=== PATIENT | male | born 1930 | race Caucasian/White ===

== ENCOUNTER 2016-07-04 20:00 | Inpatient (IN) | payer MEDICARE ==
[~2016-07-04] VITALS: Ht 172.7 cm; Wt 66.0 kg
[~2016-07-04 20:00] MED LIST: ACET325T9 PO; ACET500T68 PO; CHOL10003 PO; CHOL20004 PO; CYAN10005 PO; CYCL10TA2 PO; CYCL5TAB PO; DIVA125C PO; GABA-586 PO; LISI-338 PO; MAG355OR12 PO; MAGN2400 PO; MEDR2.5T PO; MELA1TAB13 PO; MELA3TAB12 PO; MENT113G6 TP; MULT-480 PO; OXYB5TAB7 PO; TRAZ50TA15 PO
[2016-07-04 20:50] LABS: BASO % 0 % (0-3); EOS # 0.2 x10^3/uL (0.0-0.7); EOS % 2 % (0-3); HEMATOCRIT 32.8 % (39.0-53.0); HEMOGLOBIN 10.6 g/dL (13.0-17.5); LYMPH # 1.8 x10^3/uL (1.0-4.8); LYMPH % 19 % (24-48); MEAN CORPUSCULAR HEMOGLOBIN 32 pg (25-35); MEAN CORPUSCULAR HGB CONC 32 g/dL (31-37); MEAN CORPUSCULAR VOLUME 98 fL (79-100); MONO # 0.6 x10^3/uL (0.0-1.1); MONO % 7 % (0-9); NEUT # 6.8 x10^3uL (1.8-7.7); NEUT % 72 % (31-73); PLATELET COUNT 198 x10^3/uL (140-400); RED BLOOD COUNT 3.36 x10^6/uL (4.30-5.70); RED CELL DISTRIBUTION WIDTH 14.4 % (11.5-14.5); WHITE BLOOD COUNT 9.4 x10^3/uL (4.0-11.0)
[2016-07-04 21:01] LABS: ALBUMIN 2.9 g/dL (3.4-5.0); ALBUMIN/GLOBULIN RATIO 0.9 (1.0-1.7); ALK PHOS 74 U/L (46-116); ALT (SGPT) 10 U/L (16-63); ANION GAP 5 (6-14); AST (SGOT) 6 U/L (15-37); BLOOD UREA NITROGEN 30 mg/dL (8-26); BUN/CREATININE RATIO 27 (6-20); CALCIUM 8.6 mg/dL (8.5-10.1); CARBON DIOXIDE 31 mmol/L (21-32); CHLORIDE 105 mmol/L (98-107); CREATININE 1.1 mg/dL (0.7-1.3); GFR 63.3; GLUCOSE 106 mg/dL (70-99); POTASSIUM 4.2 mmol/L (3.5-5.1); SODIUM 141 mmol/L (136-145); TOTAL BILIRUBIN 0.2 mg/dL (0.2-1.0); TOTAL PROTEIN 6.3 g/dL (6.4-8.2)
--- NOTE | 2016-07-04 21:01 | RAD ---
PROCEDURE CT head without contrast HISTORY Altered level consciousness TECHNIQUE Axial images are obtained of the head from the skull base through the vertex without IV contrast FINDINGS There is moderate diffuse atrophy. No obvious intracranial mass, mass-effect, midline shift, hemorrhage or obvious acute infarction is identified.Basilar cisterns are patent. Bone windows demonstrate no acute calvarial abnormality.The visualized paranasal sinuses appear clear. IMPRESSION No acute intracranial process. PQRS Statement: One or more of the following individualized dose reduction techniques were utilized for this study: 1. Automated exposure control. 2. Adjustment of the mA and/or kV according to patient size. 3. Use of iterative reconstruction technique. Electronically signed by: Henry Vega MD (Jul 04, 2016 21:00:37)
[2016-07-04 21:02] LABS: BARBITURATES NEG (NEG); BENZODIAZEPINES NEG (NEG); CANNABINOIDS NEG (NEG); COCAINE NEG (NEG); METHADONE NEG (NEG); OPIATES NEG (NEG); PHENCYCLIDINE NEG (NEG)
[2016-07-04 21:02] LABS: VAL ACID 41 mcg/mL (50-100)
[2016-07-04 21:04] LABS: ACETAMIN < 2.0 mcg/mL (10-30); SALIC 0.4 mg/dL (2.8-20.0)
[2016-07-04 21:05] LABS: ETHANOL < 10 mg/dL (0-10)
[2016-07-04 21:07] LABS: AMPHETAMINE/METHAMPHETAMINE NEG (NEG)
[2016-07-04 21:28] LABS: BILIRUBIN,URINE NEG (NEG); CLARITY,URINE CLOUDY; COLOR,URINE YELLOW; GLUCOSE,URINE NEG (NEG)
[2016-07-04 21:29] LABS: BACTERIA,URINE MOD /HPF (0-FEW); NITRITE,URINE NEG (NEG); RBC,URINE 0 /HPF (0-2); SQUAMOUS EPITHELIAL CELL,UR FEW /LPF; UROBILINOGEN,URINE 1 mg/dL (0.2 mg/dL); WBC,URINE 20-40 /HPF (0-4)
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
--- NOTE | 2016-07-04 22:30 | EKG ---
[address] [address] Test Date: 2016-07-04 Test Time: 20:32:49 Pat Name: RIOS ACUNA Department: Room: Gender: M Project Manager/Design Manager: Brenda : 1930 Requested By: ANTHONY HARGROVE Order Number: [id number] Reading MD: Measurements Intervals [place] Rate: 72 P: 43 MN: 148 QRS: 5 QRSD: 80 T: 62 QT: 374 QTc: 411 Interpretive Statements SINUS RHYTHM QRS(T) CONTOUR ABNORMALITY CONSIDER ANTEROSEPTAL MYOCARDIAL DAMAGE POSSIBLY ABNORMAL ECG RI6.01 Unconfirmed report No previous ECG available for comparison
[2016-07-04] MEDS ORDERED: MAGNESIUM HYDROXIDE 2,400 MG/30 ML ORAL.SUSP. PO PRN (23:00)
[2016-07-04] MEDS ORDERED: METHYL SALICYLATE/MENTHOL TOPICAL OINTMENT 29GM TUBE. TP PRN (23:00)
[2016-07-04] MEDS ORDERED: ACETAMINOPHEN 325 MG TABLET PO PRN (23:00)
[2016-07-04] MEDS ORDERED: MAG HYDROX/AL HYDROX/SIMETH 30 ML ORAL.SUSP PO PRN (23:00)
[2016-07-05] MEDS ORDERED: DONE5TAB7 PO (00:25)
[2016-07-05] MEDS ORDERED: GUAI100L27 PO (00:25)
[2016-07-05] MEDS ORDERED: QUET100T PO (00:25)
[2016-07-05] MEDS ORDERED: TRAZ50TA15 PO (00:25)
[2016-07-05] MEDS ORDERED: DOCU-27 PO (00:25)
[2016-07-05] MEDS ORDERED: CEPH-264 PO (00:25)
[2016-07-05] MEDS ORDERED: RIVA1.5C4 PO (00:25)
[2016-07-05] MEDS ORDERED: HALO1TAB PO (00:25)
[2016-07-05] MEDS ORDERED: CYCL5TAB PO (00:25)
[2016-07-05] MEDS ORDERED: LATA2.5D3 OU (00:25)
[2016-07-05] MEDS ORDERED: HALOPERIDOL 1 MG TABLET PO PRN (00:30)
[2016-07-05 01:01] VITALS: BP 139/97
[2016-07-05 05:52] VITALS: BP 157/79
[2016-07-05] MEDS ORDERED: GUAIFENESIN 300 MG/15 ML LIQUID. PO PRN (07:15)
[2016-07-05] MEDS ORDERED: OXYBUTYNIN CHLORIDE 5 MG TABLET PO PRN (07:15)
[2016-07-05] MEDS ORDERED: CYCLOBENZAPRINE 10 MG TABLET. PO PRN (07:30)
--- NOTE | 2016-07-05 08:13 | PDOC ---
Exam Scar Demential Exam: Scar Note: Please also refer to the addendum to this progress note~for this date of service dictated separately.~Patient seen individually. Discussed the patient with Nursing staff reviewed the chart.~Reviewed interim history and current functioning. Reviewed vital signs,~Labs/ Radiology~and current medications noted below. Continue current treatment with the changes noted in the dictated addendum note Assessment: Vital Signs: Vital Signs Date Time Temp Pulse Resp B/P Pulse Ox O2 Delivery O2 Flow Rate FiO2 07/05/16 05:52 97.5 86 17 157/79 96 07/04/16 20:00 Room Air Labs: Laboratory Tests Test 07/04/16 20:20 07/04/16 20:25 White Blood Count 9.4x10^3/uL (4.0-11.0) Red Blood Count 3.36x10^6/uL (4.30-5.70) L Hemoglobin 10.6g/dL (13.0-17.5) L Hematocrit 32.8% (39.0-53.0) L Mean Corpuscular Volume 98fL (79-100) Mean Corpuscular Hemoglobin 32pg (25-35) Mean Corpuscular Hemoglobin Concent 32g/dL (31-37) Red Cell Distribution Width 14.4% (11.5-14.5) Platelet Count 198x10^3/uL (140-400) Neutrophils (%) (Auto) 72% (31-73) Lymphocytes (%) (Auto) 19% (24-48) L Monocytes (%) (Auto) 7% (0-9) Eosinophils (%) (Auto) 2% (0-3) Basophils (%) (Auto) 0% (0-3) Neutrophils # (Auto) 6.8x10^3uL (1.8-7.7) Lymphocytes # (Auto) 1.8x10^3/uL (1.0-4.8) Monocytes # (Auto) 0.6x10^3/uL (0.0-1.1) Eosinophils # (Auto) 0.2x10^3/uL (0.0-0.7) Basophils # (Auto) 0.0x10^3/uL (0.0-0.2) Sodium Level 141mmol/L (136-145) Potassium Level 4.2mmol/L (3.5-5.1) Chloride Level 105mmol/L (98-107) Carbon Dioxide Level 31mmol/L (21-32) Anion Gap 5 (6-14) L Blood Urea Nitrogen 30mg/dL (8-26) H Creatinine 1.1mg/dL (0.7-1.3) Estimated GFR (Cockcroft-Gault) 63.3 BUN/Creatinine Ratio 27 (6-20) H Glucose Level 106mg/dL (70-99) H Calcium Level 8.6mg/dL (8.5-10.1) Magnesium Level 1.6mg/dL (1.8-2.4) L Total Bilirubin 0.2mg/dL (0.2-1.0) Aspartate Amino Transferase (AST) 6U/L (15-37) L Alanine Aminotransferase (ALT) 10U/L (16-63) L Alkaline Phosphatase 74U/L (46-116) Ammonia 27mcmol/L (11-34) Total Protein 6.3g/dL (6.4-8.2) L Albumin 2.9g/dL (3.4-5.0) L Albumin/Globulin Ratio 0.9 (1.0-1.7) L Salicylates Level 0.4mg/dL (2.8-20.0) L Salicylate Last Dose Date Unknown Salicylate Last Dose Time Unknown Acetaminophen Level < 2.0mcg/mL (10-30) L Acetaminophen Last Dose Date Unknown Acetaminophen Last Dose Time Unknown Valproic Acid Level 41mcg/mL (50-100) L Valproic Acid Last Dose Date Unknown Valproic Acid Last Dose Time Unknown Ethyl Alcohol Level < 10mg/dL (0-10) Acetone Level Neg (NEG) Urine Collection Type Unknown Urine Color Yellow Urine Clarity Cloudy Urine pH 7.0 Urine Specific [place] 1.020 Urine Protein 30 mg/dl (NEG-TRACE) Urine Glucose (UA) Negmg/dL (NEG) Urine Ketones (Stick) Negmg/dL (NEG) Urine Blood Neg (NEG) Urine Nitrite Neg (NEG) Urine Bilirubin Neg (NEG) Urine Urobilinogen Dipstick 1mg/dL (0.2 mg/dL) Urine Leukocyte Esterase Trace (NEG) Urine RBC 0/HPF (0-2) Urine WBC 20-40/HPF (0-4) Urine Squamous Epithelial Cells Few/LPF Urine Bacteria Mod/HPF (0-FEW) Urine Opiates Screen Neg (NEG) Urine Methadone Screen Neg (NEG) Urine Barbiturates Neg (NEG) Urine Phencyclidine Screen Neg (NEG) Urine Amphetamine/Methamphetamine Neg (NEG) Urine Benzodiazepines Screen Neg (NEG) Urine Cocaine Screen Neg (NEG) Urine Cannabinoids Screen Neg (NEG) Urine Ethyl Alcohol Neg (NEG) Current Medications: Meds: Current Medications Acetaminophen (Tylenol) 650 mg PRN Q6HRS PRN PO PAIN / TEMP; Start 07/04/16 at 23:00; Stop 07/05/16 at 07:21; Status DC Multi-Ingredient Ointment (Analgesic Mutual) 1 martir PRN QID PRN TP MUSCLE PAIN; Start 07/04/16 at 23:00 Al Hydroxide/Mg Hydroxide (Mylanta Plus Xs) 15 ml PRN AFTMEALHC PRN PO DYSPEPSIA; Start 07/04/16 at 23:00 Magnesium Hydroxide (Milk Of Magnesia) 2,400 mg PRN QHS PRN PO CONSTIPATION; Start 07/04/16 at 23:00 Divalproex Sodium (Depakote Sprinkles) 125 mg QID PO ; Start 07/05/16 at 09:00 Donepezil HCl (Aricept) 5 mg DAILY PO ; Start 07/05/16 at 09:00 Haloperidol (Haldol) 1 mg PRN Q4HRS PRN PO AGITATION; Start 07/05/16 at 00:30 Medroxyprogesterone Acetate (Provera) 5 mg DAILY PO ; Start 07/05/16 at 09:00 Quetiapine Fumarate (SEROquel) 100 mg BID PO ; Start 07/05/16 at 09:00 Rivastigmine Tartrate (Exelon) 1.5 mg BID PO ; Start 07/05/16 at 09:00 Trazodone HCl (Desyrel) 25 mg QHS PO ; Start 07/05/16 at 21:00 Acetaminophen (Tylenol) 650 mg PRN TID PRN PO PAIN / TEMP; Start 07/05/16 at 07 :15 Cephalexin HCl (Keflex) 500 mg TID PO ; Start 07/05/16 at 09:00 Vitamin D (Vitamin D3) 1,000 unit DAILY PO ; Start 07/05/16 at 09:00 Docusate Sodium (Colace) 100 mg DAILY PO ; Start 07/05/16 at 09:00 Guaifenesin (Robitussin) 200 mg PRN Q8HRS PRN PO COUGH; Start 07/05/16 at 07:15 Latanoprost (Xalatan) 1 drop QHS OU ; Start 07/05/16 at 21:00 Oxybutynin Chloride (Ditropan) 2.5 mg PRN BID PRN PO BLADDER SPASM; Start 07/05 at 07:15 Cyclobenzaprine HCl (Flexeril) 5 mg PRN TID PRN PO MUSCLE SPASMS; Start at 07:30 Active Scripts Active Reported Keflex (Cephalexin) 500 Mg Capsule 500 Mg PO TID Cyclobenzaprine Hcl 5 Mg Tablet 5 Mg PO PRN TID PRN Haloperidol 1 Mg Tablet 1 Mg PO PRN Q4HRS PRN Robafen (Guaifenesin) 100 Mg/5 Ml Liquid 10 Ml PO PRN Q8HRS PRN Trazodone Hcl 50 Mg Tablet 25 Mg PO QHS Latanoprost 2.5 Ml Drops 1 Drop OU QHS Donepezil Hcl 5 Mg Tablet 5 Mg PO DAILY Quetiapine Fumarate 100 Mg Tablet 100 Mg PO BID Rivastigmine (Rivastigmine Tartrate) 1.5 Mg Capsule 1.5 Mg PO BID Colace (Docusate Sodium) 100 Mg Capsule 100 Mg PO DAILY Depakote Sprinkle (Divalproex Sodium) 125 Mg Cap.sprink 125 Mg PO QID Give with food. Do Not Crush or chew lpellets. Hazardous Medication: Dispose of unused medication and packaging in proper container. Provera (Medroxyprogesterone Acetate) 2.5 Mg Tablet 5 Mg PO DAILY Tylenol (Acetaminophen) 325 Mg Tablet 650 Mg PO PRN TID PRN Not to exceed 3 grams per day Vitamin D3 (Cholecalciferol (Vitamin D3)) 1,000 Unit Tablet 1,000 Unit PO DAILY Oxybutynin Chloride 5 Mg Tablet 2.5 Mg PO PRN BID PRN Diagnosis: Problems: (1) Dementia SAPPHIRE MATTHEW MD Jul 05, 2016 08:13
--- NOTE | 2016-07-05 08:19 | RAD ---
EXAM: Chest one view. HISTORY: Cough, altered mental status. COMPARISON: None. FINDINGS: A frontal view of the chest is obtained. There are no confluent infiltrates. There is no pneumothorax or pleural effusion. The heart is not enlarged. There are atherosclerotic calcifications of the aorta. There is a chronic healed left proximal humeral fracture deformity. Changes of rotator cuff arthropathy and moderate glenohumeral osteoarthritis are noted bilaterally. IMPRESSION: 1. No confluent infiltrates.
[2016-07-05] MEDS: DOCUSATE SODIUM 100 MG CAPSULE PO SCH (08:46)
[2016-07-05] MEDS: QUEtiapine 100 MG TABLET. PO SCH ×2 (08:47→19:22)
[2016-07-05] MEDS: CHOLECALCIFEROL (VITAMIN D3) 1,000 UNIT TABLET PO SCH (08:47)
[2016-07-05] MEDS: RIVASTIGMINE. 1.5 MG CAPSULE. PO SCH ×2 (08:47→19:22)
[2016-07-05] MEDS: MEDROXYPROGESTERONE 2.5 MG PO SCH (08:47)
[2016-07-05] MEDS: CEPHALEXIN 500 MG CAPSULE PO SCH ×3 (08:47→19:22)
[2016-07-05] MEDS: DIVALPROEX 125 MG CAP.SPRINK PO SCH ×4 (08:47→19:22)
[2016-07-05] MEDS: DONEPEZIL HCL 5 MG TABLET. PO SCH (08:47)
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
[2016-07-05] MEDS: MAGNESIUM OXIDE 400 MG TABLET PO SCH (12:07)
[2016-07-05 13:45] LABS: IRON,SERUM 21 ug/dL (65-175)
[2016-07-05 15:51] VITALS: BP 125/79
[2016-07-05 19:10] LABS: THYROXINE 3.6 ug/dL (4.5-12.0)
[2016-07-05] MEDS: traZODone 50 MG TABLET. PO SCH (21:29)
[2016-07-05] MEDS: LATANOPROST 0.005% OPHTH SOLUTION 2.5ML BOTTLE. OU SCH (21:29)
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
--- NOTE | 2016-07-05 23:52 | ACF ---
Admission Criteria Forms PSYCHIATRIC DISORDERS Clinical Indications for Inpatient Care (Place 'X' for any and all applicable criteria): Ongoing inpatient care may be needed for ANY ONE of the following(1)(2)(3)(4)(6) (7)(8): [ ]I. Danger to self or others not manageable at lower level of care. [ ]II. Grave disability (eg, inability to perform self care necessary at lower level of care) [X]III. Agitation or inappropriate behavior interfering with care for primary condition (eg, attempting to discontinue lines or drains prematurely, unable to cooperate with respiratory care) [ ]IV. Severe disability or disorder indicated by ALL of the following: [ ]a) Severe behavioral health disorder-related symptoms or condition indicated by ANY ONE of the following: [ ]i) Severe problem with cognition, memory, judgment, or impulse control [ ]ii) Severe clinical manifestations (eg, hallucinations, delusions, other acute psychotic symptoms, phoebe, extreme agitation or anxiety) [ ]b) Patient management at lower level of care is not feasible until acute intervention or modification is initiated. Extended stay beyond goal length of stay for the primary condition may be indicated when ANY ONE of the following is present: (1)(2)(3)(4): [ ]a) Patient is a danger to self or others and not manageable at lower level of care. [ ]b) Behavior crisis management, including physical or chemical restraints, is required and is not available at a lower level of care. [ ]c) Behavioral symptoms (e.g., agitation, somnolence, inappropriate behavior) are present, and are not manageable at a lower level of care. [ ]d) Patient cannot understand follow-up treatment and crisis plan. [ ]e) Provider and supports are not sufficiently available at lower level of care. [ ]f) Patient cannot participate (e.g., verify absence of plan for harm) and is in needed of monitoring. The original [employer] content created by [employer] has been revised. The portions of the content which have been revised are identified through the use of italic text or in bold, and [facility] has neither reviewed nor approved the modified material. All other unmodified content is copyright [facility] [employer]. Please see references footnoted in the original [facility] edition 2016 Admission Criteria Met?: Yes NEO ANDERSON Jul 05, 2016 23:52
[2016-07-06 04:09] LABS: HEMOGLOBIN A1C 5.1 % (4.8-5.6); VITAMIN D25(OH)TOTAL 34.9 ng/mL (30.0-100.0)
[2016-07-06 05:37] VITALS: BP 147/72
--- NOTE | 2016-07-06 08:21 | PDOC ---
Exam Scar Demential Exam: Scar Note: Please also refer to the separate dictated note~for this date of service dictated separately.~Patient seen individually. Discussed the patient with Nursing staff reviewed the chart.~Reviewed interim history and current functioning. Reviewed vital signs,~Labs/ Radiology~and current medications noted below. Continue current treatment with the changes noted in the dictated addendum note Assessment: Vital Signs: Vital Signs Date Time Temp Pulse Resp B/P Pulse Ox O2 Delivery O2 Flow Rate FiO2 07/06/16 05:37 98.4 64 18 147/72 97 07/04/16 20:00 Room Air I&O Intake and Output 07/06/16 07:00 Intake Total 1200 ml Balance 1200 ml Intake Oral 1200 ml Current Medications: Meds: Current Medications Acetaminophen (Tylenol) 650 mg PRN Q6HRS PRN PO PAIN / TEMP; Start 07/04/16 at 23:00; Stop 07/05/16 at 07:21; Status DC Multi-Ingredient Ointment (Analgesic [place]) 1 martir PRN QID PRN TP MUSCLE PAIN; Start 07/04/16 at 23:00 Al Hydroxide/Mg Hydroxide (Mylanta Plus Xs) 15 ml PRN AFTMEALHC PRN PO DYSPEPSIA; Start 07/04/16 at 23:00 Magnesium Hydroxide (Milk Of Magnesia) 2,400 mg PRN QHS PRN PO CONSTIPATION; Start 07/04/16 at 23:00 Divalproex Sodium (Depakote Sprinkles) 125 mg QID PO Last administered on 19:22; Start 07/05/16 at 09:00 Donepezil HCl (Aricept) 5 mg DAILY PO Last administered on 07/05/16 08:47; Start 07/05/16 at 09:00 Haloperidol (Haldol) 1 mg PRN Q4HRS PRN PO AGITATION; Start 07/05/16 at 00:30 Medroxyprogesterone Acetate (Provera) 5 mg DAILY PO Last administered on 08:47; Start 07/05/16 at 09:00 Quetiapine Fumarate (SEROquel) 100 mg BID PO Last administered on 07/05/16 19: 22; Start 07/05/16 at 09:00 Rivastigmine Tartrate (Exelon) 1.5 mg BID PO Last administered on 07/05/16 19: 22; Start 07/05/16 at 09:00 Trazodone HCl (Desyrel) 25 mg QHS PO Last administered on 07/05/16 21:29; Start 07/05/16 at 21:00 Acetaminophen (Tylenol) 650 mg PRN TID PRN PO PAIN / TEMP; Start 07/05/16 at 07 :15 Cephalexin HCl (Keflex) 500 mg TID PO Last administered on 07/05/16 19:22; Start 07/05/16 at 09:00 Vitamin D (Vitamin D3) 1,000 unit DAILY PO Last administered on 07/05/16 08:47 ; Start 07/05/16 at 09:00 Docusate Sodium (Colace) 100 mg DAILY PO Last administered on 07/05/16 08:46; Start 07/05/16 at 09:00 Guaifenesin (Robitussin) 200 mg PRN Q8HRS PRN PO COUGH; Start 07/05/16 at 07:15 Latanoprost (Xalatan) 1 drop QHS OU Last administered on 07/05/16 21:29; Start 07/05/16 at 21:00 Oxybutynin Chloride (Ditropan) 2.5 mg PRN BID PRN PO BLADDER SPASM; Start 07/05 at 07:15 Cyclobenzaprine HCl (Flexeril) 5 mg PRN TID PRN PO MUSCLE SPASMS; Start at 07:30 Magnesium Oxide (Magnesium Oxide) 400 mg DAILY PO Last administered on 12:07; Start 07/05/16 at 11:00 Active Scripts Active Reported Keflex (Cephalexin) 500 Mg Capsule 500 Mg PO TID Cyclobenzaprine Hcl 5 Mg Tablet 5 Mg PO PRN TID PRN Haloperidol 1 Mg Tablet 1 Mg PO PRN Q4HRS PRN Robafen (Guaifenesin) 100 Mg/5 Ml Liquid 10 Ml PO PRN Q8HRS PRN Trazodone Hcl 50 Mg Tablet 25 Mg PO QHS Latanoprost 2.5 Ml Drops 1 Drop OU QHS Donepezil Hcl 5 Mg Tablet 5 Mg PO DAILY Quetiapine Fumarate 100 Mg Tablet 100 Mg PO BID Rivastigmine (Rivastigmine Tartrate) 1.5 Mg Capsule 1.5 Mg PO BID Colace (Docusate Sodium) 100 Mg Capsule 100 Mg PO DAILY Depakote Sprinkle (Divalproex Sodium) 125 Mg Cap.sprink 125 Mg PO QID Give with food. Do Not Crush or chew lpellets. Hazardous Medication: Dispose of unused medication and packaging in proper container. Provera (Medroxyprogesterone Acetate) 2.5 Mg Tablet 5 Mg PO DAILY Tylenol (Acetaminophen) 325 Mg Tablet 650 Mg PO PRN TID PRN Not to exceed 3 grams per day Vitamin D3 (Cholecalciferol (Vitamin D3)) 1,000 Unit Tablet 1,000 Unit PO DAILY Oxybutynin Chloride 5 Mg Tablet 2.5 Mg PO PRN BID PRN Diagnosis: Problems: (1) Dementia SAPPHIRE MATTHEW MD Jul 06, 2016 08:21
[2016-07-06] MEDS: CHOLECALCIFEROL (VITAMIN D3) 1,000 UNIT TABLET PO SCH (09:04)
[2016-07-06] MEDS: DOCUSATE SODIUM 100 MG CAPSULE PO SCH (09:04)
[2016-07-06] MEDS: QUEtiapine 100 MG TABLET. PO SCH ×2 (09:04→19:47)
[2016-07-06] MEDS: DONEPEZIL HCL 5 MG TABLET. PO SCH (09:04)
[2016-07-06] MEDS: MAGNESIUM OXIDE 400 MG TABLET PO SCH (09:04)
[2016-07-06] MEDS: DIVALPROEX 125 MG CAP.SPRINK PO SCH ×4 (09:04→19:46)
[2016-07-06] MEDS: CEPHALEXIN 500 MG CAPSULE PO SCH ×3 (09:04→19:46)
[2016-07-06] MEDS: MEDROXYPROGESTERONE 2.5 MG PO SCH (09:05)
[2016-07-06] MEDS: RIVASTIGMINE. 1.5 MG CAPSULE. PO SCH ×2 (09:05→19:47)
[2016-07-06] MEDS: PRENATAL MULTIVITAMIN TABLET. PO SCH (11:15)
[2016-07-06 15:31] VITALS: BP 125/78
[2016-07-06] MEDS: traZODone 50 MG TABLET. PO SCH (19:47)
[2016-07-06] MEDS: LATANOPROST 0.005% OPHTH SOLUTION 2.5ML BOTTLE. OU SCH (19:53)
[2016-07-06] MEDS: ACETAMINOPHEN 325 MG TABLET PO PRN (21:34)
[2016-07-07 06:27] VITALS: BP 148/80
--- NOTE | 2016-07-07 08:19 | PDOC ---
Exam Scar Demential Exam: Scar Note: Please also refer to the separate dictated note~for this date of service dictated separately.~Patient seen individually. Discussed the patient with Nursing staff reviewed the chart.~Reviewed interim history and current functioning. Reviewed vital signs,~Labs/ Radiology~and current medications noted below. Continue current treatment with the changes noted in the dictated addendum note Assessment: Vital Signs: Vital Signs Date Time Temp Pulse Resp B/P Pulse Ox O2 Delivery O2 Flow Rate FiO2 07/07/16 06:27 98.1 62 16 148/80 97 07/04/16 20:00 Room Air I&O Intake and Output 07/07/16 07:00 Intake Total 600 ml Balance 600 ml Intake Oral 600 ml # Voids 2 Current Medications: Meds: Current Medications Acetaminophen (Tylenol) 650 mg PRN Q6HRS PRN PO PAIN / TEMP; Start 07/04/16 at 23:00; Stop 07/05/16 at 07:21; Status DC Multi-Ingredient Ointment (Analgesic [place]) 1 martir PRN QID PRN TP MUSCLE PAIN; Start 07/04/16 at 23:00 Al Hydroxide/Mg Hydroxide (Mylanta Plus Xs) 15 ml PRN AFTMEALHC PRN PO DYSPEPSIA; Start 07/04/16 at 23:00 Magnesium Hydroxide (Milk Of Magnesia) 2,400 mg PRN QHS PRN PO CONSTIPATION; Start 07/04/16 at 23:00 Divalproex Sodium (Depakote Sprinkles) 125 mg QID PO Last administered on 19:46; Start 07/05/16 at 09:00 Donepezil HCl (Aricept) 5 mg DAILY PO Last administered on 07/06/16 09:04; Start 07/05/16 at 09:00 Haloperidol (Haldol) 1 mg PRN Q4HRS PRN PO AGITATION; Start 07/05/16 at 00:30 Medroxyprogesterone Acetate (Provera) 5 mg DAILY PO Last administered on 09:05; Start 07/05/16 at 09:00 Quetiapine Fumarate (SEROquel) 100 mg BID PO Last administered on 07/06/16 19: 47; Start 07/05/16 at 09:00 Rivastigmine Tartrate (Exelon) 1.5 mg BID PO Last administered on 07/06/16 19: 47; Start 07/05/16 at 09:00 Trazodone HCl (Desyrel) 25 mg QHS PO Last administered on 07/06/16 19:47; Start 07/05/16 at 21:00 Acetaminophen (Tylenol) 650 mg PRN TID PRN PO PAIN / TEMP Last administered on 07/06/16 21:34; Start 07/05/16 at 07:15 Cephalexin HCl (Keflex) 500 mg TID PO Last administered on 07/06/16 19:46; Start 07/05/16 at 09:00 Vitamin D (Vitamin D3) 1,000 unit DAILY PO Last administered on 07/06/16 09:04 ; Start 07/05/16 at 09:00 Docusate Sodium (Colace) 100 mg DAILY PO Last administered on 07/06/16 09:04; Start 07/05/16 at 09:00 Guaifenesin (Robitussin) 200 mg PRN Q8HRS PRN PO COUGH; Start 07/05/16 at 07:15 Latanoprost (Xalatan) 1 drop QHS OU Last administered on 07/06/16 19:53; Start 07/05/16 at 21:00 Oxybutynin Chloride (Ditropan) 2.5 mg PRN BID PRN PO BLADDER SPASM; Start 07/05 at 07:15 Cyclobenzaprine HCl (Flexeril) 5 mg PRN TID PRN PO MUSCLE SPASMS; Start at 07:30 Magnesium Oxide (Magnesium Oxide) 400 mg DAILY PO Last administered on 09:04; Start 07/05/16 at 11:00 Prenat Multivit/ [employer] Director/Iron/Folic Ac (Multivitamin ) 1 tab DAILYBFRLUN PO Last administered on 07/06/16 11:15; Start 07/06/16 at 11:30 Active Scripts Active Reported Keflex (Cephalexin) 500 Mg Capsule 500 Mg PO TID Cyclobenzaprine Hcl 5 Mg Tablet 5 Mg PO PRN TID PRN Haloperidol 1 Mg Tablet 1 Mg PO PRN Q4HRS PRN Robafen (Guaifenesin) 100 Mg/5 Ml Liquid 10 Ml PO PRN Q8HRS PRN Trazodone Hcl 50 Mg Tablet 25 Mg PO QHS Latanoprost 2.5 Ml Drops 1 Drop OU QHS Donepezil Hcl 5 Mg Tablet 5 Mg PO DAILY Quetiapine Fumarate 100 Mg Tablet 100 Mg PO BID Rivastigmine (Rivastigmine Tartrate) 1.5 Mg Capsule 1.5 Mg PO BID Colace (Docusate Sodium) 100 Mg Capsule 100 Mg PO DAILY Depakote Sprinkle (Divalproex Sodium) 125 Mg Cap.sprink 125 Mg PO QID Give with food. Do Not Crush or chew lpellets. Hazardous Medication: Dispose of unused medication and packaging in proper container. Provera (Medroxyprogesterone Acetate) 2.5 Mg Tablet 5 Mg PO DAILY Tylenol (Acetaminophen) 325 Mg Tablet 650 Mg PO PRN TID PRN Not to exceed 3 grams per day Vitamin D3 (Cholecalciferol (Vitamin D3)) 1,000 Unit Tablet 1,000 Unit PO DAILY Oxybutynin Chloride 5 Mg Tablet 2.5 Mg PO PRN BID PRN Diagnosis: Problems: (1) Dementia SAPPHIRE MATTHEW MD Jul 07, 2016 08:19
[2016-07-07] MEDS: DONEPEZIL HCL 5 MG TABLET. PO SCH (08:46)
[2016-07-07] MEDS: DIVALPROEX 125 MG CAP.SPRINK PO SCH ×4 (08:46→19:24)
[2016-07-07] MEDS: DOCUSATE SODIUM 100 MG CAPSULE PO SCH (08:46)
[2016-07-07] MEDS: RIVASTIGMINE. 1.5 MG CAPSULE. PO SCH ×2 (08:47→19:24)
[2016-07-07] MEDS: MAGNESIUM OXIDE 400 MG TABLET PO SCH (08:47)
[2016-07-07] MEDS: CEPHALEXIN 500 MG CAPSULE PO SCH (08:47)
[2016-07-07] MEDS: QUEtiapine 100 MG TABLET. PO SCH ×2 (08:48→19:24)
[2016-07-07] MEDS: MEDROXYPROGESTERONE 2.5 MG PO SCH (08:48)
[2016-07-07] MEDS: CHOLECALCIFEROL (VITAMIN D3) 1,000 UNIT TABLET PO SCH (08:48)
[2016-07-07] MEDS: PRENATAL MULTIVITAMIN TABLET. PO SCH (13:22)
[2016-07-07 16:09] VITALS: BP 162/51
[2016-07-07] MEDS: LATANOPROST 0.005% OPHTH SOLUTION 2.5ML BOTTLE. OU SCH (19:23)
[2016-07-07] MEDS: traZODone 50 MG TABLET. PO SCH (19:24)
[2016-07-08 06:36] VITALS: BP 135/76
--- NOTE | 2016-07-08 08:22 | PDOC ---
Exam Scar Demential Exam: Scar Note: Please also refer to the separate dictated note~for this date of service dictated separately.~Patient seen individually. Discussed the patient with Nursing staff reviewed the chart.~Reviewed interim history and current functioning. Reviewed vital signs,~Labs/ Radiology~and current medications noted below. Continue current treatment with the changes noted in the dictated addendum note Assessment: Vital Signs: Vital Signs Date Time Temp Pulse Resp B/P Pulse Ox O2 Delivery O2 Flow Rate FiO2 07/08/16 06:36 98.1 67 16 135/76 97 Room Air I&O Intake and Output 07/08/16 07:00 Intake Total 960 ml Balance 960 ml Intake Oral 960 ml Current Medications: Meds: Current Medications Acetaminophen (Tylenol) 650 mg PRN Q6HRS PRN PO PAIN / TEMP; Start 07/04/16 at 23:00; Stop 07/05/16 at 07:21; Status DC Multi-Ingredient Ointment (Analgesic [place]) 1 martir PRN QID PRN TP MUSCLE PAIN; Start 07/04/16 at 23:00 Al Hydroxide/Mg Hydroxide (Mylanta Plus Xs) 15 ml PRN AFTMEALHC PRN PO DYSPEPSIA; Start 07/04/16 at 23:00 Magnesium Hydroxide (Milk Of Magnesia) 2,400 mg PRN QHS PRN PO CONSTIPATION; Start 07/04/16 at 23:00 Divalproex Sodium (Depakote Sprinkles) 125 mg QID PO Last administered on 19:24; Start 07/05/16 at 09:00 Donepezil HCl (Aricept) 5 mg DAILY PO Last administered on 07/07/16 08:46; Start 07/05/16 at 09:00 Haloperidol (Haldol) 1 mg PRN Q4HRS PRN PO AGITATION; Start 07/05/16 at 00:30 Medroxyprogesterone Acetate (Provera) 5 mg DAILY PO Last administered on 08:48; Start 07/05/16 at 09:00 Quetiapine Fumarate (SEROquel) 100 mg BID PO Last administered on 07/07/16 19: 24; Start 07/05/16 at 09:00 Rivastigmine Tartrate (Exelon) 1.5 mg BID PO Last administered on 07/07/16 19: 24; Start 07/05/16 at 09:00 Trazodone HCl (Desyrel) 25 mg QHS PO Last administered on 07/07/16 19:24; Start 07/05/16 at 21:00 Acetaminophen (Tylenol) 650 mg PRN TID PRN PO PAIN / TEMP Last administered on 07/06/16 21:34; Start 07/05/16 at 07:15 Cephalexin HCl (Keflex) 500 mg TID PO Last administered on 07/07/16 08:47; Start 07/05/16 at 09:00; Stop 07/07/16 at 12:32; Status DC Vitamin D (Vitamin D3) 1,000 unit DAILY PO Last administered on 07/07/16 08:48 ; Start 07/05/16 at 09:00 Docusate Sodium (Colace) 100 mg DAILY PO Last administered on 07/07/16 08:46; Start 07/05/16 at 09:00 Guaifenesin (Robitussin) 200 mg PRN Q8HRS PRN PO COUGH; Start 07/05/16 at 07:15 Latanoprost (Xalatan) 1 drop QHS OU Last administered on 07/07/16 19:23; Start 07/05/16 at 21:00 Oxybutynin Chloride (Ditropan) 2.5 mg PRN BID PRN PO BLADDER SPASM; Start 07/05 at 07:15 Cyclobenzaprine HCl (Flexeril) 5 mg PRN TID PRN PO MUSCLE SPASMS; Start at 07:30 Magnesium Oxide (Magnesium Oxide) 400 mg DAILY PO Last administered on 08:47; Start 07/05/16 at 11:00 Prenat Multivit/ Garment [employer]oper/Iron/Folic Ac (Multivitamin ) 1 tab DAILYBFRLUN PO Last administered on 07/07/16 13:22; Start 07/06/16 at 11:30 Active Scripts Active Reported Keflex (Cephalexin) 500 Mg Capsule 500 Mg PO TID Cyclobenzaprine Hcl 5 Mg Tablet 5 Mg PO PRN TID PRN Haloperidol 1 Mg Tablet 1 Mg PO PRN Q4HRS PRN Robafen (Guaifenesin) 100 Mg/5 Ml Liquid 10 Ml PO PRN Q8HRS PRN Trazodone Hcl 50 Mg Tablet 25 Mg PO QHS Latanoprost 2.5 Ml Drops 1 Drop OU QHS Donepezil Hcl 5 Mg Tablet 5 Mg PO DAILY Quetiapine Fumarate 100 Mg Tablet 100 Mg PO BID Rivastigmine (Rivastigmine Tartrate) 1.5 Mg Capsule 1.5 Mg PO BID Colace (Docusate Sodium) 100 Mg Capsule 100 Mg PO DAILY Depakote Sprinkle (Divalproex Sodium) 125 Mg Cap.sprink 125 Mg PO QID Give with food. Do Not Crush or chew lpellets. Hazardous Medication: Dispose of unused medication and packaging in proper container. Provera (Medroxyprogesterone Acetate) 2.5 Mg Tablet 5 Mg PO DAILY Tylenol (Acetaminophen) 325 Mg Tablet 650 Mg PO PRN TID PRN Not to exceed 3 grams per day Vitamin D3 (Cholecalciferol (Vitamin D3)) 1,000 Unit Tablet 1,000 Unit PO DAILY Oxybutynin Chloride 5 Mg Tablet 2.5 Mg PO PRN BID PRN Diagnosis: Problems: (1) Dementia SAPPHIRE MATTHEW MD Jul 08, 2016 08:22
[2016-07-08] MEDS: RIVASTIGMINE. 1.5 MG CAPSULE. PO SCH (09:00)
[2016-07-08] MEDS: MEDROXYPROGESTERONE 2.5 MG PO SCH (09:06)
[2016-07-08] MEDS: DIVALPROEX 125 MG CAP.SPRINK PO SCH ×4 (09:06→19:34)
[2016-07-08] MEDS: QUEtiapine 100 MG TABLET. PO SCH ×2 (09:06→19:35)
[2016-07-08] MEDS: DOCUSATE SODIUM 100 MG CAPSULE PO SCH (09:14)
[2016-07-08] MEDS: DONEPEZIL HCL 5 MG TABLET. PO SCH (09:14)
[2016-07-08] MEDS: MAGNESIUM OXIDE 400 MG TABLET PO SCH (09:15)
[2016-07-08] MEDS: CHOLECALCIFEROL (VITAMIN D3) 1,000 UNIT TABLET PO SCH (09:15)
[2016-07-08] MEDS: PRENATAL MULTIVITAMIN TABLET. PO SCH (13:00)
--- NOTE | 2016-07-08 14:57 | PN ---
DATE: 07/06/2016 This is a late entry 07/06/2016, covers elements not covered in my initial note. SUBJECTIVE: The patient remains somewhat forgetful; otherwise, pleasant, did not want things placed in his closet per nursing report, but relented. He is able to transfer himself from the wheelchair to the chair and his bed. I met with him at some length in his room. REVIEW OF SYSTEMS: No CV, , pulmonary, eye system symptoms on review. Ambulation impaired. MENTAL STATUS EXAM: Reasonably oriented. Speech has some latency, coherent. He is pleasant. We discussed circumstances prompting admission and ways to prevent this happening again. Abstraction fair, computation impaired, language function intact, attention span short, mood and affect appears calmer. LABORATORY DATA: Reviewed. 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 PLAN: Maintain trazodone 25 mg at bedtime, Exelon is 1.5 mg b.i.d. We may increase to 3 mg b.i.d. in due course. Continue Seroquel 100 b.i.d., Provera 5 mg a day, Aricept is 5 mg a day, may need to increase this. Depakote is 125 mg 4 times a day, since there is no aggression, I will not increase it; Haldol is p.r.n. We may also need to add an SSRI agent for his mood and anxiety symptoms. We will reassess in 24 hours. MAN Tory MATTHEW MD DR: AR/becky JOB#: [id number] / [id number]
--- NOTE | 2016-07-08 15:01 | PN ---
DATE: 07/07/2016 This is a late entry for 07/07/2016, covers elements not covered in my initial note. SUBJECTIVE: The patient's UA is negative, Keflex was discontinued. He has had a good day on 07/07/2016 per nursing report, not agitated, aggressive, able to transfer himself for certain things. I met with him individually at some length in his room. REVIEW OF SYSTEMS: Ambulation impaired. No CV, , pulmonary, eye, ENT system symptoms on review. MENTAL STATUS EXAM: Oriented to himself and situation. Speech has some latency, coherent. Abstraction fair, computation impaired, language function intact, attention span short, mood and affect still somewhat dysphoric, anxious. LABORATORY DATA: Reviewed. IMPRESSION: Major depressive disorder, recurrent; anxiety disorder, unspecified; major neurocognitive disorder, Alzheimer, vascular with depression, history of delusions. PLAN: Start Zoloft 25 mg a day, continue trazodone, Exelon is 1.5 mg b.i.d., we will increase to 1.5 mg in the morning and 3 mg at night; discontinue the Aricept since he is on the Exelon. Continue Haldol p.r.n., Depakote at current dosage, Provera 5 mg a day, Seroquel 100 b.i.d. Adjust further as clinically indicated. MAN Tory MATTHEW MD DR: AR/becky JOB#: [id number] / [id number]
[2016-07-08 15:39] VITALS: BP 144/83
[2016-07-08] MEDS: traZODone 50 MG TABLET. PO SCH (19:35)
[2016-07-08] MEDS: RIVASTIGMINE 3 MG CAPSULE. PO SCH (19:43)
[2016-07-08] MEDS: LATANOPROST 0.005% OPHTH SOLUTION 2.5ML BOTTLE. OU SCH (19:44)
[2016-07-09] MEDS: ACETAMINOPHEN 325 MG TABLET PO PRN (05:01)
[2016-07-09 05:52] VITALS: BP 142/69
[2016-07-09] MEDS: DONEPEZIL HCL 5 MG TABLET. PO SCH (08:14)
[2016-07-09] MEDS: DIVALPROEX 125 MG CAP.SPRINK PO SCH ×4 (08:14→21:18)
[2016-07-09] MEDS: MEDROXYPROGESTERONE 2.5 MG PO SCH (08:14)
[2016-07-09] MEDS: MAGNESIUM OXIDE 400 MG TABLET PO SCH (08:14)
[2016-07-09] MEDS: DOCUSATE SODIUM 100 MG CAPSULE PO SCH (08:14)
[2016-07-09] MEDS: QUEtiapine 100 MG TABLET. PO SCH (08:14)
[2016-07-09] MEDS: CHOLECALCIFEROL (VITAMIN D3) 1,000 UNIT TABLET PO SCH (08:14)
[2016-07-09] MEDS: DULOXETINE HCL 20 MG CAPSULE.DR PO SCH (08:16)
[2016-07-09] MEDS: RIVASTIGMINE. 1.5 MG CAPSULE. PO SCH (08:16)
--- NOTE | 2016-07-09 09:06 | PDOC ---
Exam Scar Demential Exam: Scar Note: Please also refer to the separate dictated note~for this date of service dictated separately.~Patient seen individually. Discussed the patient with Nursing staff reviewed the chart.~Reviewed interim history and current functioning. Reviewed vital signs,~Labs/ Radiology~and current medications noted below. Continue current treatment with the changes noted in the dictated addendum note Assessment: Vital Signs: Vital Signs Date Time Temp Pulse Resp B/P Pulse Ox O2 Delivery O2 Flow Rate FiO2 07/09/16 05:52 98.6 71 18 142/69 96 07/08/16 06:36 Room Air I&O Intake and Output 07/09/16 07:00 Intake Total 1320 ml Balance 1320 ml Intake Oral 1320 ml # Voids 2 Current Medications: Meds: Current Medications Acetaminophen (Tylenol) 650 mg PRN Q6HRS PRN PO PAIN / TEMP; Start 07/04/16 at 23:00; Stop 07/05/16 at 07:21; Status DC Multi-Ingredient Ointment (Analgesic [place]) 1 martir PRN QID PRN TP MUSCLE PAIN; Start 07/04/16 at 23:00 Al Hydroxide/Mg Hydroxide (Mylanta Plus Xs) 15 ml PRN AFTMEALHC PRN PO DYSPEPSIA; Start 07/04/16 at 23:00 Magnesium Hydroxide (Milk Of Magnesia) 2,400 mg PRN QHS PRN PO CONSTIPATION; Start 07/04/16 at 23:00 Divalproex Sodium (Depakote Sprinkles) 125 mg QID PO Last administered on 08:14; Start 07/05/16 at 09:00 Donepezil HCl (Aricept) 5 mg DAILY PO Last administered on 07/09/16 08:14; Start 07/05/16 at 09:00 Haloperidol (Haldol) 1 mg PRN Q4HRS PRN PO AGITATION Last administered on 11:40; Start 07/05/16 at 00:30 Medroxyprogesterone Acetate (Provera) 5 mg DAILY PO Last administered on 08:14; Start 07/05/16 at 09:00 Quetiapine Fumarate (SEROquel) 100 mg BID PO Last administered on 07/09/16 08: 14; Start 07/05/16 at 09:00 Rivastigmine Tartrate (Exelon) 1.5 mg BID PO Last administered on 07/07/16 19: 24; Start 07/05/16 at 09:00; Stop 07/08/16 at 11:41; Status DC Trazodone HCl (Desyrel) 25 mg QHS PO Last administered on 07/08/16 19:35; Start 07/05/16 at 21:00 Acetaminophen (Tylenol) 650 mg PRN TID PRN PO PAIN / TEMP Last administered on 07/09/16 05:01; Start 07/05/16 at 07:15 Cephalexin HCl (Keflex) 500 mg TID PO Last administered on 07/07/16 08:47; Start 07/05/16 at 09:00; Stop 07/07/16 at 12:32; Status DC Vitamin D (Vitamin D3) 1,000 unit DAILY PO Last administered on 07/09/16 08:14 ; Start 07/05/16 at 09:00 Docusate Sodium (Colace) 100 mg DAILY PO Last administered on 07/09/16 08:14; Start 07/05/16 at 09:00 Guaifenesin (Robitussin) 200 mg PRN Q8HRS PRN PO COUGH; Start 07/05/16 at 07:15 Latanoprost (Xalatan) 1 drop QHS OU Last administered on 07/08/16 19:44; Start 07/05/16 at 21:00 Oxybutynin Chloride (Ditropan) 2.5 mg PRN BID PRN PO BLADDER SPASM; Start 07/05 at 07:15 Cyclobenzaprine HCl (Flexeril) 5 mg PRN TID PRN PO MUSCLE SPASMS; Start at 07:30 Magnesium Oxide (Magnesium Oxide) 400 mg DAILY PO Last administered on 08:14; Start 07/05/16 at 11:00 Prenat Multivit/ [employer]eter/Iron/Folic Ac (Multivitamin ) 1 tab DAILYBFRLUN PO Last administered on 07/08/16 13:00; Start 07/06/16 at 11:30 Rivastigmine Tartrate (Exelon) 1.5 mg DAILY08 PO Last administered on 08:16; Start 07/09/16 at 08:00 Rivastigmine Tartrate (Exelon) 3 mg HS PO Last administered on 07/08/16 19:43 ; Start 07/08/16 at 21:00 Duloxetine HCl (Cymbalta) 20 mg DAILY PO Last administered on 07/09/16 08:16; Start 07/09/16 at 09:00 Active Scripts Active Reported Keflex (Cephalexin) 500 Mg Capsule 500 Mg PO TID Cyclobenzaprine Hcl 5 Mg Tablet 5 Mg PO PRN TID PRN Haloperidol 1 Mg Tablet 1 Mg PO PRN Q4HRS PRN Robafen (Guaifenesin) 100 Mg/5 Ml Liquid 10 Ml PO PRN Q8HRS PRN Trazodone Hcl 50 Mg Tablet 25 Mg PO QHS Latanoprost 2.5 Ml Drops 1 Drop OU QHS Donepezil Hcl 5 Mg Tablet 5 Mg PO DAILY Quetiapine Fumarate 100 Mg Tablet 100 Mg PO BID Rivastigmine (Rivastigmine Tartrate) 1.5 Mg Capsule 1.5 Mg PO BID Colace (Docusate Sodium) 100 Mg Capsule 100 Mg PO DAILY Depakote Sprinkle (Divalproex Sodium) 125 Mg Cap.sprink 125 Mg PO QID Give with food. Do Not Crush or chew lpellets. Hazardous Medication: Dispose of unused medication and packaging in proper container. Provera (Medroxyprogesterone Acetate) 2.5 Mg Tablet 5 Mg PO DAILY Tylenol (Acetaminophen) 325 Mg Tablet 650 Mg PO PRN TID PRN Not to exceed 3 grams per day Vitamin D3 (Cholecalciferol (Vitamin D3)) 1,000 Unit Tablet 1,000 Unit PO DAILY Oxybutynin Chloride 5 Mg Tablet 2.5 Mg PO PRN BID PRN Diagnosis: Problems: (1) Dementia SAPPHIRE MATTHEW MD Jul 09, 2016 09:06
[2016-07-09] MEDS: PRENATAL MULTIVITAMIN TABLET. PO SCH (11:30)
[2016-07-09 15:36] VITALS: BP 132/80
[2016-07-09] MEDS: QUEtiapine 50 MG TABLET. PO SCH ×2 (16:52→21:24)
[2016-07-09] MEDS: traZODone 50 MG TABLET. PO SCH (21:18)
[2016-07-09] MEDS: RIVASTIGMINE 3 MG CAPSULE. PO SCH (21:18)
[2016-07-09] MEDS: LATANOPROST 0.005% OPHTH SOLUTION 2.5ML BOTTLE. OU SCH (21:19)
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
[2016-07-10 06:06] VITALS: BP 137/70
[2016-07-10] MEDS: DOCUSATE SODIUM 100 MG CAPSULE PO SCH (08:24)
[2016-07-10] MEDS: PRENATAL MULTIVITAMIN TABLET. PO SCH (08:24)
[2016-07-10] MEDS: CHOLECALCIFEROL (VITAMIN D3) 1,000 UNIT TABLET PO SCH (08:24)
[2016-07-10] MEDS: DONEPEZIL HCL 5 MG TABLET. PO SCH (08:24)
[2016-07-10] MEDS: MEDROXYPROGESTERONE 2.5 MG PO SCH (08:24)
[2016-07-10] MEDS: DULOXETINE HCL 20 MG CAPSULE.DR PO SCH (08:25)
[2016-07-10] MEDS: MAGNESIUM OXIDE 400 MG TABLET PO SCH (08:25)
[2016-07-10] MEDS: DIVALPROEX 125 MG CAP.SPRINK PO SCH ×4 (08:25→19:33)
[2016-07-10] MEDS: QUEtiapine 50 MG TABLET. PO SCH ×4 (08:25→19:33)
[2016-07-10] MEDS: RIVASTIGMINE. 1.5 MG CAPSULE. PO SCH (08:25)
--- NOTE | 2016-07-10 09:46 | PDOC ---
Exam Scar Demential Exam: Scar Note: Please also refer to the separate dictated note~for this date of service dictated separately.~Patient seen individually. Discussed the patient with Nursing staff reviewed the chart.~Reviewed interim history and current functioning. Reviewed vital signs,~Labs/ Radiology~and current medications noted below. Continue current treatment with the changes noted in the dictated addendum note Assessment: Vital Signs: Vital Signs Date Time Temp Pulse Resp B/P Pulse Ox O2 Delivery O2 Flow Rate FiO2 07/10/16 06:06 97.6 69 16 137/70 97 07/08/16 06:36 Room Air I&O Intake and Output 07/10/16 07:00 Intake Total 1080 ml Balance 1080 ml Intake Oral 1080 ml # Voids 1 # Bowel Movements 1 Current Medications: Meds: Current Medications Acetaminophen (Tylenol) 650 mg PRN Q6HRS PRN PO PAIN / TEMP; Start 07/04/16 at 23:00; Stop 07/05/16 at 07:21; Status DC Multi-Ingredient Ointment (Analgesic [place]) 1 martir PRN QID PRN TP MUSCLE PAIN; Start 07/04/16 at 23:00 Al Hydroxide/Mg Hydroxide (Mylanta Plus Xs) 15 ml PRN AFTMEALHC PRN PO DYSPEPSIA; Start 07/04/16 at 23:00 Magnesium Hydroxide (Milk Of Magnesia) 2,400 mg PRN QHS PRN PO CONSTIPATION; Start 07/04/16 at 23:00 Divalproex Sodium (Depakote Sprinkles) 125 mg QID PO Last administered on 08:25; Start 07/05/16 at 09:00 Donepezil HCl (Aricept) 5 mg DAILY PO Last administered on 07/10/16 08:24; Start 07/05/16 at 09:00 Haloperidol (Haldol) 1 mg PRN Q4HRS PRN PO AGITATION Last administered on 11:40; Start 07/05/16 at 00:30 Medroxyprogesterone Acetate (Provera) 5 mg DAILY PO Last administered on 08:24; Start 07/05/16 at 09:00 Quetiapine Fumarate (SEROquel) 100 mg BID PO Last administered on 07/09/16 08: 14; Start 07/05/16 at 09:00; Stop 07/09/16 at 15:41; Status DC Rivastigmine Tartrate (Exelon) 1.5 mg BID PO Last administered on 07/07/16 19: 24; Start 07/05/16 at 09:00; Stop 07/08/16 at 11:41; Status DC Trazodone HCl (Desyrel) 25 mg QHS PO Last administered on 07/09/16 21:18; Start 07/05/16 at 21:00 Acetaminophen (Tylenol) 650 mg PRN TID PRN PO PAIN / TEMP Last administered on 07/09/16 05:01; Start 07/05/16 at 07:15 Cephalexin HCl (Keflex) 500 mg TID PO Last administered on 07/07/16 08:47; Start 07/05/16 at 09:00; Stop 07/07/16 at 12:32; Status DC Vitamin D (Vitamin D3) 1,000 unit DAILY PO Last administered on 07/10/16 08:24 ; Start 07/05/16 at 09:00 Docusate Sodium (Colace) 100 mg DAILY PO Last administered on 07/10/16 08:24; Start 07/05/16 at 09:00 Guaifenesin (Robitussin) 200 mg PRN Q8HRS PRN PO COUGH; Start 07/05/16 at 07:15 Latanoprost (Xalatan) 1 drop QHS OU Last administered on 07/09/16 21:19; Start 07/05/16 at 21:00 Oxybutynin Chloride (Ditropan) 2.5 mg PRN BID PRN PO BLADDER SPASM; Start 07/05 at 07:15 Cyclobenzaprine HCl (Flexeril) 5 mg PRN TID PRN PO MUSCLE SPASMS; Start at 07:30 Magnesium Oxide (Magnesium Oxide) 400 mg DAILY PO Last administered on 08:25; Start 07/05/16 at 11:00 Prenat Multivit/ [place]/Iron/Folic Ac (Multivitamin ) 1 tab DAILYBFRLUN PO Last administered on 07/10/16 08:24; Start 07/06/16 at 11:30 Rivastigmine Tartrate (Exelon) 1.5 mg DAILY08 PO Last administered on 08:25; Start 07/09/16 at 08:00 Rivastigmine Tartrate (Exelon) 3 mg HS PO Last administered on 07/09/16 21:18 ; Start 07/08/16 at 21:00 Duloxetine HCl (Cymbalta) 20 mg DAILY PO Last administered on 07/10/16 08:25; Start 07/09/16 at 09:00 Quetiapine Fumarate (SEROquel) 50 mg QID PO Last administered on 07/10/16 08: 25; Start 07/09/16 at 17:00 Active Scripts Active Reported Keflex (Cephalexin) 500 Mg Capsule 500 Mg PO TID Cyclobenzaprine Hcl 5 Mg Tablet 5 Mg PO PRN TID PRN Haloperidol 1 Mg Tablet 1 Mg PO PRN Q4HRS PRN Robafen (Guaifenesin) 100 Mg/5 Ml Liquid 10 Ml PO PRN Q8HRS PRN Trazodone Hcl 50 Mg Tablet 25 Mg PO QHS Latanoprost 2.5 Ml Drops 1 Drop OU QHS Donepezil Hcl 5 Mg Tablet 5 Mg PO DAILY Quetiapine Fumarate 100 Mg Tablet 100 Mg PO BID Rivastigmine (Rivastigmine Tartrate) 1.5 Mg Capsule 1.5 Mg PO BID Colace (Docusate Sodium) 100 Mg Capsule 100 Mg PO DAILY Depakote Sprinkle (Divalproex Sodium) 125 Mg Cap.sprink 125 Mg PO QID Give with food. Do Not Crush or chew lpellets. Hazardous Medication: Dispose of unused medication and packaging in proper container. Provera (Medroxyprogesterone Acetate) 2.5 Mg Tablet 5 Mg PO DAILY Tylenol (Acetaminophen) 325 Mg Tablet 650 Mg PO PRN TID PRN Not to exceed 3 grams per day Vitamin D3 (Cholecalciferol (Vitamin D3)) 1,000 Unit Tablet 1,000 Unit PO DAILY Oxybutynin Chloride 5 Mg Tablet 2.5 Mg PO PRN BID PRN Diagnosis: Problems: (1) Dementia SAPPHIRE MATTHEW MD Jul 10, 2016 09:46
[2016-07-10 15:41] VITALS: BP 113/62
[2016-07-10] MEDS: traZODone 50 MG TABLET. PO SCH (19:30)
[2016-07-10] MEDS: RIVASTIGMINE 3 MG CAPSULE. PO SCH (19:31)
[2016-07-10] MEDS: LATANOPROST 0.005% OPHTH SOLUTION 2.5ML BOTTLE. OU SCH (19:33)
[2016-07-10] MEDS: ACETAMINOPHEN 325 MG TABLET PO PRN (19:51)
--- NOTE | 2016-07-11 03:05 | PN ---
DATE: 07/09/2016 This late entry for 07/09/2016 covers elements not covered in my initial note. SUBJECTIVE: Per nursing report, the patient was extremely angry, labile in the morning, beating on the window, agitated, difficult to redirect. He is compliant with his medications, received PRN then did better. REVIEW OF SYSTEMS: Ambulation impaired, in his wheelchair. No CV. , pulmonary, eye, ENT system symptoms on review. Reliability poor. I met with him in his room. MENTAL STATUS EXAM: Oriented to himself, situation, speech has some latency, coherent, abstraction fair, computation impaired, language function intact. Attention span short. Mood and affect, intermittently labile. LABORATORY DATA: Reviewed. IMPRESSION: Unchanged from initial note. PLAN: Continue Provera, Seroquel, Aricept, trazodone, Exelon, Depakote, is currently 125 mg 4 times a day and we will increase it to 250 mg 3 times a day. Follow labs level, adjust as indicated. MAN Tory MATTHEW MD DR: AR/becky JOB#: [id number] / [id number]
[2016-07-11 06:00] VITALS: BP 149/72
--- NOTE | 2016-07-11 08:27 | PDOC ---
Exam Scar Demential Exam: Scar Note: Please also refer to the separate dictated note~for this date of service dictated separately.~Patient seen individually. Discussed the patient with Nursing staff reviewed the chart.~Reviewed interim history and current functioning. Reviewed vital signs,~Labs/ Radiology~and current medications noted below. Continue current treatment with the changes noted in the dictated addendum note Assessment: Vital Signs: Vital Signs Date Time Temp Pulse Resp B/P Pulse Ox O2 Delivery O2 Flow Rate FiO2 07/11/16 06:00 97.7 73 20 149/72 97 Room Air I&O Intake and Output 07/11/16 07:00 Intake Total 1080 ml Balance 1080 ml Intake Oral 1080 ml Current Medications: Meds: Current Medications Acetaminophen (Tylenol) 650 mg PRN Q6HRS PRN PO PAIN / TEMP; Start 07/04/16 at 23:00; Stop 07/05/16 at 07:21; Status DC Multi-Ingredient Ointment (Analgesic [place]) 1 martir PRN QID PRN TP MUSCLE PAIN; Start 07/04/16 at 23:00 Al Hydroxide/Mg Hydroxide (Mylanta Plus Xs) 15 ml PRN AFTMEALHC PRN PO DYSPEPSIA; Start 07/04/16 at 23:00 Magnesium Hydroxide (Milk Of Magnesia) 2,400 mg PRN QHS PRN PO CONSTIPATION; Start 07/04/16 at 23:00 Divalproex Sodium (Depakote Sprinkles) 125 mg QID PO Last administered on 17:06; Start 07/05/16 at 09:00; Stop 07/10/16 at 17:21; Status DC Donepezil HCl (Aricept) 5 mg DAILY PO Last administered on 07/10/16 08:24; Start 07/05/16 at 09:00 Haloperidol (Haldol) 1 mg PRN Q4HRS PRN PO AGITATION Last administered on 11:40; Start 07/05/16 at 00:30 Medroxyprogesterone Acetate (Provera) 5 mg DAILY PO Last administered on 08:24; Start 07/05/16 at 09:00 Quetiapine Fumarate (SEROquel) 100 mg BID PO Last administered on 07/09/16 08: 14; Start 07/05/16 at 09:00; Stop 07/09/16 at 15:41; Status DC Rivastigmine Tartrate (Exelon) 1.5 mg BID PO Last administered on 07/07/16 19: 24; Start 07/05/16 at 09:00; Stop 07/08/16 at 11:41; Status DC Trazodone HCl (Desyrel) 25 mg QHS PO Last administered on 07/10/16 19:30; Start 07/05/16 at 21:00 Acetaminophen (Tylenol) 650 mg PRN TID PRN PO PAIN / TEMP Last administered on 07/10/16 19:51; Start 07/05/16 at 07:15 Cephalexin HCl (Keflex) 500 mg TID PO Last administered on 07/07/16 08:47; Start 07/05/16 at 09:00; Stop 07/07/16 at 12:32; Status DC Vitamin D (Vitamin D3) 1,000 unit DAILY PO Last administered on 07/10/16 08:24 ; Start 07/05/16 at 09:00 Docusate Sodium (Colace) 100 mg DAILY PO Last administered on 07/10/16 08:24; Start 07/05/16 at 09:00 Guaifenesin (Robitussin) 200 mg PRN Q8HRS PRN PO COUGH; Start 07/05/16 at 07:15 Latanoprost (Xalatan) 1 drop QHS OU Last administered on 07/10/16 19:33; Start 07/05/16 at 21:00 Oxybutynin Chloride (Ditropan) 2.5 mg PRN BID PRN PO BLADDER SPASM; Start 07/05 at 07:15 Cyclobenzaprine HCl (Flexeril) 5 mg PRN TID PRN PO MUSCLE SPASMS; Start at 07:30 Magnesium Oxide (Magnesium Oxide) 400 mg DAILY PO Last administered on 08:25; Start 07/05/16 at 11:00 Prenat Multivit/ [place]/Iron/Folic Ac (Multivitamin ) 1 tab DAILYBFRLUN PO Last administered on 07/10/16 08:24; Start 07/06/16 at 11:30 Rivastigmine Tartrate (Exelon) 1.5 mg DAILY08 PO Last administered on 08:25; Start 07/09/16 at 08:00 Rivastigmine Tartrate (Exelon) 3 mg HS PO Last administered on 07/10/16 19:31 ; Start 07/08/16 at 21:00 Duloxetine HCl (Cymbalta) 20 mg DAILY PO Last administered on 07/10/16 08:25; Start 07/09/16 at 09:00 Quetiapine Fumarate (SEROquel) 50 mg QID PO Last administered on 07/10/16 19: 33; Start 07/09/16 at 17:00 Divalproex Sodium (Depakote Sprinkles) 250 mg TID PO Last administered on 19:33; Start 07/10/16 at 21:00 Active Scripts Active Reported Keflex (Cephalexin) 500 Mg Capsule 500 Mg PO TID Cyclobenzaprine Hcl 5 Mg Tablet 5 Mg PO PRN TID PRN Haloperidol 1 Mg Tablet 1 Mg PO PRN Q4HRS PRN Robafen (Guaifenesin) 100 Mg/5 Ml Liquid 10 Ml PO PRN Q8HRS PRN Trazodone Hcl 50 Mg Tablet 25 Mg PO QHS Latanoprost 2.5 Ml Drops 1 Drop OU QHS Donepezil Hcl 5 Mg Tablet 5 Mg PO DAILY Quetiapine Fumarate 100 Mg Tablet 100 Mg PO BID Rivastigmine (Rivastigmine Tartrate) 1.5 Mg Capsule 1.5 Mg PO BID Colace (Docusate Sodium) 100 Mg Capsule 100 Mg PO DAILY Depakote Sprinkle (Divalproex Sodium) 125 Mg Cap.sprink 125 Mg PO QID Give with food. Do Not Crush or chew lpellets. Hazardous Medication: Dispose of unused medication and packaging in proper container. Provera (Medroxyprogesterone Acetate) 2.5 Mg Tablet 5 Mg PO DAILY Tylenol (Acetaminophen) 325 Mg Tablet 650 Mg PO PRN TID PRN Not to exceed 3 grams per day Vitamin D3 (Cholecalciferol (Vitamin D3)) 1,000 Unit Tablet 1,000 Unit PO DAILY Oxybutynin Chloride 5 Mg Tablet 2.5 Mg PO PRN BID PRN Diagnosis: Problems: (1) Dementia SAPPHIRE MATTHEW MD Jul 11, 2016 08:27
[2016-07-11] MEDS: RIVASTIGMINE. 1.5 MG CAPSULE. PO SCH (08:39)
[2016-07-11] MEDS: DULOXETINE HCL 20 MG CAPSULE.DR PO SCH (08:39)
[2016-07-11] MEDS: DOCUSATE SODIUM 100 MG CAPSULE PO SCH (08:39)
[2016-07-11] MEDS: MEDROXYPROGESTERONE 2.5 MG PO SCH (08:39)
[2016-07-11] MEDS: DONEPEZIL HCL 5 MG TABLET. PO SCH (08:39)
[2016-07-11] MEDS: CHOLECALCIFEROL (VITAMIN D3) 1,000 UNIT TABLET PO SCH (08:39)
[2016-07-11] MEDS: DIVALPROEX 125 MG CAP.SPRINK PO SCH ×3 (08:40→20:44)
[2016-07-11] MEDS: MAGNESIUM OXIDE 400 MG TABLET PO SCH (08:40)
[2016-07-11] MEDS: QUEtiapine 50 MG TABLET. PO SCH ×4 (08:40→20:44)
[2016-07-11] MEDS: PRENATAL MULTIVITAMIN TABLET. PO SCH (12:12)
[2016-07-11] MEDS: OLANZAPINE ZYDIS 5 MG TAB.RAPDIS PO PRN (14:55)
[2016-07-11 15:49] VITALS: BP 143/79
[2016-07-11] MEDS: traZODone 50 MG TABLET. PO SCH (20:44)
[2016-07-11] MEDS: RIVASTIGMINE 3 MG CAPSULE. PO SCH (20:44)
[2016-07-11] MEDS: LATANOPROST 0.005% OPHTH SOLUTION 2.5ML BOTTLE. OU SCH (20:45)
--- NOTE | 2016-07-12 01:30 | PN ---
DATE: 07/10/2016 PSYCHIATRIC PROGRESS NOTE This is a late entry of 07/10/2016 covers elements not covered in my initial note. SUBJECTIVE: Per nursing report, the patient has been grabbing at staff and takes his medication ____ gets irritable and labile at times and seems to be over the honeymoon phase and we are seeing what was evident at the [facility]. I met with him in his room. REVIEW OF SYSTEMS: Ambulation impaired. No CV, , pulmonary, eye, ENT system symptoms on review. MENTAL STATUS EXAM: Oriented to himself and situation. Speech has some latency, coherent. Abstraction fair, computation impaired, language function intact. Mood and affect, intermittently labile. LABORATORY DATA: Reviewed. IMPRESSION: Major neurocognitive disorder, Alzheimer, vascular with depression, delusion and behavioral disturbance; anxiety disorder, unspecified; impulse control disorder, unspecified. PLAN: Increase Depakote to 250 mg 3 times a day. Follow labs level. Continue trazodone, Exelon, Seroquel, Aricept, Provera, Cymbalta along with Haldol p.r.n. If needed, we may need to change the Haldol p.r.n. to Zyprexa p.r.n. SAPPHIRE MATTHEW MD DR: AR/becky JOB#: [id number] / [id number]
[2016-07-12 06:08] VITALS: BP 142/84
[2016-07-12] MEDS: MAGNESIUM OXIDE 400 MG TABLET PO SCH (08:18)
[2016-07-12] MEDS: DOCUSATE SODIUM 100 MG CAPSULE PO SCH (08:18)
[2016-07-12] MEDS: CHOLECALCIFEROL (VITAMIN D3) 1,000 UNIT TABLET PO SCH (08:18)
[2016-07-12] MEDS: QUEtiapine 50 MG TABLET. PO SCH ×4 (08:18→20:11)
[2016-07-12] MEDS: DULOXETINE HCL 20 MG CAPSULE.DR PO SCH (08:18)
[2016-07-12] MEDS: MEDROXYPROGESTERONE 2.5 MG PO SCH (08:18)
[2016-07-12] MEDS: DONEPEZIL HCL 5 MG TABLET. PO SCH (08:18)
[2016-07-12] MEDS: RIVASTIGMINE. 1.5 MG CAPSULE. PO SCH (08:18)
[2016-07-12] MEDS: DIVALPROEX 125 MG CAP.SPRINK PO SCH ×3 (08:18→20:11)
--- NOTE | 2016-07-12 08:30 | PDOC ---
Exam Scar Demential Exam: Scar Note: Please also refer to the separate dictated note~for this date of service dictated separately.~Patient seen individually. Discussed the patient with Nursing staff reviewed the chart.~Reviewed interim history and current functioning. Reviewed vital signs,~Labs/ Radiology~and current medications noted below. Continue current treatment with the changes noted in the dictated addendum note Assessment: Vital Signs: Vital Signs Date Time Temp Pulse Resp B/P Pulse Ox O2 Delivery O2 Flow Rate FiO2 07/12/16 06:08 97.8 74 20 142/84 94 07/11/16 06:00 Room Air I&O Intake and Output 07/12/16 07:00 Intake Total 680 ml Balance 680 ml Intake Oral 680 ml Current Medications: Meds: Current Medications Acetaminophen (Tylenol) 650 mg PRN Q6HRS PRN PO PAIN / TEMP; Start 07/04/16 at 23:00; Stop 07/05/16 at 07:21; Status DC Multi-Ingredient Ointment (Analgesic [place]) 1 martir PRN QID PRN TP MUSCLE PAIN; Start 07/04/16 at 23:00 Al Hydroxide/Mg Hydroxide (Mylanta Plus Xs) 15 ml PRN AFTMEALHC PRN PO DYSPEPSIA; Start 07/04/16 at 23:00 Magnesium Hydroxide (Milk Of Magnesia) 2,400 mg PRN QHS PRN PO CONSTIPATION; Start 07/04/16 at 23:00 Divalproex Sodium (Depakote Sprinkles) 125 mg QID PO Last administered on 17:06; Start 07/05/16 at 09:00; Stop 07/10/16 at 17:21; Status DC Donepezil HCl (Aricept) 5 mg DAILY PO Last administered on 07/12/16 08:18; Start 07/05/16 at 09:00 Haloperidol (Haldol) 1 mg PRN Q4HRS PRN PO AGITATION Last administered on 11:40; Start 07/05/16 at 00:30; Stop 07/11/16 at 14:51; Status DC Medroxyprogesterone Acetate (Provera) 5 mg DAILY PO Last administered on 08:18; Start 07/05/16 at 09:00 Quetiapine Fumarate (SEROquel) 100 mg BID PO Last administered on 07/09/16 08: 14; Start 07/05/16 at 09:00; Stop 07/09/16 at 15:41; Status DC Rivastigmine Tartrate (Exelon) 1.5 mg BID PO Last administered on 07/07/16 19: 24; Start 07/05/16 at 09:00; Stop 07/08/16 at 11:41; Status DC Trazodone HCl (Desyrel) 25 mg QHS PO Last administered on 07/11/16 20:44; Start 07/05/16 at 21:00 Acetaminophen (Tylenol) 650 mg PRN TID PRN PO PAIN / TEMP Last administered on 07/10/16 19:51; Start 07/05/16 at 07:15 Cephalexin HCl (Keflex) 500 mg TID PO Last administered on 07/07/16 08:47; Start 07/05/16 at 09:00; Stop 07/07/16 at 12:32; Status DC Vitamin D (Vitamin D3) 1,000 unit DAILY PO Last administered on 07/12/16 08:18 ; Start 07/05/16 at 09:00 Docusate Sodium (Colace) 100 mg DAILY PO Last administered on 07/12/16 08:18; Start 07/05/16 at 09:00 Guaifenesin (Robitussin) 200 mg PRN Q8HRS PRN PO COUGH; Start 07/05/16 at 07:15 Latanoprost (Xalatan) 1 drop QHS OU Last administered on 07/11/16 20:45; Start 07/05/16 at 21:00 Oxybutynin Chloride (Ditropan) 2.5 mg PRN BID PRN PO BLADDER SPASM; Start 07/05 at 07:15 Cyclobenzaprine HCl (Flexeril) 5 mg PRN TID PRN PO MUSCLE SPASMS; Start at 07:30 Magnesium Oxide (Magnesium Oxide) 400 mg DAILY PO Last administered on 08:18; Start 07/05/16 at 11:00 Prenat Multivit/ [place]/Iron/Folic Ac (Multivitamin ) 1 tab DAILYBFRLUN PO Last administered on 07/11/16 12:12; Start 07/06/16 at 11:30 Rivastigmine Tartrate (Exelon) 1.5 mg DAILY08 PO Last administered on 07/12/16 08:18; Start 07/09/16 at 08:00 Rivastigmine Tartrate (Exelon) 3 mg HS PO Last administered on 07/11/16 20:44; Start 07/08/16 at 21:00 Duloxetine HCl (Cymbalta) 20 mg DAILY PO Last administered on 07/12/16 08:18; Start 07/09/16 at 09:00 Quetiapine Fumarate (SEROquel) 50 mg QID PO Last administered on 07/12/16 08:18 ; Start 07/09/16 at 17:00 Divalproex Sodium (Depakote Sprinkles) 250 mg TID PO Last administered on 08:18; Start 07/10/16 at 21:00 Olanzapine (Zyprexa Zydis) 2.5 mg PRN Q2HR PRN PO ANXIETY / AGITATION Last administered on 07/11/16 14:55; Start 07/11/16 at 15:00 Active Scripts Active Reported Keflex (Cephalexin) 500 Mg Capsule 500 Mg PO TID Cyclobenzaprine Hcl 5 Mg Tablet 5 Mg PO PRN TID PRN Haloperidol 1 Mg Tablet 1 Mg PO PRN Q4HRS PRN Robafen (Guaifenesin) 100 Mg/5 Ml Liquid 10 Ml PO PRN Q8HRS PRN Trazodone Hcl 50 Mg Tablet 25 Mg PO QHS Latanoprost 2.5 Ml Drops 1 Drop OU QHS Donepezil Hcl 5 Mg Tablet 5 Mg PO DAILY Quetiapine Fumarate 100 Mg Tablet 100 Mg PO BID Rivastigmine (Rivastigmine Tartrate) 1.5 Mg Capsule 1.5 Mg PO BID Colace (Docusate Sodium) 100 Mg Capsule 100 Mg PO DAILY Depakote Sprinkle (Divalproex Sodium) 125 Mg Cap.sprink 125 Mg PO QID Give with food. Do Not Crush or chew lpellets. Hazardous Medication: Dispose of unused medication and packaging in proper container. Provera (Medroxyprogesterone Acetate) 2.5 Mg Tablet 5 Mg PO DAILY Tylenol (Acetaminophen) 325 Mg Tablet 650 Mg PO PRN TID PRN Not to exceed 3 grams per day Vitamin D3 (Cholecalciferol (Vitamin D3)) 1,000 Unit Tablet 1,000 Unit PO DAILY Oxybutynin Chloride 5 Mg Tablet 2.5 Mg PO PRN BID PRN Diagnosis: Problems: (1) Dementia SAPPHIRE MATTHEW MD Jul 12, 2016 08:30
[2016-07-12] MEDS: PRENATAL MULTIVITAMIN TABLET. PO SCH (11:51)
[2016-07-12 15:19] VITALS: BP 134/73
[2016-07-12] MEDS: RIVASTIGMINE 3 MG CAPSULE. PO SCH (20:11)
[2016-07-12] MEDS: LATANOPROST 0.005% OPHTH SOLUTION 2.5ML BOTTLE. OU SCH (20:11)
[2016-07-12] MEDS: traZODone 50 MG TABLET. PO SCH (20:12)
[2016-07-13 06:08] VITALS: BP 157/75
[2016-07-13 07:12] LABS: BASO % 1 % (0-3); EOS # 0.2 x10^3/uL (0.0-0.7); EOS % 3 % (0-3); HEMATOCRIT 34.6 % (39.0-53.0); HEMOGLOBIN 11.4 g/dL (13.0-17.5); LYMPH # 1.9 x10^3/uL (1.0-4.8); LYMPH % 34 % (24-48); MEAN CORPUSCULAR HEMOGLOBIN 32 pg (25-35); MEAN CORPUSCULAR HGB CONC 33 g/dL (31-37); MEAN CORPUSCULAR VOLUME 97 fL (79-100); MONO # 0.6 x10^3/uL (0.0-1.1); MONO % 11 % (0-9); NEUT % 52 % (31-73); PLATELET COUNT 207 x10^3/uL (140-400); RED BLOOD COUNT 3.58 x10^6/uL (4.30-5.70); WHITE BLOOD COUNT 5.7 x10^3/uL (4.0-11.0)
[2016-07-13 07:25] LABS: ALBUMIN 2.9 g/dL (3.4-5.0); ALBUMIN/GLOBULIN RATIO 0.8 (1.0-1.7); ALK PHOS 71 U/L (46-116); ALT (SGPT) 11 U/L (16-63); ANION GAP 2 (6-14); AST (SGOT) 11 U/L (15-37); BLOOD UREA NITROGEN 23 mg/dL (8-26); BUN/CREATININE RATIO 23 (6-20); CALCIUM 8.7 mg/dL (8.5-10.1); CARBON DIOXIDE 34 mmol/L (21-32); CHLORIDE 105 mmol/L (98-107); GFR 70.7; GLUCOSE 82 mg/dL (70-99); POTASSIUM 4.3 mmol/L (3.5-5.1); SODIUM 141 mmol/L (136-145); TOTAL BILIRUBIN 0.2 mg/dL (0.2-1.0); TOTAL PROTEIN 6.6 g/dL (6.4-8.2)
[2016-07-13 07:27] LABS: VAL ACID 46 mcg/mL (50-100)
[2016-07-13] MEDS: RIVASTIGMINE. 1.5 MG CAPSULE. PO SCH (09:48)
[2016-07-13] MEDS: DIVALPROEX 125 MG CAP.SPRINK PO SCH ×3 (09:48→20:18)
[2016-07-13] MEDS: MEDROXYPROGESTERONE 2.5 MG PO SCH (09:48)
[2016-07-13] MEDS: DULOXETINE HCL 20 MG CAPSULE.DR PO SCH (09:48)
[2016-07-13] MEDS: QUEtiapine 50 MG TABLET. PO SCH ×4 (09:48→20:18)
[2016-07-13] MEDS: DOCUSATE SODIUM 100 MG CAPSULE PO SCH (09:49)
[2016-07-13] MEDS: CHOLECALCIFEROL (VITAMIN D3) 1,000 UNIT TABLET PO SCH (09:49)
[2016-07-13] MEDS: MAGNESIUM OXIDE 400 MG TABLET PO SCH (09:49)
[2016-07-13] MEDS: DONEPEZIL HCL 5 MG TABLET. PO SCH (09:49)
--- NOTE | 2016-07-13 12:01 | PN ---
DATE: 07/12/2016 PSYCHIATRIC PROGRESS NOTE This is a late entry for 07/12/2016, covers elements not covered in my initial note of 07/12/2016. SUBJECTIVE: The patient seen individually evening of 07/12/2016. Discussed with nursing staff, reviewed the chart and the patient was staffed at a treatment team meeting with the entire team morning of 07/12/2016. The patient was quite agitated the day before hitting at the window in the afternoon, did better in the morning. Daughter remarked that the patient does well on Ativan. REVIEW OF SYSTEMS: Ambulation impaired. No CV, , pulmonary, eye, ENT system symptoms on review. MENTAL STATUS EXAM: Oriented to himself and situation. Speech has some latency, low in volume. Abstraction fair, computation impaired, language function intact, attention span short. Mood and affect are somewhat withdrawn. LABORATORY DATA: Reviewed. IMPRESSION: Major neurocognitive disorder, Alzheimer, vascular with depression, delusion, behavioral disturbance. Rest diagnosis unchanged. PLAN: Continue Exelon, trazodone, Seroquel, Provera, Aricept, Depakote, Zyprexa p.r.n., Cymbalta 20 mg a day. Valproic acid level is 41, we are adjusting the Depakote to reach a therapeutic level if necessary for impulse control problems. SAPPHIRE MATTHEW MD DR: AR/becky JOB#: [id number] / [id number]
[2016-07-13] MEDS: PRENATAL MULTIVITAMIN TABLET. PO SCH (12:30)
--- NOTE | 2016-07-13 14:17 | PN ---
DATE: 07/11/2016 PSYCHIATRIC PROGRESS NOTE This is a late entry 07/11/2016, covers elements not covered in my initial note. SUBJECTIVE: Per nursing report, the patient has been restless, agitated, grabbing at people. He grabbed at the dog, who was in the unit as part of pet therapy. At one point, he became agitated, took a broom, and hit the window with it. Zyprexa seemed to help. REVIEW OF SYSTEMS: Ambulation impaired, in his wheelchair. No CV, , pulmonary, eye system symptoms on review. I met with him in his room at some length the evening of 07/11/2016. MENTAL STATUS EXAM: Oriented to himself and situation. Speech coherent, has some latency, abstraction fair, computation impaired, language function intact, Attention span short. Mood and affect remain somewhat labile. LABORATORY DATA: Reviewed. IMPRESSION: Impulse control disorder, unspecified; major neurocognitive disorder, Alzheimer, vascular with depression, delusion, behavioral disturbance. Rest diagnoses unchanged. PLAN: Maintain current psychotropics as mentioned in my initial note. Depending on his agitation, aggression, we may need to increase the Seroquel further. SAPPHIRE MATTHEW MD DR: AR/becky JOB#: [id number] / [id number]
[2016-07-13 15:58] VITALS: BP 122/61
--- NOTE | 2016-07-13 20:04 | PDOC ---
Exam Scar Demential Exam: Scar Note: Please also refer to the separate dictated note~for this date of service dictated separately.~Patient seen individually. Discussed the patient with Nursing staff reviewed the chart.~Reviewed interim history and current functioning. Reviewed vital signs,~Labs/ Radiology~and current medications noted below. Continue current treatment with the changes noted in the dictated addendum note Assessment: Vital Signs: Vital Signs Date Time Temp Pulse Resp B/P Pulse Ox O2 Delivery O2 Flow Rate FiO2 07/13/16 15:58 97.3 72 16 122/61 96 07/11/16 06:00 Room Air I&O Intake and Output 07/13/16 07:00 Intake Total 720 ml Balance 720 ml Intake Oral 720 ml Labs: Laboratory Tests Test 07/13/16 06:42 White Blood Count 5.7x10^3/uL (4.0-11.0) Red Blood Count 3.58x10^6/uL (4.30-5.70) L Hemoglobin 11.4g/dL (13.0-17.5) L Hematocrit 34.6% (39.0-53.0) L Mean Corpuscular Volume 97fL (79-100) Mean Corpuscular Hemoglobin 32pg (25-35) Mean Corpuscular Hemoglobin Concent 33g/dL (31-37) Red Cell Distribution Width 14.0% (11.5-14.5) Platelet Count 207x10^3/uL (140-400) Neutrophils (%) (Auto) 52% (31-73) Lymphocytes (%) (Auto) 34% (24-48) Monocytes (%) (Auto) 11% (0-9) H Eosinophils (%) (Auto) 3% (0-3) Basophils (%) (Auto) 1% (0-3) Neutrophils # (Auto) 3.0x10^3uL (1.8-7.7) Lymphocytes # (Auto) 1.9x10^3/uL (1.0-4.8) Monocytes # (Auto) 0.6x10^3/uL (0.0-1.1) Eosinophils # (Auto) 0.2x10^3/uL (0.0-0.7) Basophils # (Auto) 0.0x10^3/uL (0.0-0.2) Sodium Level 141mmol/L (136-145) Potassium Level 4.3mmol/L (3.5-5.1) Chloride Level 105mmol/L (98-107) Carbon Dioxide Level 34mmol/L (21-32) H Anion Gap 2 (6-14) L Blood Urea Nitrogen 23mg/dL (8-26) Creatinine 1.0mg/dL (0.7-1.3) Estimated GFR (Cockcroft-Gault) 70.7 BUN/Creatinine Ratio 23 (6-20) H Glucose Level 82mg/dL (70-99) Calcium Level 8.7mg/dL (8.5-10.1) Total Bilirubin 0.2mg/dL (0.2-1.0) Aspartate Amino Transferase (AST) 11U/L (15-37) L Alanine Aminotransferase (ALT) 11U/L (16-63) L Alkaline Phosphatase 71U/L (46-116) Total Protein 6.6g/dL (6.4-8.2) Albumin 2.9g/dL (3.4-5.0) L Albumin/Globulin Ratio 0.8 (1.0-1.7) L Valproic Acid Level 46mcg/mL (50-100) L Valproic Acid Last Dose Date 07/12/2016 Valproic Acid Last Dose Time 2100 Current Medications: Meds: Current Medications Acetaminophen (Tylenol) 650 mg PRN Q6HRS PRN PO PAIN / TEMP; Start 07/04/16 at 23:00; Stop 07/05/16 at 07:21; Status DC Multi-Ingredient Ointment (Analgesic [place]) 1 martir PRN QID PRN TP MUSCLE PAIN; Start 07/04/16 at 23:00 Al Hydroxide/Mg Hydroxide (Mylanta Plus Xs) 15 ml PRN AFTMEALHC PRN PO DYSPEPSIA; Start 07/04/16 at 23:00 Magnesium Hydroxide (Milk Of Magnesia) 2,400 mg PRN QHS PRN PO CONSTIPATION; Start 07/04/16 at 23:00 Divalproex Sodium (Depakote Sprinkles) 125 mg QID PO Last administered on t 17:06; Start 07/05/16 at 09:00; Stop 07/10/16 at 17:21; Status DC Donepezil HCl (Aricept) 5 mg DAILY PO Last administered on 07/13/16 09:49; Start 07/05/16 at 09:00 Haloperidol (Haldol) 1 mg PRN Q4HRS PRN PO AGITATION Last administered on 11:40; Start 07/05/16 at 00:30; Stop 07/11/16 at 14:51; Status DC Medroxyprogesterone Acetate (Provera) 5 mg DAILY PO Last administered on 09:48; Start 07/05/16 at 09:00 Quetiapine Fumarate (SEROquel) 100 mg BID PO Last administered on 07/09/16 08: 14; Start 07/05/16 at 09:00; Stop 07/09/16 at 15:41; Status DC Rivastigmine Tartrate (Exelon) 1.5 mg BID PO Last administered on 07/07/16 19: 24; Start 07/05/16 at 09:00; Stop 07/08/16 at 11:41; Status DC Trazodone HCl (Desyrel) 25 mg QHS PO Last administered on 07/12/16 20:12; Start 07/05/16 at 21:00 Acetaminophen (Tylenol) 650 mg PRN TID PRN PO PAIN / TEMP Last administered on 07/10/16 19:51; Start 07/05/16 at 07:15 Cephalexin HCl (Keflex) 500 mg TID PO Last administered on 07/07/16 08:47; Start 07/05/16 at 09:00; Stop 07/07/16 at 12:32; Status DC Vitamin D (Vitamin D3) 1,000 unit DAILY PO Last administered on 07/13/16 09:49 ; Start 07/05/16 at 09:00 Docusate Sodium (Colace) 100 mg DAILY PO Last administered on 07/13/16 09:49; Start 07/05/16 at 09:00 Guaifenesin (Robitussin) 200 mg PRN Q8HRS PRN PO COUGH; Start 07/05/16 at 07:15 Latanoprost (Xalatan) 1 drop QHS OU Last administered on 07/12/16 20:11; Start 07/05/16 at 21:00 Oxybutynin Chloride (Ditropan) 2.5 mg PRN BID PRN PO BLADDER SPASM; Start 07/05 at 07:15 Cyclobenzaprine HCl (Flexeril) 5 mg PRN TID PRN PO MUSCLE SPASMS; Start at 07:30 Magnesium Oxide (Magnesium Oxide) 400 mg DAILY PO Last administered on 09:49; Start 07/05/16 at 11:00 Prenat Multivit/ [place]/Iron/Folic Ac (Multivitamin ) 1 tab DAILYBFRLUN PO Last administered on 07/13/16 12:30; Start 07/06/16 at 11:30 Rivastigmine Tartrate (Exelon) 1.5 mg DAILY08 PO Last administered on 07/13/16 09:48; Start 07/09/16 at 08:00 Rivastigmine Tartrate (Exelon) 3 mg HS PO Last administered on 07/12/16 20:11; Start 07/08/16 at 21:00 Duloxetine HCl (Cymbalta) 20 mg DAILY PO Last administered on 07/13/16 09:48; Start 07/09/16 at 09:00 Quetiapine Fumarate (SEROquel) 50 mg QID PO Last administered on 07/13/16 17:14 ; Start 07/09/16 at 17:00 Divalproex Sodium (Depakote Sprinkles) 250 mg TID PO Last administered on 12:30; Start 07/10/16 at 21:00 Olanzapine (Zyprexa Zydis) 2.5 mg PRN Q2HR PRN PO ANXIETY / AGITATION Last administered on 07/11/16 14:55; Start 07/11/16 at 15:00 Active Scripts Active Reported Keflex (Cephalexin) 500 Mg Capsule 500 Mg PO TID Cyclobenzaprine Hcl 5 Mg Tablet 5 Mg PO PRN TID PRN Haloperidol 1 Mg Tablet 1 Mg PO PRN Q4HRS PRN Robafen (Guaifenesin) 100 Mg/5 Ml Liquid 10 Ml PO PRN Q8HRS PRN Trazodone Hcl 50 Mg Tablet 25 Mg PO QHS Latanoprost 2.5 Ml Drops 1 Drop OU QHS Donepezil Hcl 5 Mg Tablet 5 Mg PO DAILY Quetiapine Fumarate 100 Mg Tablet 100 Mg PO BID Rivastigmine (Rivastigmine Tartrate) 1.5 Mg Capsule 1.5 Mg PO BID Colace (Docusate Sodium) 100 Mg Capsule 100 Mg PO DAILY Depakote Sprinkle (Divalproex Sodium) 125 Mg Cap.sprink 125 Mg PO QID Give with food. Do Not Crush or chew lpellets. Hazardous Medication: Dispose of unused medication and packaging in proper container. Provera (Medroxyprogesterone Acetate) 2.5 Mg Tablet 5 Mg PO DAILY Tylenol (Acetaminophen) 325 Mg Tablet 650 Mg PO PRN TID PRN Not to exceed 3 grams per day Vitamin D3 (Cholecalciferol (Vitamin D3)) 1,000 Unit Tablet 1,000 Unit PO DAILY Oxybutynin Chloride 5 Mg Tablet 2.5 Mg PO PRN BID PRN Diagnosis: Problems: (1) Dementia SAPPHIRE MATTHEW MD Jul 13, 2016 20:04
[2016-07-13] MEDS: RIVASTIGMINE 3 MG CAPSULE. PO SCH (20:19)
[2016-07-13] MEDS: LATANOPROST 0.005% OPHTH SOLUTION 2.5ML BOTTLE. OU SCH (20:19)
[2016-07-13] MEDS: traZODone 50 MG TABLET. PO SCH (20:19)
[2016-07-14 06:14] VITALS: BP 141/73
--- NOTE | 2016-07-14 08:01 | PDOC ---
Exam Scar Demential Exam: Scar Note: Please also refer to the separate dictated note~for this date of service dictated separately.~Patient seen individually. Discussed the patient with Nursing staff reviewed the chart.~Reviewed interim history and current functioning. Reviewed vital signs,~Labs/ Radiology~and current medications noted below. Continue current treatment with the changes noted in the dictated addendum note Assessment: Vital Signs: Vital Signs Date Time Temp Pulse Resp B/P Pulse Ox O2 Delivery O2 Flow Rate FiO2 07/14/16 06:14 97.0 66 18 141/73 95 07/11/16 06:00 Room Air I&O Intake and Output 07/14/16 07:00 Intake Total 960 ml Balance 960 ml Intake Oral 960 ml Current Medications: Meds: Current Medications Acetaminophen (Tylenol) 650 mg PRN Q6HRS PRN PO PAIN / TEMP; Start 07/04/16 at 23:00; Stop 07/05/16 at 07:21; Status DC Multi-Ingredient Ointment (Analgesic [place]) 1 martir PRN QID PRN TP MUSCLE PAIN; Start 07/04/16 at 23:00 Al Hydroxide/Mg Hydroxide (Mylanta Plus Xs) 15 ml PRN AFTMEALHC PRN PO DYSPEPSIA; Start 07/04/16 at 23:00 Magnesium Hydroxide (Milk Of Magnesia) 2,400 mg PRN QHS PRN PO CONSTIPATION; Start 07/04/16 at 23:00 Divalproex Sodium (Depakote Sprinkles) 125 mg QID PO Last administered on 17:06; Start 07/05/16 at 09:00; Stop 07/10/16 at 17:21; Status DC Donepezil HCl (Aricept) 5 mg DAILY PO Last administered on 07/13/16 09:49; Start 07/05/16 at 09:00 Haloperidol (Haldol) 1 mg PRN Q4HRS PRN PO AGITATION Last administered on 11:40; Start 07/05/16 at 00:30; Stop 07/11/16 at 14:51; Status DC Medroxyprogesterone Acetate (Provera) 5 mg DAILY PO Last administered on 09:48; Start 07/05/16 at 09:00 Quetiapine Fumarate (SEROquel) 100 mg BID PO Last administered on 07/09/16 08: 14; Start 07/05/16 at 09:00; Stop 07/09/16 at 15:41; Status DC Rivastigmine Tartrate (Exelon) 1.5 mg BID PO Last administered on 07/07/16 19: 24; Start 07/05/16 at 09:00; Stop 07/08/16 at 11:41; Status DC Trazodone HCl (Desyrel) 25 mg QHS PO Last administered on 07/13/16 20:19; Start 07/05/16 at 21:00 Acetaminophen (Tylenol) 650 mg PRN TID PRN PO PAIN / TEMP Last administered on 07/10/16 19:51; Start 07/05/16 at 07:15 Cephalexin HCl (Keflex) 500 mg TID PO Last administered on 07/07/16 08:47; Start 07/05/16 at 09:00; Stop 07/07/16 at 12:32; Status DC Vitamin D (Vitamin D3) 1,000 unit DAILY PO Last administered on 07/13/16 09:49 ; Start 07/05/16 at 09:00 Docusate Sodium (Colace) 100 mg DAILY PO Last administered on 07/13/16 09:49; Start 07/05/16 at 09:00 Guaifenesin (Robitussin) 200 mg PRN Q8HRS PRN PO COUGH; Start 07/05/16 at 07:15 Latanoprost (Xalatan) 1 drop QHS OU Last administered on 07/13/16 20:19; Start 07/05/16 at 21:00 Oxybutynin Chloride (Ditropan) 2.5 mg PRN BID PRN PO BLADDER SPASM; Start 07/05 at 07:15 Cyclobenzaprine HCl (Flexeril) 5 mg PRN TID PRN PO MUSCLE SPASMS; Start at 07:30 Magnesium Oxide (Magnesium Oxide) 400 mg DAILY PO Last administered on 09:49; Start 07/05/16 at 11:00 Prenat Multivit/ [place]/Iron/Folic Ac (Multivitamin ) 1 tab DAILYBFRLUN PO Last administered on 07/13/16 12:30; Start 07/06/16 at 11:30 Rivastigmine Tartrate (Exelon) 1.5 mg DAILY08 PO Last administered on 07/13/16 09:48; Start 07/09/16 at 08:00 Rivastigmine Tartrate (Exelon) 3 mg HS PO Last administered on 07/13/16 20:19; Start 07/08/16 at 21:00 Duloxetine HCl (Cymbalta) 20 mg DAILY PO Last administered on 07/13/16 09:48; Start 07/09/16 at 09:00 Quetiapine Fumarate (SEROquel) 50 mg QID PO Last administered on 07/13/16 20:18 ; Start 07/09/16 at 17:00 Divalproex Sodium (Depakote Sprinkles) 250 mg TID PO Last administered on 20:18; Start 07/10/16 at 21:00 Olanzapine (Zyprexa Zydis) 2.5 mg PRN Q2HR PRN PO ANXIETY / AGITATION Last administered on 07/11/16 14:55; Start 07/11/16 at 15:00 Active Scripts Active Reported Keflex (Cephalexin) 500 Mg Capsule 500 Mg PO TID Cyclobenzaprine Hcl 5 Mg Tablet 5 Mg PO PRN TID PRN Haloperidol 1 Mg Tablet 1 Mg PO PRN Q4HRS PRN Robafen (Guaifenesin) 100 Mg/5 Ml Liquid 10 Ml PO PRN Q8HRS PRN Trazodone Hcl 50 Mg Tablet 25 Mg PO QHS Latanoprost 2.5 Ml Drops 1 Drop OU QHS Donepezil Hcl 5 Mg Tablet 5 Mg PO DAILY Quetiapine Fumarate 100 Mg Tablet 100 Mg PO BID Rivastigmine (Rivastigmine Tartrate) 1.5 Mg Capsule 1.5 Mg PO BID Colace (Docusate Sodium) 100 Mg Capsule 100 Mg PO DAILY Depakote Sprinkle (Divalproex Sodium) 125 Mg Cap.sprink 125 Mg PO QID Give with food. Do Not Crush or chew lpellets. Hazardous Medication: Dispose of unused medication and packaging in proper container. Provera (Medroxyprogesterone Acetate) 2.5 Mg Tablet 5 Mg PO DAILY Tylenol (Acetaminophen) 325 Mg Tablet 650 Mg PO PRN TID PRN Not to exceed 3 grams per day Vitamin D3 (Cholecalciferol (Vitamin D3)) 1,000 Unit Tablet 1,000 Unit PO DAILY Oxybutynin Chloride 5 Mg Tablet 2.5 Mg PO PRN BID PRN Diagnosis: Problems: (1) Dementia SAPPHIRE MATTHEW MD Jul 14, 2016 08:01
[2016-07-14] MEDS: DOCUSATE SODIUM 100 MG CAPSULE PO SCH (08:17)
[2016-07-14] MEDS: RIVASTIGMINE. 1.5 MG CAPSULE. PO SCH (08:17)
[2016-07-14] MEDS: DONEPEZIL HCL 5 MG TABLET. PO SCH (08:17)
[2016-07-14] MEDS: MAGNESIUM OXIDE 400 MG TABLET PO SCH (08:17)
[2016-07-14] MEDS: DIVALPROEX 125 MG CAP.SPRINK PO SCH ×3 (08:17→20:41)
[2016-07-14] MEDS: DULOXETINE HCL 20 MG CAPSULE.DR PO SCH (08:17)
[2016-07-14] MEDS: QUEtiapine 50 MG TABLET. PO SCH ×4 (08:18→20:41)
[2016-07-14] MEDS: CHOLECALCIFEROL (VITAMIN D3) 1,000 UNIT TABLET PO SCH (08:18)
[2016-07-14] MEDS: MEDROXYPROGESTERONE 2.5 MG PO SCH (08:18)
[2016-07-14] MEDS: PRENATAL MULTIVITAMIN TABLET. PO SCH (12:06)
[2016-07-14 15:35] VITALS: BP 133/54
[2016-07-14] MEDS: RIVASTIGMINE 3 MG CAPSULE. PO SCH (20:41)
[2016-07-14] MEDS: traZODone 50 MG TABLET. PO SCH (20:42)
[2016-07-14] MEDS: LATANOPROST 0.005% OPHTH SOLUTION 2.5ML BOTTLE. OU SCH (20:42)
--- NOTE | 2016-07-14 22:30 | PN ---
DATE: 07/13/2016 PSYCHIATRIC PROGRESS NOTE This is a late entry of 07/13/2016 covers elements not covered in my initial note. SUBJECTIVE: Per nursing report, the patient did attend the craft group and was appropriate. He has been out in the day room. Reportedly took the drink of another patient, but was redirected. I met with him in his room. REVIEW OF SYSTEMS: Ambulation impaired. He is in bed, but otherwise in a wheelchair. No CV, , pulmonary, eye, ENT system symptoms on review. MENTAL STATUS EXAM: Oriented to self and situation. Speech has some latency, coherent. Abstraction fair, computation impaired, language function intact, attention span short, mood and affect somewhat withdrawn, but less labile. LABORATORY DATA: Reviewed. IMPRESSION: Unchanged from initial note. PLAN: Continue psychotropics mentioned in my initial note. Follow labs level on the Depakote. Adjust further as clinically indicated. MAN Tory MATTHEW MD DR: AR/becky JOB#: [id number] / [id number]
[2016-07-15 06:11] VITALS: BP 153/71
[2016-07-15] MEDS: DULOXETINE HCL 20 MG CAPSULE.DR PO SCH (08:03)
[2016-07-15] MEDS: DONEPEZIL HCL 5 MG TABLET. PO SCH (08:03)
[2016-07-15] MEDS: DIVALPROEX 125 MG CAP.SPRINK PO SCH ×2 (08:03→13:10)
[2016-07-15] MEDS: MAGNESIUM OXIDE 400 MG TABLET PO SCH (08:03)
[2016-07-15] MEDS: DOCUSATE SODIUM 100 MG CAPSULE PO SCH (08:03)
[2016-07-15] MEDS: RIVASTIGMINE. 1.5 MG CAPSULE. PO SCH (08:03)
[2016-07-15] MEDS: QUEtiapine 50 MG TABLET. PO SCH ×4 (08:05→19:51)
[2016-07-15] MEDS: MEDROXYPROGESTERONE 2.5 MG PO SCH (08:05)
[2016-07-15] MEDS: CHOLECALCIFEROL (VITAMIN D3) 1,000 UNIT TABLET PO SCH (08:06)
--- NOTE | 2016-07-15 08:33 | PDOC ---
Exam Scar Demential Exam: Scar Note: Please also refer to the separate dictated note~for this date of service dictated separately.~Patient seen individually. Discussed the patient with Nursing staff reviewed the chart.~Reviewed interim history and current functioning. Reviewed vital signs,~Labs/ Radiology~and current medications noted below. Continue current treatment with the changes noted in the dictated addendum note Assessment: Vital Signs: Vital Signs Date Time Temp Pulse Resp B/P Pulse Ox O2 Delivery O2 Flow Rate FiO2 07/15/16 06:11 98.2 73 18 153/71 98 07/11/16 06:00 Room Air I&O Intake and Output 07/15/16 07:00 Intake Total 960 ml Balance 960 ml Intake Oral 960 ml # Bowel Movements 1 Current Medications: Meds: Current Medications Acetaminophen (Tylenol) 650 mg PRN Q6HRS PRN PO PAIN / TEMP; Start 07/04/16 at 23:00; Stop 07/05/16 at 07:21; Status DC Multi-Ingredient Ointment (Analgesic [place]) 1 martir PRN QID PRN TP MUSCLE PAIN; Start 07/04/16 at 23:00 Al Hydroxide/Mg Hydroxide (Mylanta Plus Xs) 15 ml PRN AFTMEALHC PRN PO DYSPEPSIA; Start 07/04/16 at 23:00 Magnesium Hydroxide (Milk Of Magnesia) 2,400 mg PRN QHS PRN PO CONSTIPATION; Start 07/04/16 at 23:00 Divalproex Sodium (Depakote Sprinkles) 125 mg QID PO Last administered on 17:06; Start 07/05/16 at 09:00; Stop 07/10/16 at 17:21; Status DC Donepezil HCl (Aricept) 5 mg DAILY PO Last administered on 07/15/16 08:03; Start 07/05/16 at 09:00 Haloperidol (Haldol) 1 mg PRN Q4HRS PRN PO AGITATION Last administered on 11:40; Start 07/05/16 at 00:30; Stop 07/11/16 at 14:51; Status DC Medroxyprogesterone Acetate (Provera) 5 mg DAILY PO Last administered on 08:05; Start 07/05/16 at 09:00 Quetiapine Fumarate (SEROquel) 100 mg BID PO Last administered on 07/09/16 08: 14; Start 07/05/16 at 09:00; Stop 07/09/16 at 15:41; Status DC Rivastigmine Tartrate (Exelon) 1.5 mg BID PO Last administered on 07/07/16 19: 24; Start 07/05/16 at 09:00; Stop 07/08/16 at 11:41; Status DC Trazodone HCl (Desyrel) 25 mg QHS PO Last administered on 07/14/16 20:42; Start 07/05/16 at 21:00 Acetaminophen (Tylenol) 650 mg PRN TID PRN PO PAIN / TEMP Last administered on 07/10/16 19:51; Start 07/05/16 at 07:15 Cephalexin HCl (Keflex) 500 mg TID PO Last administered on 07/07/16 08:47; Start 07/05/16 at 09:00; Stop 07/07/16 at 12:32; Status DC Vitamin D (Vitamin D3) 1,000 unit DAILY PO Last administered on 07/15/16 08:06 ; Start 07/05/16 at 09:00 Docusate Sodium (Colace) 100 mg DAILY PO Last administered on 07/15/16 08:03; Start 07/05/16 at 09:00 Guaifenesin (Robitussin) 200 mg PRN Q8HRS PRN PO COUGH; Start 07/05/16 at 07:15 Latanoprost (Xalatan) 1 drop QHS OU Last administered on 07/14/16 20:42; Start 07/05/16 at 21:00 Oxybutynin Chloride (Ditropan) 2.5 mg PRN BID PRN PO BLADDER SPASM; Start 07/05 at 07:15 Cyclobenzaprine HCl (Flexeril) 5 mg PRN TID PRN PO MUSCLE SPASMS; Start at 07:30 Magnesium Oxide (Magnesium Oxide) 400 mg DAILY PO Last administered on 08:03; Start 07/05/16 at 11:00 Prenat Multivit/ Sustainability Specialist/Iron/Folic Ac (Multivitamin ) 1 tab DAILYBFRLUN PO Last administered on 07/14/16 12:06; Start 07/06/16 at 11:30 Rivastigmine Tartrate (Exelon) 1.5 mg DAILY08 PO Last administered on 07/15/16 08:03; Start 07/09/16 at 08:00 Rivastigmine Tartrate (Exelon) 3 mg HS PO Last administered on 07/14/16 20:41; Start 07/08/16 at 21:00 Duloxetine HCl (Cymbalta) 20 mg DAILY PO Last administered on 07/15/16 08:03; Start 07/09/16 at 09:00 Quetiapine Fumarate (SEROquel) 50 mg QID PO Last administered on 07/15/16 08:05 ; Start 07/09/16 at 17:00 Divalproex Sodium (Depakote Sprinkles) 250 mg TID PO Last administered on 08:03; Start 07/10/16 at 21:00 Olanzapine (Zyprexa Zydis) 2.5 mg PRN Q2HR PRN PO ANXIETY / AGITATION Last administered on 07/11/16 14:55; Start 07/11/16 at 15:00 Active Scripts Active Reported Keflex (Cephalexin) 500 Mg Capsule 500 Mg PO TID Cyclobenzaprine Hcl 5 Mg Tablet 5 Mg PO PRN TID PRN Haloperidol 1 Mg Tablet 1 Mg PO PRN Q4HRS PRN Robafen (Guaifenesin) 100 Mg/5 Ml Liquid 10 Ml PO PRN Q8HRS PRN Trazodone Hcl 50 Mg Tablet 25 Mg PO QHS Latanoprost 2.5 Ml Drops 1 Drop OU QHS Donepezil Hcl 5 Mg Tablet 5 Mg PO DAILY Quetiapine Fumarate 100 Mg Tablet 100 Mg PO BID Rivastigmine (Rivastigmine Tartrate) 1.5 Mg Capsule 1.5 Mg PO BID Colace (Docusate Sodium) 100 Mg Capsule 100 Mg PO DAILY Depakote Sprinkle (Divalproex Sodium) 125 Mg Cap.sprink 125 Mg PO QID Give with food. Do Not Crush or chew lpellets. Hazardous Medication: Dispose of unused medication and packaging in proper container. Provera (Medroxyprogesterone Acetate) 2.5 Mg Tablet 5 Mg PO DAILY Tylenol (Acetaminophen) 325 Mg Tablet 650 Mg PO PRN TID PRN Not to exceed 3 grams per day Vitamin D3 (Cholecalciferol (Vitamin D3)) 1,000 Unit Tablet 1,000 Unit PO DAILY Oxybutynin Chloride 5 Mg Tablet 2.5 Mg PO PRN BID PRN Diagnosis: Problems: (1) Dementia SAPPHIRE MATTHEW MD Jul 15, 2016 08:33
[2016-07-15] MEDS: OLANZAPINE ZYDIS 5 MG TAB.RAPDIS PO PRN (10:35)
[2016-07-15] MEDS: PRENATAL MULTIVITAMIN TABLET. PO SCH (13:10)
[2016-07-15 15:32] VITALS: BP 137/65
[2016-07-15] MEDS: traZODone 50 MG TABLET. PO SCH (19:51)
[2016-07-15] MEDS: RIVASTIGMINE 3 MG CAPSULE. PO SCH (19:51)
[2016-07-15] MEDS: LATANOPROST 0.005% OPHTH SOLUTION 2.5ML BOTTLE. OU SCH (19:53)
[2016-07-16 06:18] VITALS: BP 161/76
[2016-07-16] MEDS: DONEPEZIL HCL 5 MG TABLET. PO SCH (08:17)
[2016-07-16] MEDS: DOCUSATE SODIUM 100 MG CAPSULE PO SCH (08:17)
[2016-07-16] MEDS: DULOXETINE HCL 20 MG CAPSULE.DR PO SCH (08:17)
[2016-07-16] MEDS: RIVASTIGMINE. 1.5 MG CAPSULE. PO SCH (08:17)
[2016-07-16] MEDS: MAGNESIUM OXIDE 400 MG TABLET PO SCH (08:18)
[2016-07-16] MEDS: DIVALPROEX 125 MG CAP.SPRINK PO SCH ×2 (08:18→17:04)
[2016-07-16] MEDS: MEDROXYPROGESTERONE 2.5 MG PO SCH (08:18)
[2016-07-16] MEDS: CHOLECALCIFEROL (VITAMIN D3) 1,000 UNIT TABLET PO SCH (08:19)
[2016-07-16] MEDS: QUEtiapine 50 MG TABLET. PO SCH ×4 (08:19→20:18)
[2016-07-16] MEDS: PRENATAL MULTIVITAMIN TABLET. PO SCH (12:53)
[2016-07-16 16:19] VITALS: BP 154/84
--- NOTE | 2016-07-16 20:00 | PDOC ---
Exam Scar Demential Exam: Scar Note: Please also refer to the separate dictated note~for this date of service dictated separately.~Patient seen individually. Discussed the patient with Nursing staff reviewed the chart.~Reviewed interim history and current functioning. Reviewed vital signs,~Labs/ Radiology~and current medications noted below. Continue current treatment with the changes noted in the dictated addendum note Assessment: Vital Signs: Vital Signs Date Time Temp Pulse Resp B/P Pulse Ox O2 Delivery O2 Flow Rate FiO2 07/16/16 16:19 97.5 64 16 154/84 95 07/11/16 06:00 Room Air I&O Intake and Output 07/16/16 07:00 Intake Total 720 ml Balance 720 ml Intake Oral 720 ml Current Medications: Meds: Current Medications Acetaminophen (Tylenol) 650 mg PRN Q6HRS PRN PO PAIN / TEMP; Start 07/04/16 at 23:00; Stop 07/05/16 at 07:21; Status DC Multi-Ingredient Ointment (Analgesic [place]) 1 martir PRN QID PRN TP MUSCLE PAIN; Start 07/04/16 at 23:00 Al Hydroxide/Mg Hydroxide (Mylanta Plus Xs) 15 ml PRN AFTMEALHC PRN PO DYSPEPSIA; Start 07/04/16 at 23:00 Magnesium Hydroxide (Milk Of Magnesia) 2,400 mg PRN QHS PRN PO CONSTIPATION; Start 07/04/16 at 23:00 Divalproex Sodium (Depakote Sprinkles) 125 mg QID PO Last administered on 17:06; Start 07/05/16 at 09:00; Stop 07/10/16 at 17:21; Status DC Donepezil HCl (Aricept) 5 mg DAILY PO Last administered on 07/16/16 08:17; Start 07/05/16 at 09:00 Haloperidol (Haldol) 1 mg PRN Q4HRS PRN PO AGITATION Last administered on 11:40; Start 07/05/16 at 00:30; Stop 07/11/16 at 14:51; Status DC Medroxyprogesterone Acetate (Provera) 5 mg DAILY PO Last administered on 08:18; Start 07/05/16 at 09:00 Quetiapine Fumarate (SEROquel) 100 mg BID PO Last administered on 07/09/16 08: 14; Start 07/05/16 at 09:00; Stop 07/09/16 at 15:41; Status DC Rivastigmine Tartrate (Exelon) 1.5 mg BID PO Last administered on 07/07/16 19: 24; Start 07/05/16 at 09:00; Stop 07/08/16 at 11:41; Status DC Trazodone HCl (Desyrel) 25 mg QHS PO Last administered on 07/15/16 19:51; Start 07/05/16 at 21:00 Acetaminophen (Tylenol) 650 mg PRN TID PRN PO PAIN / TEMP Last administered on 07/10/16 19:51; Start 07/05/16 at 07:15 Cephalexin HCl (Keflex) 500 mg TID PO Last administered on 07/07/16 08:47; Start 07/05/16 at 09:00; Stop 07/07/16 at 12:32; Status DC Vitamin D (Vitamin D3) 1,000 unit DAILY PO Last administered on 07/16/16 08:19 ; Start 07/05/16 at 09:00 Docusate Sodium (Colace) 100 mg DAILY PO Last administered on 07/16/16 08:17; Start 07/05/16 at 09:00 Guaifenesin (Robitussin) 200 mg PRN Q8HRS PRN PO COUGH; Start 07/05/16 at 07:15 Latanoprost (Xalatan) 1 drop QHS OU Last administered on 07/15/16 19:53; Start 07/05/16 at 21:00 Oxybutynin Chloride (Ditropan) 2.5 mg PRN BID PRN PO BLADDER SPASM; Start 07/05 at 07:15 Cyclobenzaprine HCl (Flexeril) 5 mg PRN TID PRN PO MUSCLE SPASMS; Start at 07:30 Magnesium Oxide (Magnesium Oxide) 400 mg DAILY PO Last administered on 08:18; Start 07/05/16 at 11:00 Prenat Multivit/ [place]/Iron/Folic Ac (Multivitamin ) 1 tab DAILYBFRLUN PO Last administered on 07/16/16 12:53; Start 07/06/16 at 11:30 Rivastigmine Tartrate (Exelon) 1.5 mg DAILY08 PO Last administered on 07/16/16 08:17; Start 07/09/16 at 08:00 Rivastigmine Tartrate (Exelon) 3 mg HS PO Last administered on 07/15/16 19:51; Start 07/08/16 at 21:00 Duloxetine HCl (Cymbalta) 20 mg DAILY PO Last administered on 07/16/16 08:17; Start 07/09/16 at 09:00 Quetiapine Fumarate (SEROquel) 50 mg QID PO Last administered on 07/16/16 17:04 ; Start 07/09/16 at 17:00 Divalproex Sodium (Depakote Sprinkles) 250 mg TID PO Last administered on 13:10; Start 07/10/16 at 21:00; Stop 07/15/16 at 18:32; Status DC Olanzapine (Zyprexa Zydis) 2.5 mg PRN Q2HR PRN PO ANXIETY / AGITATION Last administered on 07/15/16 10:35; Start 07/11/16 at 15:00 Divalproex Sodium (Depakote Sprinkles) 375 mg DAILY PO Last administered on 07/16 08:18; Start 07/16/16 at 09:00 Divalproex Sodium (Depakote Sprinkles) 500 mg DAILY16 PO Last administered on 17:04; Start 07/16/16 at 16:00 Active Scripts Active Reported Keflex (Cephalexin) 500 Mg Capsule 500 Mg PO TID Cyclobenzaprine Hcl 5 Mg Tablet 5 Mg PO PRN TID PRN Haloperidol 1 Mg Tablet 1 Mg PO PRN Q4HRS PRN Robafen (Guaifenesin) 100 Mg/5 Ml Liquid 10 Ml PO PRN Q8HRS PRN Trazodone Hcl 50 Mg Tablet 25 Mg PO QHS Latanoprost 2.5 Ml Drops 1 Drop OU QHS Donepezil Hcl 5 Mg Tablet 5 Mg PO DAILY Quetiapine Fumarate 100 Mg Tablet 100 Mg PO BID Rivastigmine (Rivastigmine Tartrate) 1.5 Mg Capsule 1.5 Mg PO BID Colace (Docusate Sodium) 100 Mg Capsule 100 Mg PO DAILY Depakote Sprinkle (Divalproex Sodium) 125 Mg Cap.sprink 125 Mg PO QID Give with food. Do Not Crush or chew lpellets. Hazardous Medication: Dispose of unused medication and packaging in proper container. Provera (Medroxyprogesterone Acetate) 2.5 Mg Tablet 5 Mg PO DAILY Tylenol (Acetaminophen) 325 Mg Tablet 650 Mg PO PRN TID PRN Not to exceed 3 grams per day Vitamin D3 (Cholecalciferol (Vitamin D3)) 1,000 Unit Tablet 1,000 Unit PO DAILY Oxybutynin Chloride 5 Mg Tablet 2.5 Mg PO PRN BID PRN Diagnosis: Problems: (1) Dementia SAPPHIRE MATTHEW MD Jul 16, 2016 20:00
[2016-07-16] MEDS: RIVASTIGMINE 3 MG CAPSULE. PO SCH (20:18)
[2016-07-16] MEDS: traZODone 50 MG TABLET. PO SCH (20:20)
[2016-07-16] MEDS: LATANOPROST 0.005% OPHTH SOLUTION 2.5ML BOTTLE. OU SCH (20:22)
--- NOTE | 2016-07-17 03:28 | PN ---
DATE: 07/14/2016 PSYCHIATRIC PROGRESS NOTE This is a late entry for 07/14/2016, covers elements not covered in my initial note. SUBJECTIVE: Per nursing report, the patient remains withdrawn, spends much time in his room, but has not been aggressive. He gets a little anxious at times, but redirects. REVIEW OF SYSTEMS: Ambulation impaired. I met with him in his room. He is lying in bed. No CV, , pulmonary, eye system symptoms on review. MENTAL STATUS EXAM: Oriented to himself and situation. Speech coherent, has some latency, low in volume. Abstraction fair, computation impaired, language function intact, attention span short. Mood and affect somewhat withdrawn. LABORATORY DATA: Reviewed. IMPRESSION: Unchanged from initial note. PLAN: Continue current psychotropics. Adjust further as clinically indicated. MAN Tory MATTHEW MD DR: AR/becky JOB#: [id number] / [id number]
--- NOTE | 2016-07-17 03:46 | PN ---
DATE: 07/15/2016 PSYCHIATRIC PROGRESS NOTE This is a late entry for 07/15/2016, covers elements not covered in my initial note. SUBJECTIVE: The patient was agitated with another demented patient entering his room. When staff intervened he was kicking at the [employer], agitated. REVIEW OF SYSTEMS: No CV, , pulmonary, eye system symptoms on review. Ambulation impaired, in his wheelchair, met with him in his room. MENTAL STATUS EXAM: Oriented to himself and situation. Speech has some latency, low in volume, coherent, abstraction fair, computation impaired, language function intact, attention span short. Mood and affect somewhat withdrawn at times. Other times, labile. LABORATORY DATA: Reviewed. Valproic acid level subtherapeutic at 46. IMPRESSION: Unchanged from initial note. PLAN: Increase Depakote from 250 mg t.i.d. to 375 mg in the morning and 500 mg at night. Check labs level in 3 days to reach a therapeutic level. Continue trazodone, Exelon, Seroquel, Provera, Aricept along with Cymbalta 20 mg a day, Zyprexa p.r.n. Adjust further as clinically indicated. SAPPHIRE MATTHEW MD DR: AR/becky JOB#: [id number] / [id number]
[2016-07-17 05:50] VITALS: BP 165/87
[2016-07-17] MEDS: MAGNESIUM OXIDE 400 MG TABLET PO SCH (08:57)
[2016-07-17] MEDS: QUEtiapine 50 MG TABLET. PO SCH ×4 (08:57→19:10)
[2016-07-17] MEDS: MEDROXYPROGESTERONE 2.5 MG PO SCH (08:57)
[2016-07-17] MEDS: CHOLECALCIFEROL (VITAMIN D3) 1,000 UNIT TABLET PO SCH (08:58)
[2016-07-17] MEDS: DIVALPROEX 125 MG CAP.SPRINK PO SCH ×2 (08:58→17:26)
[2016-07-17] MEDS: DONEPEZIL HCL 5 MG TABLET. PO SCH (08:58)
[2016-07-17] MEDS: DOCUSATE SODIUM 100 MG CAPSULE PO SCH (08:58)
[2016-07-17] MEDS: DULOXETINE HCL 20 MG CAPSULE.DR PO SCH (08:58)
[2016-07-17] MEDS: RIVASTIGMINE. 1.5 MG CAPSULE. PO SCH (08:58)
[2016-07-17] MEDS: PRENATAL MULTIVITAMIN TABLET. PO SCH (12:17)
[2016-07-17 15:46] VITALS: BP 131/74
[2016-07-17] MEDS: traZODone 50 MG TABLET. PO SCH (19:10)
[2016-07-17] MEDS: RIVASTIGMINE 3 MG CAPSULE. PO SCH (19:10)
[2016-07-17] MEDS: LATANOPROST 0.005% OPHTH SOLUTION 2.5ML BOTTLE. OU SCH (19:13)
--- NOTE | 2016-07-17 20:03 | PDOC ---
Exam Scar Demential Exam: Scar Note: Please also refer to the separate dictated note~for this date of service dictated separately.~Patient seen individually. Discussed the patient with Nursing staff reviewed the chart.~Reviewed interim history and current functioning. Reviewed vital signs,~Labs/ Radiology~and current medications noted below. Continue current treatment with the changes noted in the dictated addendum note Assessment: Vital Signs: Vital Signs Date Time Temp Pulse Resp B/P Pulse Ox O2 Delivery O2 Flow Rate FiO2 07/17/16 15:46 97.8 75 20 131/74 96 I&O Intake and Output 07/17/16 07:00 Intake Total 960 ml Balance 960 ml Intake Oral 960 ml Current Medications: Meds: Current Medications Acetaminophen (Tylenol) 650 mg PRN Q6HRS PRN PO PAIN / TEMP; Start 07/04/16 at 23:00; Stop 07/05/16 at 07:21; Status DC Multi-Ingredient Ointment (Analgesic [place]) 1 martir PRN QID PRN TP MUSCLE PAIN; Start 07/04/16 at 23:00 Al Hydroxide/Mg Hydroxide (Mylanta Plus Xs) 15 ml PRN AFTMEALHC PRN PO DYSPEPSIA; Start 07/04/16 at 23:00 Magnesium Hydroxide (Milk Of Magnesia) 2,400 mg PRN QHS PRN PO CONSTIPATION; Start 07/04/16 at 23:00 Divalproex Sodium (Depakote Sprinkles) 125 mg QID PO Last administered on 17:06; Start 07/05/16 at 09:00; Stop 07/10/16 at 17:21; Status DC Donepezil HCl (Aricept) 5 mg DAILY PO Last administered on 07/17/16 08:58; Start 07/05/16 at 09:00 Haloperidol (Haldol) 1 mg PRN Q4HRS PRN PO AGITATION Last administered on 11:40; Start 07/05/16 at 00:30; Stop 07/11/16 at 14:51; Status DC Medroxyprogesterone Acetate (Provera) 5 mg DAILY PO Last administered on 08:57; Start 07/05/16 at 09:00 Quetiapine Fumarate (SEROquel) 100 mg BID PO Last administered on 07/09/16 08: 14; Start 07/05/16 at 09:00; Stop 07/09/16 at 15:41; Status DC Rivastigmine Tartrate (Exelon) 1.5 mg BID PO Last administered on 07/07/16 19: 24; Start 07/05/16 at 09:00; Stop 07/08/16 at 11:41; Status DC Trazodone HCl (Desyrel) 25 mg QHS PO Last administered on 07/17/16 19:10; Start 07/05/16 at 21:00 Acetaminophen (Tylenol) 650 mg PRN TID PRN PO PAIN / TEMP Last administered on 07/10/16 19:51; Start 07/05/16 at 07:15 Cephalexin HCl (Keflex) 500 mg TID PO Last administered on 07/07/16 08:47; Start 07/05/16 at 09:00; Stop 07/07/16 at 12:32; Status DC Vitamin D (Vitamin D3) 1,000 unit DAILY PO Last administered on 07/17/16 08:58 ; Start 07/05/16 at 09:00 Docusate Sodium (Colace) 100 mg DAILY PO Last administered on 07/17/16 08:58; Start 07/05/16 at 09:00 Guaifenesin (Robitussin) 200 mg PRN Q8HRS PRN PO COUGH; Start 07/05/16 at 07:15 Latanoprost (Xalatan) 1 drop QHS OU Last administered on 07/17/16 19:13; Start 07/05/16 at 21:00 Oxybutynin Chloride (Ditropan) 2.5 mg PRN BID PRN PO BLADDER SPASM; Start 07/05 at 07:15 Cyclobenzaprine HCl (Flexeril) 5 mg PRN TID PRN PO MUSCLE SPASMS; Start at 07:30 Magnesium Oxide (Magnesium Oxide) 400 mg DAILY PO Last administered on 08:57; Start 07/05/16 at 11:00 Prenat Multivit/ [place]/Iron/Folic Ac (Multivitamin ) 1 tab DAILYBFRLUN PO Last administered on 07/17/16 12:17; Start 07/06/16 at 11:30 Rivastigmine Tartrate (Exelon) 1.5 mg DAILY08 PO Last administered on 07/17/16 08:58; Start 07/09/16 at 08:00 Rivastigmine Tartrate (Exelon) 3 mg HS PO Last administered on 07/17/16 19:10; Start 07/08/16 at 21:00 Duloxetine HCl (Cymbalta) 20 mg DAILY PO Last administered on 07/17/16 08:58; Start 07/09/16 at 09:00 Quetiapine Fumarate (SEROquel) 50 mg QID PO Last administered on 07/17/16 19:10 ; Start 07/09/16 at 17:00 Divalproex Sodium (Depakote Sprinkles) 250 mg TID PO Last administered on 13:10; Start 07/10/16 at 21:00; Stop 07/15/16 at 18:32; Status DC Olanzapine (Zyprexa Zydis) 2.5 mg PRN Q2HR PRN PO ANXIETY / AGITATION Last administered on 07/15/16 10:35; Start 07/11/16 at 15:00 Divalproex Sodium (Depakote Sprinkles) 375 mg DAILY PO Last administered on 07/17 08:58; Start 07/16/16 at 09:00 Divalproex Sodium (Depakote Sprinkles) 500 mg DAILY16 PO Last administered on 17:26; Start 07/16/16 at 16:00 Active Scripts Active Reported Keflex (Cephalexin) 500 Mg Capsule 500 Mg PO TID Cyclobenzaprine Hcl 5 Mg Tablet 5 Mg PO PRN TID PRN Haloperidol 1 Mg Tablet 1 Mg PO PRN Q4HRS PRN Robafen (Guaifenesin) 100 Mg/5 Ml Liquid 10 Ml PO PRN Q8HRS PRN Trazodone Hcl 50 Mg Tablet 25 Mg PO QHS Latanoprost 2.5 Ml Drops 1 Drop OU QHS Donepezil Hcl 5 Mg Tablet 5 Mg PO DAILY Quetiapine Fumarate 100 Mg Tablet 100 Mg PO BID Rivastigmine (Rivastigmine Tartrate) 1.5 Mg Capsule 1.5 Mg PO BID Colace (Docusate Sodium) 100 Mg Capsule 100 Mg PO DAILY Depakote Sprinkle (Divalproex Sodium) 125 Mg Cap.sprink 125 Mg PO QID Give with food. Do Not Crush or chew lpellets. Hazardous Medication: Dispose of unused medication and packaging in proper container. Provera (Medroxyprogesterone Acetate) 2.5 Mg Tablet 5 Mg PO DAILY Tylenol (Acetaminophen) 325 Mg Tablet 650 Mg PO PRN TID PRN Not to exceed 3 grams per day Vitamin D3 (Cholecalciferol (Vitamin D3)) 1,000 Unit Tablet 1,000 Unit PO DAILY Oxybutynin Chloride 5 Mg Tablet 2.5 Mg PO PRN BID PRN Diagnosis: Problems: (1) Dementia SAPPHIRE MATTHEW MD Jul 17, 2016 20:03
--- NOTE | 2016-07-18 02:28 | PN ---
DATE: 07/16/2016 This is a late entry for 07/16/2016, covers elements not covered in my initial note. SUBJECTIVE: Per nursing report, the patient takes his medications . He often stays in bed between meals, not aggressive on 07/16/2016 as he was for a couple of days before that. I met with him at length in his room. REVIEW OF SYSTEMS: Ambulation impaired. No CV, , pulmonary, eye, ENT system symptoms on review. MENTAL STATUS EXAM: Oriented to himself. Insight, judgment, recent memory is impaired. Language function intact. Attention span short. Mood and affect is improved. IMPRESSION: Unchanged. PLAN: Continue current psychotropics, trazodone, Exelon, Seroquel, Provera, Aricept, Depakote, Zyprexa p.r.n., Cymbalta 20 mg a day. Valproic acid level 46, follow labs level, adjust as indicated. SAPPHIRE MATTHEW MD DR: AR/becky JOB#: [id number] / [id number]
[2016-07-18 06:06] VITALS: BP 152/82
--- NOTE | 2016-07-18 08:00 | PDOC ---
Exam Scar Demential Exam: Scar Note: Please also refer to the separate dictated note~for this date of service dictated separately.~Patient seen individually. Discussed the patient with Nursing staff reviewed the chart.~Reviewed interim history and current functioning. Reviewed vital signs,~Labs/ Radiology~and current medications noted below. Continue current treatment with the changes noted in the dictated addendum note Assessment: Vital Signs: Vital Signs Date Time Temp Pulse Resp B/P Pulse Ox O2 Delivery O2 Flow Rate FiO2 07/18/16 06:06 98.2 78 20 152/82 97 I&O Intake and Output 07/18/16 07:00 Intake Total 660 ml Balance 660 ml Intake Oral 660 ml Current Medications: Meds: Current Medications Acetaminophen (Tylenol) 650 mg PRN Q6HRS PRN PO PAIN / TEMP; Start 07/04/16 at 23:00; Stop 07/05/16 at 07:21; Status DC Multi-Ingredient Ointment (Analgesic [place]) 1 martir PRN QID PRN TP MUSCLE PAIN; Start 07/04/16 at 23:00 Al Hydroxide/Mg Hydroxide (Mylanta Plus Xs) 15 ml PRN AFTMEALHC PRN PO DYSPEPSIA; Start 07/04/16 at 23:00 Magnesium Hydroxide (Milk Of Magnesia) 2,400 mg PRN QHS PRN PO CONSTIPATION; Start 07/04/16 at 23:00 Divalproex Sodium (Depakote Sprinkles) 125 mg QID PO Last administered on 17:06; Start 07/05/16 at 09:00; Stop 07/10/16 at 17:21; Status DC Donepezil HCl (Aricept) 5 mg DAILY PO Last administered on 07/17/16 08:58; Start 07/05/16 at 09:00 Haloperidol (Haldol) 1 mg PRN Q4HRS PRN PO AGITATION Last administered on 11:40; Start 07/05/16 at 00:30; Stop 07/11/16 at 14:51; Status DC Medroxyprogesterone Acetate (Provera) 5 mg DAILY PO Last administered on 08:57; Start 07/05/16 at 09:00 Quetiapine Fumarate (SEROquel) 100 mg BID PO Last administered on 07/09/16 08: 14; Start 07/05/16 at 09:00; Stop 07/09/16 at 15:41; Status DC Rivastigmine Tartrate (Exelon) 1.5 mg BID PO Last administered on 07/07/16 19: 24; Start 07/05/16 at 09:00; Stop 07/08/16 at 11:41; Status DC Trazodone HCl (Desyrel) 25 mg QHS PO Last administered on 07/17/16 19:10; Start 07/05/16 at 21:00 Acetaminophen (Tylenol) 650 mg PRN TID PRN PO PAIN / TEMP Last administered on 07/10/16 19:51; Start 07/05/16 at 07:15 Cephalexin HCl (Keflex) 500 mg TID PO Last administered on 07/07/16 08:47; Start 07/05/16 at 09:00; Stop 07/07/16 at 12:32; Status DC Vitamin D (Vitamin D3) 1,000 unit DAILY PO Last administered on 07/17/16 08:58 ; Start 07/05/16 at 09:00 Docusate Sodium (Colace) 100 mg DAILY PO Last administered on 07/17/16 08:58; Start 07/05/16 at 09:00 Guaifenesin (Robitussin) 200 mg PRN Q8HRS PRN PO COUGH; Start 07/05/16 at 07:15 Latanoprost (Xalatan) 1 drop QHS OU Last administered on 07/17/16 19:13; Start 07/05/16 at 21:00 Oxybutynin Chloride (Ditropan) 2.5 mg PRN BID PRN PO BLADDER SPASM; Start 07/05 at 07:15 Cyclobenzaprine HCl (Flexeril) 5 mg PRN TID PRN PO MUSCLE SPASMS; Start at 07:30 Magnesium Oxide (Magnesium Oxide) 400 mg DAILY PO Last administered on 08:57; Start 07/05/16 at 11:00 Prenat Multivit/ [place]/Iron/Folic Ac (Multivitamin ) 1 tab DAILYBFRLUN PO Last administered on 07/17/16 12:17; Start 07/06/16 at 11:30 Rivastigmine Tartrate (Exelon) 1.5 mg DAILY08 PO Last administered on 07/17/16 08:58; Start 07/09/16 at 08:00 Rivastigmine Tartrate (Exelon) 3 mg HS PO Last administered on 07/17/16 19:10; Start 07/08/16 at 21:00 Duloxetine HCl (Cymbalta) 20 mg DAILY PO Last administered on 07/17/16 08:58; Start 07/09/16 at 09:00 Quetiapine Fumarate (SEROquel) 50 mg QID PO Last administered on 07/17/16 19:10 ; Start 07/09/16 at 17:00 Divalproex Sodium (Depakote Sprinkles) 250 mg TID PO Last administered on 13:10; Start 07/10/16 at 21:00; Stop 07/15/16 at 18:32; Status DC Olanzapine (Zyprexa Zydis) 2.5 mg PRN Q2HR PRN PO ANXIETY / AGITATION Last administered on 07/15/16 10:35; Start 07/11/16 at 15:00 Divalproex Sodium (Depakote Sprinkles) 375 mg DAILY PO Last administered on 07/17 08:58; Start 07/16/16 at 09:00 Divalproex Sodium (Depakote Sprinkles) 500 mg DAILY16 PO Last administered on 17:26; Start 07/16/16 at 16:00 Active Scripts Active Reported Keflex (Cephalexin) 500 Mg Capsule 500 Mg PO TID Cyclobenzaprine Hcl 5 Mg Tablet 5 Mg PO PRN TID PRN Haloperidol 1 Mg Tablet 1 Mg PO PRN Q4HRS PRN Robafen (Guaifenesin) 100 Mg/5 Ml Liquid 10 Ml PO PRN Q8HRS PRN Trazodone Hcl 50 Mg Tablet 25 Mg PO QHS Latanoprost 2.5 Ml Drops 1 Drop OU QHS Donepezil Hcl 5 Mg Tablet 5 Mg PO DAILY Quetiapine Fumarate 100 Mg Tablet 100 Mg PO BID Rivastigmine (Rivastigmine Tartrate) 1.5 Mg Capsule 1.5 Mg PO BID Colace (Docusate Sodium) 100 Mg Capsule 100 Mg PO DAILY Depakote Sprinkle (Divalproex Sodium) 125 Mg Cap.sprink 125 Mg PO QID Give with food. Do Not Crush or chew lpellets. Hazardous Medication: Dispose of unused medication and packaging in proper container. Provera (Medroxyprogesterone Acetate) 2.5 Mg Tablet 5 Mg PO DAILY Tylenol (Acetaminophen) 325 Mg Tablet 650 Mg PO PRN TID PRN Not to exceed 3 grams per day Vitamin D3 (Cholecalciferol (Vitamin D3)) 1,000 Unit Tablet 1,000 Unit PO DAILY Oxybutynin Chloride 5 Mg Tablet 2.5 Mg PO PRN BID PRN Diagnosis: Problems: (1) Dementia SAPPHIRE MATTHEW MD Jul 18, 2016 08:00
[2016-07-18] MEDS: RIVASTIGMINE. 1.5 MG CAPSULE. PO SCH (08:02)
[2016-07-18] MEDS: QUEtiapine 50 MG TABLET. PO SCH ×4 (08:03→20:08)
[2016-07-18] MEDS: DIVALPROEX 125 MG CAP.SPRINK PO SCH ×2 (08:03→16:32)
[2016-07-18] MEDS: CHOLECALCIFEROL (VITAMIN D3) 1,000 UNIT TABLET PO SCH (08:03)
[2016-07-18] MEDS: MEDROXYPROGESTERONE 2.5 MG PO SCH (08:03)
[2016-07-18] MEDS: DONEPEZIL HCL 5 MG TABLET. PO SCH (08:03)
[2016-07-18] MEDS: DOCUSATE SODIUM 100 MG CAPSULE PO SCH (08:03)
[2016-07-18] MEDS: DULOXETINE HCL 20 MG CAPSULE.DR PO SCH (08:03)
[2016-07-18] MEDS: MAGNESIUM OXIDE 400 MG TABLET PO SCH (08:03)
[2016-07-18] MEDS: PRENATAL MULTIVITAMIN TABLET. PO SCH (11:48)
[2016-07-18 16:14] VITALS: BP 145/91
[2016-07-18] MEDS: traZODone 50 MG TABLET. PO SCH (20:08)
[2016-07-18] MEDS: RIVASTIGMINE 3 MG CAPSULE. PO SCH (20:08)
[2016-07-18] MEDS: LATANOPROST 0.005% OPHTH SOLUTION 2.5ML BOTTLE. OU SCH (20:09)
--- NOTE | 2016-07-18 21:31 | PN ---
DATE: 07/17/2016 This late entry for 07/17/2016 covers elements not covered in my initial note. SUBJECTIVE: Per nursing report, the patient has been calm. He took a nap after breakfast, played blackjack and did well at it during activity therapy. REVIEW OF SYSTEMS: I met with him in his room. Ambulation impaired. No CV, , pulmonary, eye system symptoms on review. MENTAL STATUS EXAM: The patient is oriented to himself and situation. Speech has some latency, low in volume, coherent, abstraction fair, computation impaired, language function intact, attention span short. Mood and affect still somewhat withdrawn. LABORATORY DATA: Reviewed. IMPRESSION: Major depressive disorder, recurrent major neurocognitive disorder, early Alzheimer, vascular with depression, behavioral disturbance; anxiety disorder, unspecified; impulse control disorder, unspecified. PLAN: Continue current psychotropics mentioned in my initial note. Adjust further as clinically indicated. Valproic acid level at last check was 46. We will repeat it. MAN Tory MATTHEW MD DR: AR/becky JOB#: [id number] / [id number]
[2016-07-19 05:54] VITALS: BP 157/82
[2016-07-19 06:16] LABS: BASO % 0 % (0-3); EOS # 0.2 x10^3/uL (0.0-0.7); EOS % 3 % (0-3); HEMATOCRIT 37.5 % (39.0-53.0); HEMOGLOBIN 12.2 g/dL (13.0-17.5); LYMPH # 2.8 x10^3/uL (1.0-4.8); LYMPH % 40 % (24-48); MEAN CORPUSCULAR HEMOGLOBIN 32 pg (25-35); MEAN CORPUSCULAR HGB CONC 33 g/dL (31-37); MEAN CORPUSCULAR VOLUME 97 fL (79-100); MONO # 0.4 x10^3/uL (0.0-1.1); MONO % 6 % (0-9); NEUT # 3.6 x10^3uL (1.8-7.7); NEUT % 50 % (31-73); PLATELET COUNT 235 x10^3/uL (140-400); RED BLOOD COUNT 3.88 x10^6/uL (4.30-5.70); RED CELL DISTRIBUTION WIDTH 13.8 % (11.5-14.5); WHITE BLOOD COUNT 7.1 x10^3/uL (4.0-11.0)
[2016-07-19 06:28] LABS: ALBUMIN 3.2 g/dL (3.4-5.0); ALBUMIN/GLOBULIN RATIO 0.8 (1.0-1.7); ALK PHOS 80 U/L (46-116); ALT (SGPT) 12 U/L (16-63); ANION GAP 4 (6-14); AST (SGOT) 10 U/L (15-37); BLOOD UREA NITROGEN 30 mg/dL (8-26); BUN/CREATININE RATIO 30 (6-20); CALCIUM 8.8 mg/dL (8.5-10.1); CARBON DIOXIDE 33 mmol/L (21-32); CHLORIDE 104 mmol/L (98-107); GFR 70.7; GLUCOSE 85 mg/dL (70-99); POTASSIUM 4.3 mmol/L (3.5-5.1); SODIUM 141 mmol/L (136-145); TOTAL BILIRUBIN 0.3 mg/dL (0.2-1.0)
[2016-07-19 06:29] LABS: VAL ACID 58 mcg/mL (50-100)
[2016-07-19] MEDS: RIVASTIGMINE. 1.5 MG CAPSULE. PO SCH (07:39)
[2016-07-19] MEDS: DULOXETINE HCL 20 MG CAPSULE.DR PO SCH (07:39)
[2016-07-19] MEDS: DONEPEZIL HCL 5 MG TABLET. PO SCH (07:40)
[2016-07-19] MEDS: DOCUSATE SODIUM 100 MG CAPSULE PO SCH (07:40)
[2016-07-19] MEDS: MEDROXYPROGESTERONE 2.5 MG PO SCH (07:40)
[2016-07-19] MEDS: DIVALPROEX 125 MG CAP.SPRINK PO SCH ×2 (07:40→16:30)
[2016-07-19] MEDS: MAGNESIUM OXIDE 400 MG TABLET PO SCH (07:40)
[2016-07-19] MEDS: CHOLECALCIFEROL (VITAMIN D3) 1,000 UNIT TABLET PO SCH (07:40)
[2016-07-19] MEDS: QUEtiapine 50 MG TABLET. PO SCH ×4 (07:40→19:39)
[2016-07-19] MEDS: OLANZAPINE ZYDIS 5 MG TAB.RAPDIS PO PRN (09:00)
[2016-07-19] MEDS: PRENATAL MULTIVITAMIN TABLET. PO SCH (12:24)
--- NOTE | 2016-07-19 13:49 | PN ---
DATE: 07/18/2016 This is a late entry for 07/18/2016, covers elements not covered in my initial note of 07/18/2016. SUBJECTIVE: Per nursing report, the patient has been fairly cooperative on the unit, gets a little irritable, labile at times, but redirects. REVIEW OF SYSTEMS: Ambulation impaired, in his wheelchair. No CV, , pulmonary, eye system symptoms on review. MENTAL STATUS EXAM: Oriented to himself and situation. Speech coherent, abstraction fair, computation impaired, language function intact. Mood and affect showing improvement, still labile, little paranoid at times. LABORATORY DATA: Reviewed. IMPRESSION: Unchanged from initial note. PLAN: Continue current psychotropics. Possible transition back to custodial after the weekend. MAN Tory MATTHEW MD DR: AR/becky JOB#: [id number] / [id number]
[2016-07-19 16:10] VITALS: BP 163/86
[2016-07-19] MEDS: traZODone 50 MG TABLET. PO SCH (19:38)
[2016-07-19] MEDS: LATANOPROST 0.005% OPHTH SOLUTION 2.5ML BOTTLE. OU SCH (19:39)
[2016-07-19] MEDS: RIVASTIGMINE 3 MG CAPSULE. PO SCH (19:39)
[2016-07-20 06:27] VITALS: BP 164/79
[2016-07-20] MEDS: DONEPEZIL HCL 5 MG TABLET. PO SCH (07:36)
[2016-07-20] MEDS: DOCUSATE SODIUM 100 MG CAPSULE PO SCH (07:36)
[2016-07-20] MEDS: CHOLECALCIFEROL (VITAMIN D3) 1,000 UNIT TABLET PO SCH (07:36)
[2016-07-20] MEDS: MAGNESIUM OXIDE 400 MG TABLET PO SCH (07:36)
[2016-07-20] MEDS: DULOXETINE HCL 20 MG CAPSULE.DR PO SCH (07:36)
[2016-07-20] MEDS: RIVASTIGMINE. 1.5 MG CAPSULE. PO SCH (07:36)
[2016-07-20] MEDS: QUEtiapine 50 MG TABLET. PO SCH ×4 (07:36→19:54)
[2016-07-20] MEDS: DIVALPROEX 125 MG CAP.SPRINK PO SCH ×2 (07:37→16:57)
[2016-07-20] MEDS: MEDROXYPROGESTERONE 2.5 MG PO SCH (07:37)
[2016-07-20] MEDS: OLANZAPINE ZYDIS 5 MG TAB.RAPDIS PO PRN ×2 (09:10→12:05)
[2016-07-20] MEDS: PRENATAL MULTIVITAMIN TABLET. PO SCH (11:59)
[2016-07-20 15:21] VITALS: BP 126/79
[2016-07-20] MEDS: traZODone 50 MG TABLET. PO SCH (19:54)
[2016-07-20] MEDS: RIVASTIGMINE 3 MG CAPSULE. PO SCH (19:54)
[2016-07-20] MEDS: LATANOPROST 0.005% OPHTH SOLUTION 2.5ML BOTTLE. OU SCH (19:55)
[2016-07-20] MEDS: busPIRone 5 MG TABLET. PO SCH (20:02)
--- NOTE | 2016-07-20 20:42 | PDOC ---
Exam Scar Demential Exam: Scar Note: Please also refer to the separate dictated note~for this date of service dictated separately.~Patient seen individually. Discussed the patient with Nursing staff reviewed the chart.~Reviewed interim history and current functioning. Reviewed vital signs,~Labs/ Radiology~and current medications noted below. Continue current treatment with the changes noted in the dictated addendum note Assessment: Vital Signs: Vital Signs Date Time Temp Pulse Resp B/P Pulse Ox O2 Delivery O2 Flow Rate FiO2 07/20/16 15:21 97.7 70 18 126/79 97 07/20/16 06:27 Room Air I&O Intake and Output 07/20/16 07:00 Intake Total 780 ml Balance 780 ml Intake Oral 780 ml # Bowel Movements 1 Current Medications: Meds: Current Medications Acetaminophen (Tylenol) 650 mg PRN Q6HRS PRN PO PAIN / TEMP; Start 07/04/16 at 23:00; Stop 07/05/16 at 07:21; Status DC Multi-Ingredient Ointment (Analgesic [place]) 1 martir PRN QID PRN TP MUSCLE PAIN; Start 07/04/16 at 23:00 Al Hydroxide/Mg Hydroxide (Mylanta Plus Xs) 15 ml PRN AFTMEALHC PRN PO DYSPEPSIA; Start 07/04/16 at 23:00 Magnesium Hydroxide (Milk Of Magnesia) 2,400 mg PRN QHS PRN PO CONSTIPATION; Start 07/04/16 at 23:00 Divalproex Sodium (Depakote Sprinkles) 125 mg QID PO Last administered on 17:06; Start 07/05/16 at 09:00; Stop 07/10/16 at 17:21; Status DC Donepezil HCl (Aricept) 5 mg DAILY PO Last administered on 07/20/16 07:36; Start 07/05/16 at 09:00 Haloperidol (Haldol) 1 mg PRN Q4HRS PRN PO AGITATION Last administered on 11:40; Start 07/05/16 at 00:30; Stop 07/11/16 at 14:51; Status DC Medroxyprogesterone Acetate (Provera) 5 mg DAILY PO Last administered on 07:37; Start 07/05/16 at 09:00 Quetiapine Fumarate (SEROquel) 100 mg BID PO Last administered on 07/09/16 08: 14; Start 07/05/16 at 09:00; Stop 07/09/16 at 15:41; Status DC Rivastigmine Tartrate (Exelon) 1.5 mg BID PO Last administered on 07/07/16 19: 24; Start 07/05/16 at 09:00; Stop 07/08/16 at 11:41; Status DC Trazodone HCl (Desyrel) 25 mg QHS PO Last administered on 07/20/16 19:54; Start 07/05/16 at 21:00 Acetaminophen (Tylenol) 650 mg PRN TID PRN PO PAIN / TEMP Last administered on 07/10/16 19:51; Start 07/05/16 at 07:15 Cephalexin HCl (Keflex) 500 mg TID PO Last administered on 07/07/16 08:47; Start 07/05/16 at 09:00; Stop 07/07/16 at 12:32; Status DC Vitamin D (Vitamin D3) 1,000 unit DAILY PO Last administered on 07/20/16 07:36 ; Start 07/05/16 at 09:00 Docusate Sodium (Colace) 100 mg DAILY PO Last administered on 07/20/16 07:36; Start 07/05/16 at 09:00 Guaifenesin (Robitussin) 200 mg PRN Q8HRS PRN PO COUGH; Start 07/05/16 at 07:15 Latanoprost (Xalatan) 1 drop QHS OU Last administered on 07/20/16 19:55; Start 07/05/16 at 21:00 Oxybutynin Chloride (Ditropan) 2.5 mg PRN BID PRN PO BLADDER SPASM; Start 07/05 at 07:15 Cyclobenzaprine HCl (Flexeril) 5 mg PRN TID PRN PO MUSCLE SPASMS; Start at 07:30 Magnesium Oxide (Magnesium Oxide) 400 mg DAILY PO Last administered on 07:36; Start 07/05/16 at 11:00 Prenat Multivit/ [place]/Iron/Folic Ac (Multivitamin ) 1 tab DAILYBFRLUN PO Last administered on 07/20/16 11:59; Start 07/06/16 at 11:30 Rivastigmine Tartrate (Exelon) 1.5 mg DAILY08 PO Last administered on 07:36; Start 07/09/16 at 08:00 Rivastigmine Tartrate (Exelon) 3 mg HS PO Last administered on 07/20/16 19:54 ; Start 07/08/16 at 21:00 Duloxetine HCl (Cymbalta) 20 mg DAILY PO Last administered on 07/20/16 07:36; Start 07/09/16 at 09:00 Quetiapine Fumarate (SEROquel) 50 mg QID PO Last administered on 07/20/16 19: 54; Start 07/09/16 at 17:00 Divalproex Sodium (Depakote Sprinkles) 250 mg TID PO Last administered on 13:10; Start 07/10/16 at 21:00; Stop 07/15/16 at 18:32; Status DC Olanzapine (Zyprexa Zydis) 2.5 mg PRN Q2HR PRN PO ANXIETY / AGITATION Last administered on 07/20/16 12:05; Start 07/11/16 at 15:00 Divalproex Sodium (Depakote Sprinkles) 375 mg DAILY PO Last administered on 07:37; Start 07/16/16 at 09:00 Divalproex Sodium (Depakote Sprinkles) 500 mg DAILY16 PO Last administered on 16:57; Start 07/16/16 at 16:00 Buspirone HCl (Buspar) 5 mg BID PO Last administered on 07/20/16 20:02; Start 07/20/16 at 21:00 Active Scripts Active Reported Keflex (Cephalexin) 500 Mg Capsule 500 Mg PO TID Cyclobenzaprine Hcl 5 Mg Tablet 5 Mg PO PRN TID PRN Haloperidol 1 Mg Tablet 1 Mg PO PRN Q4HRS PRN Robafen (Guaifenesin) 100 Mg/5 Ml Liquid 10 Ml PO PRN Q8HRS PRN Trazodone Hcl 50 Mg Tablet 25 Mg PO QHS Latanoprost 2.5 Ml Drops 1 Drop OU QHS Donepezil Hcl 5 Mg Tablet 5 Mg PO DAILY Quetiapine Fumarate 100 Mg Tablet 100 Mg PO BID Rivastigmine (Rivastigmine Tartrate) 1.5 Mg Capsule 1.5 Mg PO BID Colace (Docusate Sodium) 100 Mg Capsule 100 Mg PO DAILY Depakote Sprinkle (Divalproex Sodium) 125 Mg Cap.sprink 125 Mg PO QID Give with food. Do Not Crush or chew lpellets. Hazardous Medication: Dispose of unused medication and packaging in proper container. 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
[2016-07-21 05:38] VITALS: BP 156/77
[2016-07-21] MEDS: DONEPEZIL HCL 5 MG TABLET. PO SCH (07:59)
[2016-07-21] MEDS: MAGNESIUM OXIDE 400 MG TABLET PO SCH (07:59)
[2016-07-21] MEDS: busPIRone 5 MG TABLET. PO SCH ×2 (08:00→19:30)
[2016-07-21] MEDS: DIVALPROEX 125 MG CAP.SPRINK PO SCH ×2 (08:00→16:20)
[2016-07-21] MEDS: CHOLECALCIFEROL (VITAMIN D3) 1,000 UNIT TABLET PO SCH (08:00)
[2016-07-21] MEDS: MEDROXYPROGESTERONE 2.5 MG PO SCH (08:00)
[2016-07-21] MEDS: RIVASTIGMINE. 1.5 MG CAPSULE. PO SCH (08:00)
[2016-07-21] MEDS: DOCUSATE SODIUM 100 MG CAPSULE PO SCH (08:00)
[2016-07-21] MEDS: DULOXETINE HCL 20 MG CAPSULE.DR PO SCH (08:00)
[2016-07-21] MEDS: QUEtiapine 50 MG TABLET. PO SCH ×4 (08:13→19:30)
[2016-07-21] MEDS: PRENATAL MULTIVITAMIN TABLET. PO SCH (11:30)
[2016-07-21 15:17] VITALS: BP 114/69
--- NOTE | 2016-07-21 15:51 | PN ---
DATE: 07/19/2016 PSYCHIATRIC PROGRESS NOTE This is a late entry 07/19/2016, covers. SUBJECTIVE: The patient was seen on rounds the evening of 07/19/2016. Discussed with nursing staff, reviewed the chart. Temperature 97.5, BP 157/82, pulse 70. The patient was also staffed at a treatment team meeting with the entire team morning of 07/19/2016. The patient is sleeping about 8 hours. Appetite about 50%. Valproic acid level . The patient continues to have episodic agitation with staff. REVIEW OF SYSTEMS: Ambulation impaired. No CV, , pulmonary, eye system symptoms on review. MENTAL STATUS EXAM: Oriented to himself. Insight, judgment, recent memory is impaired. Language function intact. Attention span short. Mood and affect remain somewhat anxious, labile at times. LABORATORY DATA: Reviewed. IMPRESSION: Major depressive disorder, major neurocognitive disorder, Alzheimer, vascular with depression, delusions, impulse control disorder, unspecified; anxiety disorder, unspecified. PLAN: Continue Seroquel 50 mg 4 times a day, Exelon mg at bedtime, trazodone 25 at bedtime, Provera 5 mg a day, Aricept 5 mg a day, Depakote 375 mg a.m. and 500 at 4:00 p.m., Zyprexa p.r.n., Cymbalta 20 mg a day. Adjust further as clinically indicated. SAPPHIRE MATTHEW MD DR: AR/becky JOB#: [id number] / [id number]
--- NOTE | 2016-07-21 18:15 | PDOC ---
Exam Scar Demential Exam: Scar Note: Please also refer to the separate dictated note~for this date of service dictated separately.~Patient seen individually. Discussed the patient with Nursing staff reviewed the chart.~Reviewed interim history and current functioning. Reviewed vital signs,~Labs/ Radiology~and current medications noted below. Continue current treatment with the changes noted in the dictated addendum note Assessment: Vital Signs: Vital Signs Date Time Temp Pulse Resp B/P Pulse Ox O2 Delivery O2 Flow Rate FiO2 07/21/16 15:17 98.0 81 20 114/69 98 Room Air I&O Intake and Output 07/21/16 07:00 Intake Total 1040 ml Balance 1040 ml Intake Oral 1040 ml # Bowel Movements 1 Current Medications: Meds: Current Medications Acetaminophen (Tylenol) 650 mg PRN Q6HRS PRN PO PAIN / TEMP; Start 07/04/16 at 23:00; Stop 07/05/16 at 07:21; Status DC Multi-Ingredient Ointment (Analgesic [place]) 1 martir PRN QID PRN TP MUSCLE PAIN; Start 07/04/16 at 23:00 Al Hydroxide/Mg Hydroxide (Mylanta Plus Xs) 15 ml PRN AFTMEALHC PRN PO DYSPEPSIA; Start 07/04/16 at 23:00 Magnesium Hydroxide (Milk Of Magnesia) 2,400 mg PRN QHS PRN PO CONSTIPATION; Start 07/04/16 at 23:00 Divalproex Sodium (Depakote Sprinkles) 125 mg QID PO Last administered on 17:06; Start 07/05/16 at 09:00; Stop 07/10/16 at 17:21; Status DC Donepezil HCl (Aricept) 5 mg DAILY PO Last administered on 07/21/16 07:59; Start 07/05/16 at 09:00 Haloperidol (Haldol) 1 mg PRN Q4HRS PRN PO AGITATION Last administered on 11:40; Start 07/05/16 at 00:30; Stop 07/11/16 at 14:51; Status DC Medroxyprogesterone Acetate (Provera) 5 mg DAILY PO Last administered on 08:00; Start 07/05/16 at 09:00 Quetiapine Fumarate (SEROquel) 100 mg BID PO Last administered on 07/09/16 08: 14; Start 07/05/16 at 09:00; Stop 07/09/16 at 15:41; Status DC Rivastigmine Tartrate (Exelon) 1.5 mg BID PO Last administered on 07/07/16 19: 24; Start 07/05/16 at 09:00; Stop 07/08/16 at 11:41; Status DC Trazodone HCl (Desyrel) 25 mg QHS PO Last administered on 07/20/16 19:54; Start 07/05/16 at 21:00 Acetaminophen (Tylenol) 650 mg PRN TID PRN PO PAIN / TEMP Last administered on 07/10/16 19:51; Start 07/05/16 at 07:15 Cephalexin HCl (Keflex) 500 mg TID PO Last administered on 07/07/16 08:47; Start 07/05/16 at 09:00; Stop 07/07/16 at 12:32; Status DC Vitamin D (Vitamin D3) 1,000 unit DAILY PO Last administered on 07/21/16 08:00 ; Start 07/05/16 at 09:00 Docusate Sodium (Colace) 100 mg DAILY PO Last administered on 07/21/16 08:00; Start 07/05/16 at 09:00 Guaifenesin (Robitussin) 200 mg PRN Q8HRS PRN PO COUGH; Start 07/05/16 at 07:15 Latanoprost (Xalatan) 1 drop QHS OU Last administered on 07/20/16 19:55; Start 07/05/16 at 21:00 Oxybutynin Chloride (Ditropan) 2.5 mg PRN BID PRN PO BLADDER SPASM; Start 07/05 at 07:15 Cyclobenzaprine HCl (Flexeril) 5 mg PRN TID PRN PO MUSCLE SPASMS; Start at 07:30 Magnesium Oxide (Magnesium Oxide) 400 mg DAILY PO Last administered on 07:59; Start 07/05/16 at 11:00 Prenat Multivit/ Helicopter Engineer/Iron/Folic Ac (Multivitamin ) 1 tab DAILYBFRLUN PO Last administered on 07/21/16 11:30; Start 07/06/16 at 11:30 Rivastigmine Tartrate (Exelon) 1.5 mg DAILY08 PO Last administered on 08:00; Start 07/09/16 at 08:00 Rivastigmine Tartrate (Exelon) 3 mg HS PO Last administered on 07/20/16 19:54 ; Start 07/08/16 at 21:00 Duloxetine HCl (Cymbalta) 20 mg DAILY PO Last administered on 07/21/16 08:00; Start 07/09/16 at 09:00 Quetiapine Fumarate (SEROquel) 50 mg QID PO Last administered on 07/21/16 16: 20; Start 07/09/16 at 17:00 Divalproex Sodium (Depakote Sprinkles) 250 mg TID PO Last administered on 13:10; Start 07/10/16 at 21:00; Stop 07/15/16 at 18:32; Status DC Olanzapine (Zyprexa Zydis) 2.5 mg PRN Q2HR PRN PO ANXIETY / AGITATION Last administered on 07/20/16 12:05; Start 07/11/16 at 15:00 Divalproex Sodium (Depakote Sprinkles) 375 mg DAILY PO Last administered on 08:00; Start 07/16/16 at 09:00 Divalproex Sodium (Depakote Sprinkles) 500 mg DAILY16 PO Last administered on 16:20; Start 07/16/16 at 16:00 Buspirone HCl (Buspar) 5 mg BID PO Last administered on 07/21/16 08:00; Start 07/20/16 at 21:00 Active Scripts Active Reported Keflex (Cephalexin) 500 Mg Capsule 500 Mg PO TID Cyclobenzaprine Hcl 5 Mg Tablet 5 Mg PO PRN TID PRN Haloperidol 1 Mg Tablet 1 Mg PO PRN Q4HRS PRN Robafen (Guaifenesin) 100 Mg/5 Ml Liquid 10 Ml PO PRN Q8HRS PRN Trazodone Hcl 50 Mg Tablet 25 Mg PO QHS Latanoprost 2.5 Ml Drops 1 Drop OU QHS Donepezil Hcl 5 Mg Tablet 5 Mg PO DAILY Quetiapine Fumarate 100 Mg Tablet 100 Mg PO BID Rivastigmine (Rivastigmine Tartrate) 1.5 Mg Capsule 1.5 Mg PO BID Colace (Docusate Sodium) 100 Mg Capsule 100 Mg PO DAILY Depakote Sprinkle (Divalproex Sodium) 125 Mg Cap.sprink 125 Mg PO QID Give with food. Do Not Crush or chew lpellets. Hazardous Medication: Dispose of unused medication and packaging in proper container. 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
[2016-07-21] MEDS: LATANOPROST 0.005% OPHTH SOLUTION 2.5ML BOTTLE. OU SCH (19:30)
[2016-07-21] MEDS: traZODone 50 MG TABLET. PO SCH (19:30)
[2016-07-21] MEDS: RIVASTIGMINE 3 MG CAPSULE. PO SCH (19:30)
[2016-07-22 05:41] VITALS: BP 153/72
[2016-07-22] MEDS: DULOXETINE HCL 20 MG CAPSULE.DR PO SCH (08:20)
[2016-07-22] MEDS: MAGNESIUM OXIDE 400 MG TABLET PO SCH (08:20)
[2016-07-22] MEDS: DONEPEZIL HCL 5 MG TABLET. PO SCH (08:20)
[2016-07-22] MEDS: MEDROXYPROGESTERONE 2.5 MG PO SCH (08:20)
[2016-07-22] MEDS: RIVASTIGMINE. 1.5 MG CAPSULE. PO SCH (08:20)
[2016-07-22] MEDS: DOCUSATE SODIUM 100 MG CAPSULE PO SCH (08:20)
[2016-07-22] MEDS: CHOLECALCIFEROL (VITAMIN D3) 1,000 UNIT TABLET PO SCH (08:20)
[2016-07-22] MEDS: busPIRone 5 MG TABLET. PO SCH ×2 (08:21→19:31)
[2016-07-22] MEDS: DIVALPROEX 125 MG CAP.SPRINK PO SCH ×2 (08:21→16:16)
[2016-07-22] MEDS: QUEtiapine 50 MG TABLET. PO SCH ×4 (08:21→19:30)
--- NOTE | 2016-07-22 09:32 | PDOC ---
Exam Scar Demential Exam: Scar Note: Please also refer to the separate dictated note~for this date of service dictated separately.~Patient seen individually. Discussed the patient with Nursing staff reviewed the chart.~Reviewed interim history and current functioning. Reviewed vital signs,~Labs/ Radiology~and current medications noted below. Continue current treatment with the changes noted in the dictated addendum note Assessment: Vital Signs: Vital Signs Date Time Temp Pulse Resp B/P Pulse Ox O2 Delivery O2 Flow Rate FiO2 07/22/16 05:41 97.9 73 16 153/72 97 07/21/16 15:17 Room Air I&O Intake and Output 07/22/16 07:00 Intake Total 600 ml Balance 600 ml Intake Oral 600 ml # Voids 1 Current Medications: Meds: Current Medications Acetaminophen (Tylenol) 650 mg PRN Q6HRS PRN PO PAIN / TEMP; Start 07/04/16 at 23:00; Stop 07/05/16 at 07:21; Status DC Multi-Ingredient Ointment (Analgesic [place]) 1 martir PRN QID PRN TP MUSCLE PAIN; Start 07/04/16 at 23:00 Al Hydroxide/Mg Hydroxide (Mylanta Plus Xs) 15 ml PRN AFTMEALHC PRN PO DYSPEPSIA; Start 07/04/16 at 23:00 Magnesium Hydroxide (Milk Of Magnesia) 2,400 mg PRN QHS PRN PO CONSTIPATION; Start 07/04/16 at 23:00 Divalproex Sodium (Depakote Sprinkles) 125 mg QID PO Last administered on 17:06; Start 07/05/16 at 09:00; Stop 07/10/16 at 17:21; Status DC Donepezil HCl (Aricept) 5 mg DAILY PO Last administered on 07/22/16 08:20; Start 07/05/16 at 09:00 Haloperidol (Haldol) 1 mg PRN Q4HRS PRN PO AGITATION Last administered on 11:40; Start 07/05/16 at 00:30; Stop 07/11/16 at 14:51; Status DC Medroxyprogesterone Acetate (Provera) 5 mg DAILY PO Last administered on 08:20; Start 07/05/16 at 09:00 Quetiapine Fumarate (SEROquel) 100 mg BID PO Last administered on 07/09/16 08: 14; Start 07/05/16 at 09:00; Stop 07/09/16 at 15:41; Status DC Rivastigmine Tartrate (Exelon) 1.5 mg BID PO Last administered on 07/07/16 19: 24; Start 07/05/16 at 09:00; Stop 07/08/16 at 11:41; Status DC Trazodone HCl (Desyrel) 25 mg QHS PO Last administered on 07/21/16 19:30; Start 07/05/16 at 21:00 Acetaminophen (Tylenol) 650 mg PRN TID PRN PO PAIN / TEMP Last administered on 07/10/16 19:51; Start 07/05/16 at 07:15 Cephalexin HCl (Keflex) 500 mg TID PO Last administered on 07/07/16 08:47; Start 07/05/16 at 09:00; Stop 07/07/16 at 12:32; Status DC Vitamin D (Vitamin D3) 1,000 unit DAILY PO Last administered on 07/22/16 08:20 ; Start 07/05/16 at 09:00 Docusate Sodium (Colace) 100 mg DAILY PO Last administered on 07/22/16 08:20; Start 07/05/16 at 09:00 Guaifenesin (Robitussin) 200 mg PRN Q8HRS PRN PO COUGH; Start 07/05/16 at 07:15 Latanoprost (Xalatan) 1 drop QHS OU Last administered on 07/21/16 19:30; Start 07/05/16 at 21:00 Oxybutynin Chloride (Ditropan) 2.5 mg PRN BID PRN PO BLADDER SPASM; Start 07/05 at 07:15 Cyclobenzaprine HCl (Flexeril) 5 mg PRN TID PRN PO MUSCLE SPASMS; Start at 07:30 Magnesium Oxide (Magnesium Oxide) 400 mg DAILY PO Last administered on 08:20; Start 07/05/16 at 11:00 Prenat Multivit/ [place]/Iron/Folic Ac (Multivitamin ) 1 tab DAILYBFRLUN PO Last administered on 07/21/16 11:30; Start 07/06/16 at 11:30 Rivastigmine Tartrate (Exelon) 1.5 mg DAILY08 PO Last administered on 08:20; Start 07/09/16 at 08:00 Rivastigmine Tartrate (Exelon) 3 mg HS PO Last administered on 07/21/16 19:30 ; Start 07/08/16 at 21:00 Duloxetine HCl (Cymbalta) 20 mg DAILY PO Last administered on 07/22/16 08:20; Start 07/09/16 at 09:00 Quetiapine Fumarate (SEROquel) 50 mg QID PO Last administered on 07/22/16 08: 21; Start 07/09/16 at 17:00 Divalproex Sodium (Depakote Sprinkles) 250 mg TID PO Last administered on 13:10; Start 07/10/16 at 21:00; Stop 07/15/16 at 18:32; Status DC Olanzapine (Zyprexa Zydis) 2.5 mg PRN Q2HR PRN PO ANXIETY / AGITATION Last administered on 07/20/16 12:05; Start 07/11/16 at 15:00 Divalproex Sodium (Depakote Sprinkles) 375 mg DAILY PO Last administered on 08:21; Start 07/16/16 at 09:00 Divalproex Sodium (Depakote Sprinkles) 500 mg DAILY16 PO Last administered on 16:20; Start 07/16/16 at 16:00 Buspirone HCl (Buspar) 5 mg BID PO Last administered on 07/22/16 08:21; Start 07/20/16 at 21:00 Active Scripts Active Reported Keflex (Cephalexin) 500 Mg Capsule 500 Mg PO TID Cyclobenzaprine Hcl 5 Mg Tablet 5 Mg PO PRN TID PRN Haloperidol 1 Mg Tablet 1 Mg PO PRN Q4HRS PRN Robafen (Guaifenesin) 100 Mg/5 Ml Liquid 10 Ml PO PRN Q8HRS PRN Trazodone Hcl 50 Mg Tablet 25 Mg PO QHS Latanoprost 2.5 Ml Drops 1 Drop OU QHS Donepezil Hcl 5 Mg Tablet 5 Mg PO DAILY Quetiapine Fumarate 100 Mg Tablet 100 Mg PO BID Rivastigmine (Rivastigmine Tartrate) 1.5 Mg Capsule 1.5 Mg PO BID Colace (Docusate Sodium) 100 Mg Capsule 100 Mg PO DAILY Depakote Sprinkle (Divalproex Sodium) 125 Mg Cap.sprink 125 Mg PO QID Give with food. Do Not Crush or chew lpellets. Hazardous Medication: Dispose of unused medication and packaging in proper container. Provera (Medroxyprogesterone Acetate) 2.5 Mg Tablet 5 Mg PO DAILY Tylenol (Acetaminophen) 325 Mg Tablet 650 Mg PO PRN TID PRN Not to exceed 3 grams per day Vitamin D3 (Cholecalciferol (Vitamin D3)) 1,000 Unit Tablet 1,000 Unit PO DAILY Oxybutynin Chloride 5 Mg Tablet 2.5 Mg PO PRN BID PRN Diagnosis: Problems: (1) Dementia (2) Anxiety disorder (3) Impulse control disorder (4) Dementia, vascular, with depression (5) Dementia, vascular, with delusions (6) Dementia in Alzheimer's disease with depression (7) Dementia in Alzheimer's disease with delusions SAPPHIRE MATTHEW MD Jul 22, 2016 09:32
--- NOTE | 2016-07-22 09:40 | PN ---
DATE: 07/21/2016 PSYCHIATRIC PROGRESS NOTE This note covers elements not covered in my initial noted. Per nursing report, the patient has been more appropriate, less agitated today per nursing report. REVIEW OF SYSTEMS: Ambulation impaired, in his wheelchair. No CV, , pulmonary, eye system symptoms on review. MENTAL STATUS EXAM: Oriented to himself and situation. Speech coherent, has some latency, abstraction fair, computation impaired, language function intact. Memory is impaired. LABORATORY DATA: Reviewed. 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 PLAN: Continue current psychotropics mentioned in my initial note. Adjust further as clinically indicated. MAN Tory MATTHEW MD DR: AR/becky JOB#: [id number] / [id number]
--- NOTE | 2016-07-22 09:41 | PN ---
DATE: 07/20/2016 PSYCHIATRIC PROGRESS NOTE This is a late entry for 07/20/2016 covers elements not covered in my initial note. SUBJECTIVE: The patient became agitated earlier in the day on 07/20/2016 had to be placed in a secure fletcher per nursing staff. He grabbed the chair for another patient was irritable, defiant nonredirectable per nursing staff anxious. REVIEW OF SYSTEMS: Ambulation impaired in his wheelchair. No CV, , pulmonary, eye system symptoms on review. MENTAL STATUS EXAM: Oriented to himself at times to situation. Speech coherent, abstraction fair, computation impaired, language function intact. Attention span short. LABORATORY DATA: Reviewed. IMPRESSION: Unchanged from initial note. PLAN: Continue trazodone, Exelon, Seroquel, Provera, Aricept, Depakote along with Cymbalta and Zyprexa p.r.n. Start BuSpar 5 mg twice a day. Adjust further as clinically indicated. SAPPHIRE MATTHEW MD DR: AR/becky JOB#: [id number] / [id number]
[2016-07-22] MEDS: OLANZAPINE ZYDIS 5 MG TAB.RAPDIS PO PRN ×2 (10:14→19:30)
[2016-07-22] MEDS: PRENATAL MULTIVITAMIN TABLET. PO SCH (12:19)
[2016-07-22 16:14] VITALS: BP 121/75
[2016-07-22] MEDS: traZODone 50 MG TABLET. PO SCH (19:30)
[2016-07-22] MEDS: RIVASTIGMINE 3 MG CAPSULE. PO SCH (19:30)
[2016-07-22] MEDS: LATANOPROST 0.005% OPHTH SOLUTION 2.5ML BOTTLE. OU SCH (19:31)
--- NOTE | 2016-07-23 01:53 | PN ---
DATE: 07/22/2016 PSYCHIATRIC PROGRESS NOTE This note covers elements not covered in my initial note. Per nursing report, the patient has been intermittently agitated this morning, grabbed the wheelchair off another patient, was kicking around at staff, swiped things off the table till they dropped on the floor. He received Zyprexa p.r.n., seemed to help significantly. This evening as I met with him, he is pleasant, cooperative, confused, playing blackjack with nursing staff. REVIEW OF SYSTEMS: Ambulation impaired, in his wheelchair. No CV, , pulmonary, eye system symptoms on review. MENTAL STATUS EXAM: Oriented to himself. Insight, judgment, recent memory is impaired. Language function is intact. Attention span is short. Mood and affect remain somewhat anxious, labile. LABORATORY DATA: Reviewed. IMPRESSION: Unchanged from initial note. PLAN: Increase BuSpar from 5 b.i.d. to 5 t.i.d. Continue rest of the psychotropics mentioned in my initial note. Adjust as indicated. MAN Tory MATTHEW MD DR: AR/becky JOB#: [id number] / [id number]
[2016-07-23 06:58] VITALS: BP 146/87
[2016-07-23] MEDS: CHOLECALCIFEROL (VITAMIN D3) 1,000 UNIT TABLET PO SCH (08:36)
[2016-07-23] MEDS: DONEPEZIL HCL 5 MG TABLET. PO SCH (08:36)
[2016-07-23] MEDS: DIVALPROEX 125 MG CAP.SPRINK PO SCH ×2 (08:36→16:21)
[2016-07-23] MEDS: RIVASTIGMINE. 1.5 MG CAPSULE. PO SCH (08:36)
[2016-07-23] MEDS: MEDROXYPROGESTERONE 2.5 MG PO SCH (08:36)
[2016-07-23] MEDS: MAGNESIUM OXIDE 400 MG TABLET PO SCH (08:37)
[2016-07-23] MEDS: QUEtiapine 50 MG TABLET. PO SCH ×4 (08:37→20:08)
[2016-07-23] MEDS: DULOXETINE HCL 20 MG CAPSULE.DR PO SCH (08:37)
[2016-07-23] MEDS: busPIRone 5 MG TABLET. PO SCH ×3 (08:37→20:08)
[2016-07-23] MEDS: DOCUSATE SODIUM 100 MG CAPSULE PO SCH (08:37)
[2016-07-23] MEDS: PRENATAL MULTIVITAMIN TABLET. PO SCH (12:39)
[2016-07-23 16:33] VITALS: BP 133/67
[2016-07-23] MEDS: RIVASTIGMINE 3 MG CAPSULE. PO SCH (20:08)
[2016-07-23] MEDS: LATANOPROST 0.005% OPHTH SOLUTION 2.5ML BOTTLE. OU SCH (20:09)
[2016-07-23] MEDS: traZODone 50 MG TABLET. PO SCH (20:09)
--- NOTE | 2016-07-23 21:19 | PDOC ---
Exam Scar Demential Exam: Scar Note: Please also refer to the separate dictated note~for this date of service dictated separately.~Patient seen individually. Discussed the patient with Nursing staff reviewed the chart.~Reviewed interim history and current functioning. Reviewed vital signs,~Labs/ Radiology~and current medications noted below. Continue current treatment with the changes noted in the dictated addendum note Assessment: Vital Signs: Vital Signs Date Time Temp Pulse Resp B/P Pulse Ox O2 Delivery O2 Flow Rate FiO2 07/23/16 16:33 98.0 73 16 133/67 95 Room Air I&O Intake and Output 07/23/16 07:00 Intake Total 720 ml Balance 720 ml Intake Oral 720 ml # Bowel Movements 1 Current Medications: Meds: Current Medications Acetaminophen (Tylenol) 650 mg PRN Q6HRS PRN PO PAIN / TEMP; Start 07/04/16 at 23:00; Stop 07/05/16 at 07:21; Status DC Multi-Ingredient Ointment (Analgesic [place]) 1 martir PRN QID PRN TP MUSCLE PAIN; Start 07/04/16 at 23:00 Al Hydroxide/Mg Hydroxide (Mylanta Plus Xs) 15 ml PRN AFTMEALHC PRN PO DYSPEPSIA; Start 07/04/16 at 23:00 Magnesium Hydroxide (Milk Of Magnesia) 2,400 mg PRN QHS PRN PO CONSTIPATION; Start 07/04/16 at 23:00 Divalproex Sodium (Depakote Sprinkles) 125 mg QID PO Last administered on 17:06; Start 07/05/16 at 09:00; Stop 07/10/16 at 17:21; Status DC Donepezil HCl (Aricept) 5 mg DAILY PO Last administered on 07/23/16 08:36; Start 07/05/16 at 09:00 Haloperidol (Haldol) 1 mg PRN Q4HRS PRN PO AGITATION Last administered on 11:40; Start 07/05/16 at 00:30; Stop 07/11/16 at 14:51; Status DC Medroxyprogesterone Acetate (Provera) 5 mg DAILY PO Last administered on 08:36; Start 07/05/16 at 09:00 Quetiapine Fumarate (SEROquel) 100 mg BID PO Last administered on 07/09/16 08: 14; Start 07/05/16 at 09:00; Stop 07/09/16 at 15:41; Status DC Rivastigmine Tartrate (Exelon) 1.5 mg BID PO Last administered on 07/07/16 19: 24; Start 07/05/16 at 09:00; Stop 07/08/16 at 11:41; Status DC Trazodone HCl (Desyrel) 25 mg QHS PO Last administered on 07/23/16 20:09; Start 07/05/16 at 21:00 Acetaminophen (Tylenol) 650 mg PRN TID PRN PO PAIN / TEMP Last administered on 07/10/16 19:51; Start 07/05/16 at 07:15 Cephalexin HCl (Keflex) 500 mg TID PO Last administered on 07/07/16 08:47; Start 07/05/16 at 09:00; Stop 07/07/16 at 12:32; Status DC Vitamin D (Vitamin D3) 1,000 unit DAILY PO Last administered on 07/23/16 08:36 ; Start 07/05/16 at 09:00 Docusate Sodium (Colace) 100 mg DAILY PO Last administered on 07/23/16 08:37; Start 07/05/16 at 09:00 Guaifenesin (Robitussin) 200 mg PRN Q8HRS PRN PO COUGH; Start 07/05/16 at 07:15 Latanoprost (Xalatan) 1 drop QHS OU Last administered on 07/23/16 20:09; Start 07/05/16 at 21:00 Oxybutynin Chloride (Ditropan) 2.5 mg PRN BID PRN PO BLADDER SPASM; Start 07/05 at 07:15 Cyclobenzaprine HCl (Flexeril) 5 mg PRN TID PRN PO MUSCLE SPASMS; Start at 07:30 Magnesium Oxide (Magnesium Oxide) 400 mg DAILY PO Last administered on 08:37; Start 07/05/16 at 11:00 Prenat Multivit/ [place]/Iron/Folic Ac (Multivitamin ) 1 tab DAILYBFRLUN PO Last administered on 07/23/16 12:39; Start 07/06/16 at 11:30 Rivastigmine Tartrate (Exelon) 1.5 mg DAILY08 PO Last administered on 08:36; Start 07/09/16 at 08:00 Rivastigmine Tartrate (Exelon) 3 mg HS PO Last administered on 07/23/16 20:08 ; Start 07/08/16 at 21:00 Duloxetine HCl (Cymbalta) 20 mg DAILY PO Last administered on 07/23/16 08:37; Start 07/09/16 at 09:00 Quetiapine Fumarate (SEROquel) 50 mg QID PO Last administered on 07/23/16 20: 08; Start 07/09/16 at 17:00 Divalproex Sodium (Depakote Sprinkles) 250 mg TID PO Last administered on 13:10; Start 07/10/16 at 21:00; Stop 07/15/16 at 18:32; Status DC Olanzapine (Zyprexa Zydis) 2.5 mg PRN Q2HR PRN PO ANXIETY / AGITATION Last administered on 07/22/16 19:30; Start 07/11/16 at 15:00 Divalproex Sodium (Depakote Sprinkles) 375 mg DAILY PO Last administered on 08:36; Start 07/16/16 at 09:00 Divalproex Sodium (Depakote Sprinkles) 500 mg DAILY16 PO Last administered on 16:21; Start 07/16/16 at 16:00 Buspirone HCl (Buspar) 5 mg BID PO Last administered on 07/22/16 08:21; Start 07/20/16 at 21:00; Stop 07/22/16 at 18:44; Status DC Buspirone HCl (Buspar) 5 mg TID PO Last administered on 07/23/16 20:08; Start 07/22/16 at 21:00 Active Scripts Active Reported Keflex (Cephalexin) 500 Mg Capsule 500 Mg PO TID Cyclobenzaprine Hcl 5 Mg Tablet 5 Mg PO PRN TID PRN Haloperidol 1 Mg Tablet 1 Mg PO PRN Q4HRS PRN Robafen (Guaifenesin) 100 Mg/5 Ml Liquid 10 Ml PO PRN Q8HRS PRN Trazodone Hcl 50 Mg Tablet 25 Mg PO QHS Latanoprost 2.5 Ml Drops 1 Drop OU QHS Donepezil Hcl 5 Mg Tablet 5 Mg PO DAILY Quetiapine Fumarate 100 Mg Tablet 100 Mg PO BID Rivastigmine (Rivastigmine Tartrate) 1.5 Mg Capsule 1.5 Mg PO BID Colace (Docusate Sodium) 100 Mg Capsule 100 Mg PO DAILY Depakote Sprinkle (Divalproex Sodium) 125 Mg Cap.sprink 125 Mg PO QID Give with food. Do Not Crush or chew lpellets. Hazardous Medication: Dispose of unused medication and packaging in proper container. 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
[2016-07-24 05:43] VITALS: BP 124/78
[2016-07-24] MEDS: RIVASTIGMINE. 1.5 MG CAPSULE. PO SCH (07:21)
[2016-07-24] MEDS: QUEtiapine 50 MG TABLET. PO SCH ×4 (07:21→19:52)
[2016-07-24] MEDS: CHOLECALCIFEROL (VITAMIN D3) 1,000 UNIT TABLET PO SCH (07:21)
[2016-07-24] MEDS: DOCUSATE SODIUM 100 MG CAPSULE PO SCH (07:22)
[2016-07-24] MEDS: MEDROXYPROGESTERONE 2.5 MG PO SCH (07:22)
[2016-07-24] MEDS: busPIRone 5 MG TABLET. PO SCH ×3 (07:22→19:52)
[2016-07-24] MEDS: DONEPEZIL HCL 5 MG TABLET. PO SCH (07:22)
[2016-07-24] MEDS: MAGNESIUM OXIDE 400 MG TABLET PO SCH (07:22)
[2016-07-24] MEDS: DIVALPROEX 125 MG CAP.SPRINK PO SCH ×2 (07:22→16:19)
[2016-07-24] MEDS: DULOXETINE HCL 20 MG CAPSULE.DR PO SCH (07:24)
[2016-07-24] MEDS: PRENATAL MULTIVITAMIN TABLET. PO SCH (11:56)
[2016-07-24 15:45] VITALS: BP 106/68
[2016-07-24] MEDS: traZODone 50 MG TABLET. PO SCH (19:52)
[2016-07-24] MEDS: RIVASTIGMINE 3 MG CAPSULE. PO SCH (19:52)
[2016-07-24] MEDS: LATANOPROST 0.005% OPHTH SOLUTION 2.5ML BOTTLE. OU SCH (19:53)
--- NOTE | 2016-07-24 20:55 | PN ---
DATE: 07/22/2016 This is a late entry for 07/22/2016 covers elements, not covered in my initial note. SUBJECTIVE: Overall, per nursing report, the patient has been fairly cooperative on the unit, get a little irritable at times, but redirects. REVIEW OF SYSTEMS: Ambulation impaired, in his wheelchair. No CV, , pulmonary, eye, ENT system symptoms on review. MENTAL STATUS EXAM: Oriented to himself and situation. Speech coherent, abstraction fair, computation impaired, language function intact, attention span short. Mood and affect is improved. LABORATORY DATA: Reviewed. IMPRESSION: Major depressive disorder with psychotic features in partial remission, major neurocognitive disorder, Alzheimer, vascular with depression, delusions, latter in partial remission; anxiety disorder, unspecified; impulse control disorder, unspecified. PLAN: Continue current psychotropics mentioned in my initial note. Adjust further as clinically indicated. MAN Tory MATTHEW MD DR: AR/becky JOB#: [id number] / [id number]
--- NOTE | 2016-07-24 21:04 | PDOC ---
Exam Scar Demential Exam: Scar Note: Please also refer to the separate dictated note~for this date of service dictated separately.~Patient seen individually. Discussed the patient with Nursing staff reviewed the chart.~Reviewed interim history and current functioning. Reviewed vital signs,~Labs/ Radiology~and current medications noted below. Continue current treatment with the changes noted in the dictated addendum note Assessment: Vital Signs: Vital Signs Date Time Temp Pulse Resp B/P Pulse Ox O2 Delivery O2 Flow Rate FiO2 07/24/16 15:45 97.2 64 20 106/68 95 07/23/16 16:33 Room Air I&O Intake and Output 07/24/16 07:00 Intake Total 1080 ml Balance 1080 ml Intake Oral 1080 ml Current Medications: Meds: Current Medications Acetaminophen (Tylenol) 650 mg PRN Q6HRS PRN PO PAIN / TEMP; Start 07/04/16 at 23:00; Stop 07/05/16 at 07:21; Status DC Multi-Ingredient Ointment (Analgesic [place]) 1 martir PRN QID PRN TP MUSCLE PAIN; Start 07/04/16 at 23:00 Al Hydroxide/Mg Hydroxide (Mylanta Plus Xs) 15 ml PRN AFTMEALHC PRN PO DYSPEPSIA; Start 07/04/16 at 23:00 Magnesium Hydroxide (Milk Of Magnesia) 2,400 mg PRN QHS PRN PO CONSTIPATION; Start 07/04/16 at 23:00 Divalproex Sodium (Depakote Sprinkles) 125 mg QID PO Last administered on 17:06; Start 07/05/16 at 09:00; Stop 07/10/16 at 17:21; Status DC Donepezil HCl (Aricept) 5 mg DAILY PO Last administered on 07/24/16 07:22; Start 07/05/16 at 09:00 Haloperidol (Haldol) 1 mg PRN Q4HRS PRN PO AGITATION Last administered on 11:40; Start 07/05/16 at 00:30; Stop 07/11/16 at 14:51; Status DC Medroxyprogesterone Acetate (Provera) 5 mg DAILY PO Last administered on 07:22; Start 07/05/16 at 09:00 Quetiapine Fumarate (SEROquel) 100 mg BID PO Last administered on 07/09/16 08: 14; Start 07/05/16 at 09:00; Stop 07/09/16 at 15:41; Status DC Rivastigmine Tartrate (Exelon) 1.5 mg BID PO Last administered on 07/07/16 19: 24; Start 07/05/16 at 09:00; Stop 07/08/16 at 11:41; Status DC Trazodone HCl (Desyrel) 25 mg QHS PO Last administered on 07/24/16 19:52; Start 07/05/16 at 21:00 Acetaminophen (Tylenol) 650 mg PRN TID PRN PO PAIN / TEMP Last administered on 07/10/16 19:51; Start 07/05/16 at 07:15 Cephalexin HCl (Keflex) 500 mg TID PO Last administered on 07/07/16 08:47; Start 07/05/16 at 09:00; Stop 07/07/16 at 12:32; Status DC Vitamin D (Vitamin D3) 1,000 unit DAILY PO Last administered on 07/24/16 07:21 ; Start 07/05/16 at 09:00 Docusate Sodium (Colace) 100 mg DAILY PO Last administered on 07/24/16 07:22; Start 07/05/16 at 09:00 Guaifenesin (Robitussin) 200 mg PRN Q8HRS PRN PO COUGH; Start 07/05/16 at 07:15 Latanoprost (Xalatan) 1 drop QHS OU Last administered on 07/24/16 19:53; Start 07/05/16 at 21:00 Oxybutynin Chloride (Ditropan) 2.5 mg PRN BID PRN PO BLADDER SPASM; Start 07/05 at 07:15 Cyclobenzaprine HCl (Flexeril) 5 mg PRN TID PRN PO MUSCLE SPASMS; Start at 07:30 Magnesium Oxide (Magnesium Oxide) 400 mg DAILY PO Last administered on 07:22; Start 07/05/16 at 11:00 Prenat Multivit/ [employer]/Iron/Folic Ac (Multivitamin ) 1 tab DAILYBFRLUN PO Last administered on 07/24/16 11:56; Start 07/06/16 at 11:30 Rivastigmine Tartrate (Exelon) 1.5 mg DAILY08 PO Last administered on 07:21; Start 07/09/16 at 08:00 Rivastigmine Tartrate (Exelon) 3 mg HS PO Last administered on 07/24/16 19:52 ; Start 07/08/16 at 21:00 Duloxetine HCl (Cymbalta) 20 mg DAILY PO Last administered on 07/24/16 07:24; Start 07/09/16 at 09:00 Quetiapine Fumarate (SEROquel) 50 mg QID PO Last administered on 07/24/16 19: 52; Start 07/09/16 at 17:00 Divalproex Sodium (Depakote Sprinkles) 250 mg TID PO Last administered on 13:10; Start 07/10/16 at 21:00; Stop 07/15/16 at 18:32; Status DC Olanzapine (Zyprexa Zydis) 2.5 mg PRN Q2HR PRN PO ANXIETY / AGITATION Last administered on 07/22/16 19:30; Start 07/11/16 at 15:00 Divalproex Sodium (Depakote Sprinkles) 375 mg DAILY PO Last administered on 07:22; Start 07/16/16 at 09:00 Divalproex Sodium (Depakote Sprinkles) 500 mg DAILY16 PO Last administered on 16:19; Start 07/16/16 at 16:00 Buspirone HCl (Buspar) 5 mg BID PO Last administered on 07/22/16 08:21; Start 07/20/16 at 21:00; Stop 07/22/16 at 18:44; Status DC Buspirone HCl (Buspar) 5 mg TID PO Last administered on 07/24/16 19:52; Start 07/22/16 at 21:00 Active Scripts Active Reported Keflex (Cephalexin) 500 Mg Capsule 500 Mg PO TID Cyclobenzaprine Hcl 5 Mg Tablet 5 Mg PO PRN TID PRN Haloperidol 1 Mg Tablet 1 Mg PO PRN Q4HRS PRN Robafen (Guaifenesin) 100 Mg/5 Ml Liquid 10 Ml PO PRN Q8HRS PRN Trazodone Hcl 50 Mg Tablet 25 Mg PO QHS Latanoprost 2.5 Ml Drops 1 Drop OU QHS Donepezil Hcl 5 Mg Tablet 5 Mg PO DAILY Quetiapine Fumarate 100 Mg Tablet 100 Mg PO BID Rivastigmine (Rivastigmine Tartrate) 1.5 Mg Capsule 1.5 Mg PO BID Colace (Docusate Sodium) 100 Mg Capsule 100 Mg PO DAILY Depakote Sprinkle (Divalproex Sodium) 125 Mg Cap.sprink 125 Mg PO QID Give with food. Do Not Crush or chew lpellets. Hazardous Medication: Dispose of unused medication and packaging in proper container. Provera (Medroxyprogesterone Acetate) 2.5 Mg Tablet 5 Mg PO DAILY Tylenol (Acetaminophen) 325 Mg Tablet 650 Mg PO PRN TID PRN Not to exceed 3 grams per day Vitamin D3 (Cholecalciferol (Vitamin D3)) 1,000 Unit Tablet 1,000 Unit PO DAILY Oxybutynin Chloride 5 Mg Tablet 2.5 Mg PO PRN BID PRN Diagnosis: Problems: (1) Dementia (2) Anxiety disorder (3) Impulse control disorder (4) Dementia, vascular, with depression (5) Dementia, vascular, with delusions (6) Dementia in Alzheimer's disease with depression (7) Dementia in Alzheimer's disease with delusions SAPPHIRE MATTHEW MD Jul 24, 2016 21:04
[2016-07-25] MEDS ORDERED: MAGN2400 PO (02:52)
[2016-07-25] MEDS ORDERED: MAG360OR24 PO (02:52)
[2016-07-25] MEDS ORDERED: MAGN400T3 PO (02:53)
[2016-07-25] MEDS ORDERED: METH29OI TP (02:54)
[2016-07-25] MEDS ORDERED: PNV1TABL78 PO (02:55)
[2016-07-25] MEDS ORDERED: DIVA125C PO ×2 (03:16→03:18)
[2016-07-25] MEDS ORDERED: DULO20CA17 PO (03:20)
[2016-07-25] MEDS ORDERED: OLAN5TAB5 PO (03:22)
[2016-07-25] MEDS ORDERED: QUET50TA PO (03:23)
[2016-07-25] MEDS ORDERED: RIVA3CAP4 PO (03:24)
[2016-07-25] MEDS ORDERED: RIVA1.5C4 PO (03:24)
[2016-07-25] MEDS ORDERED: BUSP5TAB PO (03:25)
[2016-07-25 05:50] VITALS: BP 139/82
[2016-07-25 06:59] LABS: HEMOGLOBIN 11.1 g/dL (13.0-17.5); RED BLOOD COUNT 3.49 x10^6/uL (4.30-5.70); RED CELL DISTRIBUTION WIDTH 13.9 % (11.5-14.5); WHITE BLOOD COUNT 7.8 x10^3/uL (4.0-11.0)
[2016-07-25 07:12] LABS: ALBUMIN 2.9 g/dL (3.4-5.0); ALBUMIN/GLOBULIN RATIO 0.9 (1.0-1.7); CALCIUM 8.6 mg/dL (8.5-10.1); GFR 70.7; POTASSIUM 4.5 mmol/L (3.5-5.1); TOTAL BILIRUBIN 0.2 mg/dL (0.2-1.0); TOTAL PROTEIN 6.3 g/dL (6.4-8.2)
[2016-07-25] MEDS: RIVASTIGMINE. 1.5 MG CAPSULE. PO SCH (07:43)
[2016-07-25] MEDS: DONEPEZIL HCL 5 MG TABLET. PO SCH (07:45)
[2016-07-25] MEDS: MEDROXYPROGESTERONE 2.5 MG PO SCH (07:45)
[2016-07-25] MEDS: busPIRone 5 MG TABLET. PO SCH ×3 (07:45→19:51)
[2016-07-25] MEDS: DIVALPROEX 125 MG CAP.SPRINK PO SCH ×2 (07:46→15:39)
[2016-07-25] MEDS: MAGNESIUM OXIDE 400 MG TABLET PO SCH (07:46)
[2016-07-25] MEDS: DULOXETINE HCL 20 MG CAPSULE.DR PO SCH (07:46)
[2016-07-25] MEDS: QUEtiapine 50 MG TABLET. PO SCH ×4 (07:46→19:51)
[2016-07-25] MEDS: DOCUSATE SODIUM 100 MG CAPSULE PO SCH (07:46)
[2016-07-25] MEDS: CHOLECALCIFEROL (VITAMIN D3) 1,000 UNIT TABLET PO SCH (07:46)
[2016-07-25] MEDS: PRENATAL MULTIVITAMIN TABLET. PO SCH (12:26)
[2016-07-25 15:39] VITALS: BP 121/78
[2016-07-25] MEDS: traZODone 50 MG TABLET. PO SCH (19:51)
[2016-07-25] MEDS: LATANOPROST 0.005% OPHTH SOLUTION 2.5ML BOTTLE. OU SCH (19:51)
[2016-07-25] MEDS: RIVASTIGMINE 3 MG CAPSULE. PO SCH (19:51)
--- NOTE | 2016-07-25 21:58 | PDOC ---
Exam Scar Demential Exam: Scar Note: Please also refer to the separate dictated note~for this date of service dictated separately.~Patient seen individually. Discussed the patient with Nursing staff reviewed the chart.~Reviewed interim history and current functioning. Reviewed vital signs,~Labs/ Radiology~and current medications noted below. Continue current treatment with the changes noted in the dictated addendum note Assessment: Vital Signs: Vital Signs Date Time Temp Pulse Resp B/P Pulse Ox O2 Delivery O2 Flow Rate FiO2 07/25/16 15:39 97.4 71 18 121/78 95 Room Air I&O Intake and Output 07/25/16 07:00 Intake Total 840 ml Balance 840 ml Intake Oral 840 ml Labs: Laboratory Tests Test 07/25/16 06:34 White Blood Count 7.8x10^3/uL (4.0-11.0) Red Blood Count 3.49x10^6/uL (4.30-5.70) L Hemoglobin 11.1g/dL (13.0-17.5) L Hematocrit 34.0% (39.0-53.0) L Mean Corpuscular Volume 97fL (79-100) Mean Corpuscular Hemoglobin 32pg (25-35) Mean Corpuscular Hemoglobin Concent 33g/dL (31-37) Red Cell Distribution Width 13.9% (11.5-14.5) Platelet Count 178x10^3/uL (140-400) Sodium Level 144mmol/L (136-145) Potassium Level 4.5mmol/L (3.5-5.1) Chloride Level 107mmol/L (98-107) Carbon Dioxide Level 34mmol/L (21-32) H Anion Gap 3 (6-14) L Blood Urea Nitrogen 27mg/dL (8-26) H Creatinine 1.0mg/dL (0.7-1.3) Estimated GFR (Cockcroft-Gault) 70.7 BUN/Creatinine Ratio 27 (6-20) H Glucose Level 87mg/dL (70-99) Calcium Level 8.6mg/dL (8.5-10.1) Total Bilirubin 0.2mg/dL (0.2-1.0) Aspartate Amino Transferase (AST) 9U/L (15-37) L Alanine Aminotransferase (ALT) 12U/L (16-63) L Alkaline Phosphatase 70U/L (46-116) Total Protein 6.3g/dL (6.4-8.2) L Albumin 2.9g/dL (3.4-5.0) L Albumin/Globulin Ratio 0.9 (1.0-1.7) L Current Medications: Meds: Current Medications Acetaminophen (Tylenol) 650 mg PRN Q6HRS PRN PO PAIN / TEMP; Start 07/04/16 at 23:00; Stop 07/05/16 at 07:21; Status DC Multi-Ingredient Ointment (Analgesic [place]) 1 sergio PRN QID PRN TP MUSCLE PAIN; Start 07/04/16 at 23:00 Al Hydroxide/Mg Hydroxide (Mylanta Plus Xs) 15 ml PRN AFTMEALHC PRN PO DYSPEPSIA; Start 07/04/16 at 23:00 Magnesium Hydroxide (Milk Of Magnesia) 2,400 mg PRN QHS PRN PO CONSTIPATION; Start 07/04/16 at 23:00 Divalproex Sodium (Depakote Sprinkles) 125 mg QID PO Last administered on 17:06; Start 07/05/16 at 09:00; Stop 07/10/16 at 17:21; Status DC Donepezil HCl (Aricept) 5 mg DAILY PO Last administered on 07/25/16 07:45; Start 07/05/16 at 09:00 Haloperidol (Haldol) 1 mg PRN Q4HRS PRN PO AGITATION Last administered on 11:40; Start 07/05/16 at 00:30; Stop 07/11/16 at 14:51; Status DC Medroxyprogesterone Acetate (Provera) 5 mg DAILY PO Last administered on 07:45; Start 07/05/16 at 09:00 Quetiapine Fumarate (SEROquel) 100 mg BID PO Last administered on 07/09/16 08: 14; Start 07/05/16 at 09:00; Stop 07/09/16 at 15:41; Status DC Rivastigmine Tartrate (Exelon) 1.5 mg BID PO Last administered on 07/07/16 19: 24; Start 07/05/16 at 09:00; Stop 07/08/16 at 11:41; Status DC Trazodone HCl (Desyrel) 25 mg QHS PO Last administered on 07/25/16 19:51; Start 07/05/16 at 21:00 Acetaminophen (Tylenol) 650 mg PRN TID PRN PO PAIN / TEMP Last administered on 07/10/16 19:51; Start 07/05/16 at 07:15 Cephalexin HCl (Keflex) 500 mg TID PO Last administered on 07/07/16 08:47; Start 07/05/16 at 09:00; Stop 07/07/16 at 12:32; Status DC Vitamin D (Vitamin D3) 1,000 unit DAILY PO Last administered on 07/25/16 07:46 ; Start 07/05/16 at 09:00 Docusate Sodium (Colace) 100 mg DAILY PO Last administered on 07/25/16 07:46; Start 07/05/16 at 09:00 Guaifenesin (Robitussin) 200 mg PRN Q8HRS PRN PO COUGH; Start 07/05/16 at 07:15 Latanoprost (Xalatan) 1 drop QHS OU Last administered on 07/25/16 19:51; Start 07/05/16 at 21:00 Oxybutynin Chloride (Ditropan) 2.5 mg PRN BID PRN PO BLADDER SPASM; Start 07/05 at 07:15 Cyclobenzaprine HCl (Flexeril) 5 mg PRN TID PRN PO MUSCLE SPASMS; Start at 07:30 Magnesium Oxide (Magnesium Oxide) 400 mg DAILY PO Last administered on 07:46; Start 07/05/16 at 11:00 Prenat Multivit/ [place]/Iron/Folic Ac (Multivitamin ) 1 tab DAILYBFRLUN PO Last administered on 07/25/16 12:26; Start 07/06/16 at 11:30 Rivastigmine Tartrate (Exelon) 1.5 mg DAILY08 PO Last administered on 07:43; Start 07/09/16 at 08:00 Rivastigmine Tartrate (Exelon) 3 mg HS PO Last administered on 07/25/16 19:51 ; Start 07/08/16 at 21:00 Duloxetine HCl (Cymbalta) 20 mg DAILY PO Last administered on 07/25/16 07:46; Start 07/09/16 at 09:00 Quetiapine Fumarate (SEROquel) 50 mg QID PO Last administered on 07/25/16 19: 51; Start 07/09/16 at 17:00 Divalproex Sodium (Depakote Sprinkles) 250 mg TID PO Last administered on 13:10; Start 07/10/16 at 21:00; Stop 07/15/16 at 18:32; Status DC Olanzapine (Zyprexa Zydis) 2.5 mg PRN Q2HR PRN PO ANXIETY / AGITATION Last administered on 07/22/16 19:30; Start 07/11/16 at 15:00 Divalproex Sodium (Depakote Sprinkles) 375 mg DAILY PO Last administered on 07:46; Start 07/16/16 at 09:00 Divalproex Sodium (Depakote Sprinkles) 500 mg DAILY16 PO Last administered on 15:39; Start 07/16/16 at 16:00 Buspirone HCl (Buspar) 5 mg BID PO Last administered on 07/22/16 08:21; Start 07/20/16 at 21:00; Stop 07/22/16 at 18:44; Status DC Buspirone HCl (Buspar) 5 mg TID PO Last administered on 07/25/16 19:51; Start 07/22/16 at 21:00 Active Scripts Active Reported Buspirone Hcl 5 Mg Tablet 5 Mg PO TID Rivastigmine (Rivastigmine Tartrate) 3 Mg Capsule 3 Mg PO QHS Rivastigmine (Rivastigmine Tartrate) 1.5 Mg Capsule 1.5 Mg PO DAILY08 Quetiapine Fumarate 50 Mg Tablet 50 Mg PO QID Zyprexa Zydis (Olanzapine) 5 Mg Tab.rapdis 2.5 Mg PO PRN Q2HR PRN Duloxetine Hcl 20 Mg Capsule.dr 20 Mg PO DAILY Depakote Sprinkle (Divalproex Sodium) 125 Mg Cap.sprink 500 Mg PO DAILY16 Depakote Sprinkle (Divalproex Sodium) 125 Mg Cap.sprink 375 Mg PO DAILY Multi Tablet (Pnv No.122/Iron/Folic Acid) 1 Each Tablet 1 Tab PO DAILYBFRLUN Analgesic [place] (Methyl Salicylate/Menthol) 29 Gm Oint...g. 1 Sergio TP PRN QID PRN Magnesium Oxide 400 Mg Tablet 400 Mg PO DAILY Milk Of Magnesia (Magnesium Hydroxide) 2,400 Mg/10 Ml Oral.susp 2,400 Mg PO PRN QHS PRN Alum-Mag Hydroxide-Simeth Liq (Mag Hydrox/Al Hydrox/Simeth) 360 Ml Oral.susp 15 Ml PO PRN AFTMEALHC PRN Keflex (Cephalexin) 500 Mg Capsule 500 Mg PO TID Cyclobenzaprine Hcl 5 Mg Tablet 5 Mg PO PRN TID PRN Haloperidol 1 Mg Tablet 1 Mg PO PRN Q4HRS PRN Robafen (Guaifenesin) 100 Mg/5 Ml Liquid 10 Ml PO PRN Q8HRS PRN Trazodone Hcl 50 Mg Tablet 25 Mg PO QHS Latanoprost 2.5 Ml Drops 1 Drop OU QHS Donepezil Hcl 5 Mg Tablet 5 Mg PO DAILY Quetiapine Fumarate 100 Mg Tablet 100 Mg PO BID Rivastigmine (Rivastigmine Tartrate) 1.5 Mg Capsule 1.5 Mg PO BID Colace (Docusate Sodium) 100 Mg Capsule 100 Mg PO DAILY Depakote Sprinkle (Divalproex Sodium) 125 Mg Cap.sprink 125 Mg PO QID Give with food. Do Not Crush or chew lpellets. Hazardous Medication: Dispose of unused medication and packaging in proper container. 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
--- NOTE | 2016-07-25 22:55 | PN ---
DATE: 07/24/2016 PSYCHIATRIC PROGRESS NOTE This is a late entry for 07/24/2016 covers elements not covered in my initial note. Per nursing report, the patient remains withdrawn at times, but has not been agitated, aggressive. I met with him in his room. REVIEW OF SYSTEMS: Ambulation impaired. He is lying in bed. No CV, , Pulmonary, Eye, ENT system symptoms on review. MENTAL STATUS EXAM: Oriented to self at times to situation. Speech coherent, has some latency. Abstraction fair. Computation impaired. Language function intact. Attention span short. Mood and affect appears improved. Less anxious. Less labile. LABORATORY DATA: Reviewed. IMPRESSION: Unchanged from initial note. PLAN: Continue psychotropics as mentioned in my initial note. Adjust further as clinically indicated. MAN Tory MATTEHW MD DR: AR/becky JOB#: [id number] / [id number]
[2016-07-26 05:34] VITALS: BP 151/73
[2016-07-26] MEDS: DOCUSATE SODIUM 100 MG CAPSULE PO SCH (08:03)
[2016-07-26] MEDS: MEDROXYPROGESTERONE 2.5 MG PO SCH (08:03)
[2016-07-26] MEDS: MAGNESIUM OXIDE 400 MG TABLET PO SCH (08:03)
[2016-07-26] MEDS: DULOXETINE HCL 20 MG CAPSULE.DR PO SCH (08:03)
[2016-07-26] MEDS: QUEtiapine 50 MG TABLET. PO SCH ×2 (08:03→12:28)
[2016-07-26] MEDS: busPIRone 5 MG TABLET. PO SCH ×2 (08:04→12:29)
[2016-07-26] MEDS: CHOLECALCIFEROL (VITAMIN D3) 1,000 UNIT TABLET PO SCH (08:04)
[2016-07-26] MEDS: DONEPEZIL HCL 5 MG TABLET. PO SCH (08:04)
[2016-07-26] MEDS: RIVASTIGMINE. 1.5 MG CAPSULE. PO SCH (08:04)
[2016-07-26] MEDS: DIVALPROEX 125 MG CAP.SPRINK PO SCH (08:05)
[2016-07-26] MEDS: PRENATAL MULTIVITAMIN TABLET. PO SCH (12:29)
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
--- NOTE | 2016-07-26 22:59 | PN ---
DATE: 07/25/2016 Psychiatric Progress Note SUBJECTIVE: This is a late entry for date of service, 07/25, covers elements not covered in my initial note of 07/25. Per nursing report, the patient remains somewhat withdrawn, but irritability is much improved. He remains somewhat confused, but not aggressive. REVIEW OF SYSTEMS: Ambulation impaired, in his wheelchair. No CV, , pulmonary, eye system symptoms on review. I met with him in his room. MENTAL STATUS EXAM: Oriented to himself and situation. Speech has some latency, coherent, abstraction fair, computation impaired, language function intact, attention span short. Mood and affect is improved. IMPRESSION: Unchanged from initial note. PLAN: Continue psychotropics mentioned in my initial note. Possible discharge to [facility] on 07/26. MAN Tory MATTHEW MD DR: AR/becky JOB#: [id number] / [id number]
== END 2016-07-26 12:30 | DRG 883 ==
LOC: ER 20:00 → GEROPSY 22:25
PROVIDERS: ADMIT Psychiatry & Neurology Psychiatry; ATTEND Psychiatry & Neurology Psychiatry
DX: F63.81 Intermittent explosive disorder (principal); F01.51 Vascular dementia, unspecified severity, with behavioral disturbance; E44.0 Moderate protein-calorie malnutrition; N39.0 Urinary tract infection, site not specified; F02.81 Dementia in other diseases classified elsewhere, unspecified severity, with behavioral disturbance; G30.0 Alzheimer's disease with early onset; F02.80 Dementia in other diseases classified elsewhere, unspecified severity, without behavioral disturbance, psychotic disturbance, mood disturbance, and anxiety; E03.9 Hypothyroidism, unspecified; E78.00 Pure hypercholesterolemia, unspecified; E78.5 Hyperlipidemia, unspecified; E83.42 Hypomagnesemia; F41.9 Anxiety disorder, unspecified; I10 Essential (primary) hypertension; M81.0 Age-related osteoporosis without current pathological fracture; F33.41 Major depressive disorder, recurrent, in partial remission; D64.9 Anemia, unspecified; E86.0 Dehydration; M19.90 Unspecified osteoarthritis, unspecified site; Z79.899 Other long term (current) drug therapy; Z85.46 Personal history of malignant neoplasm of prostate; Z68.22 Body mass index [BMI] 22.0-22.9, adult
CPT/HCPCS: 36415; 70450; 71010; 80053; 80061; 80164; 81001; 82010; 82140; 82306; 82607; 83036; 83540; 83550; 83735; 84436; 84443; 84480; 85027; 87086; 93005; G0480; G0481; G6038; 80196; 97110; 97116; 97530; 97535; 99285-25